=== PATIENT | female | born 1940 | race Caucasian/White ===

== ENCOUNTER 2017-03-18 07:24 | Day surgery (SDC) | payer MEDICARE ==
--- NOTE | 2017-03-18 07:19 | PCM.PREANE ---
Preanesthetic Assessment - Anesthesia/Transfusion/Family Hx Anesthesia History: Prior Anesthesia Without Reaction Family History of Anesthesia Reaction: No Transfusion History: Prior Transfusion Without Reaction Type of Transfusion Reactions: Reports: Unknown Intubation History: Unknown - Review of Systems General: No Symptoms Pulmonary: Other (COPD, emphysema ) Cardiovascular: Other (HTN, hx of [place] 3 years ago ) Gastrointestinal: No symptoms Neurological: Other (hx of TIA) Other: Reports: Easy Bruising, Thyroid Problems (hypothyroidism), Depression - Physical Assessment NPO Status Date: 03/17/17 NPO Status Time: 23:00 Pulse: 77 O2 Sat by Pulse Oximetry: 98 Respiratory Rate: 17 Blood Pressure: 149/77 Height: 1.6 m Weight: 37.195 kg ASA Class: 3 Mental Status: Alert & Oriented x3 Airway Class: Mallampati = 2 Dentition: Reports: Dentures (top), Partial (bottom) Thyro-Mental Finger Breadths: 3 Mouth Opening Finger Breadths: 3 ROM/Head Extension: Full Lungs: Clear to auscultation, Normal respiratory effort Cardiovascular: Regular Rate, Regular Rhythm - Allergies Allergies/Adverse Reactions: Allergies Allergy/AdvReac Type Severity Reaction Status Date / Time nickel Allergy Mild Rash Verified 03/17/17 14:09 acetaminophen [From Tylenol] Allergy eye and Verified 03/17/17 14:09 facial swelling Iodinated Contrast Media - Allergy Shortness Verified 03/17/17 14:09 Oral and of Breath [Iodinated Contrast Media - IV Dye] - Blood Blood Available: No Product(s) Available: None - Acknowledgements Anesthesia Type Planned: MAC Pt an Appropriate Candidate for the Planned Anesthesia: Yes Alternatives and Risks of Anesthesia Discussed w Pt/Guardian: Yes Pt/Guardian Understands and Agrees with Anesthesia Plan: Yes PreAnesthesia Questionnaire HEENT History: Reports: Impaired Vision, Other (See Below) Other HEENT History: glaucoma, jaw pain, dentures, glasses Cardiovascular History: Reports: Hypertension, Other (See Below) Other Cardiovascular History: chest pain, edema Respiratory History: Reports: COPD, Other (See Below) Other Respiratory History: emphysema Gastrointestinal History: Reports: Other (See Below) Other Gastrointestinal History: abdominal pain Genitourinary History: Reports: Other (See Below) Other Genitourinary History: urgency CHIEF INSPECTOR History: Reports: None Musculoskeletal History: Reports: Osteoporosis, RA, Other (See Below) Other Musculoskeletal History: osteopenia Neurological History: Reports: CVA, TIA, Other (See Below) Other Neuro History: cerebrovascular disease Psychiatric History: Reports: Depression Other Psychiatric History: fatigue Endocrine/Metabolic History: Reports: Hypothyroidism, Vitamin D Deficiency, Other (See Below) Other Endocrine/Metabolic History: hyperglycemia Hematologic History: Reports: Anemia, Other (See Below) Other Hematologic History: hyponatremia, myelodysplastic syndrome, macrocytic anemia Immunologic History: Reports: None Dermatologic History: Reports: None - Past Surgical History Head Surgeries/Procedures: Reports: None HEENT Surgical History: Reports: Cataract Surgery Cardiovascular Surgical History: Reports: Carotid Endarterectomy, Other (See Below) Other Cardiovascular Surgeries/Procedures: celiac artery stent GI Surgical History: Reports: Appendectomy Female Surgical History: Reports: Tubal Ligation Musculoskeletal Surgical History: Reports: Other (See Below) Other Musculoskeletal Surgeries/Procedures:: compresssion fracture, L carpal tunnel surgery, kyphoplasty Oncologic Surgical History: Reports: Bone Marrow Aspiration - SUBSTANCE USE Smoking Status *Q: Current Some Day Smoker Recreational Drug Use History: No - HOME MEDS Home Medications: Home Meds Losartan [Cozaar] 100 mg PO DAILY 01/10/15 [History] Phosp Acid/Dextrose/Fructose [Emetrol Oral Solution] 118 ml PO DAILY PRN [History] traMADol [Ultram] 50 mg PO Q8H PRN 06/29/15 [History] hydrALAZINE [Apresoline] 10 mg PO DAILY 10/17/15 [History] Calcium Carb & Citrate/Vit D3 [Calcium + D3 ER Tablet] 1 tab PO DAILY 03/17/17 [ History] Levothyroxine [Synthroid] 100 mg PO Q48H 03/17/17 [History] Menthol/Dimeth/Aloe Vera/Vit E [Gold [place] Body Lotion] 1 applic TOP ASDIRECTED PRN 03/17/17 [History] amLODIPine [Norvasc] 10 mg PO DAILY 03/17/17 [History] diphenhydrAMINE HCl [Benadryl] 25 mg PO DAILY 03/17/17 [History] - CURRENT (IN HOUSE) MEDS Current Meds: Current Medications Lactated Ringer's (Ringers, Lactated) 1,000 mls @ 125 mls/hr IV ASDIRECTED AYLA Stop: 03/18/17 23:00 Lidocaine/Sodium Bicarbonate (Buffered Lidocaine 1% In Ns 8.4%) 0.25 ml .XX ONETIME PRN PRN Reason: Prior to IV Start Stop: 03/18/17 18:00 Sodium Chloride (Saline Flush) 10 ml FLUSH ASDIRECTED PRN PRN Reason: Keep Vein Open Stop: 03/18/17 18:00
[~2017-03-18 07:24] MED LIST: Lactated Ringers 1,000 ML IV SCH; Lidocaine 1%/Sod Bicarbonate in NS 8.4% 1 ML Syringe PRN; Sodium Chloride 0.9% 10 ML Syringe FLUSH PRN
[2017-03-18] MEDS ORDERED: fentaNYL 100 MCG/2 ML SDV ONE (07:33)
[2017-03-18] MEDS ORDERED: Propofol 200 MG/20 ML SDV ONE (07:33)
[2017-03-18] MEDS ORDERED: Lidocaine 1% 4 ML ONE (07:33)
[2017-03-18] MEDS ORDERED: Heparin Sodium 5,000 Units/ML Vial ONE (07:39)
[2017-03-18] MEDS ORDERED: Lidocaine 1% 30 ML SDV ONE (07:39)
[2017-03-18] MEDS ORDERED: ePHEDrine/Normal Saline 25 MG/5 ML Syringe ONE (08:36)
--- NOTE | 2017-03-18 08:37 | PCM48HPAN ---
Post Anesthesia Note - EVALUATION WITHIN 48HRS OF ANESTHETIC Vital Signs in Normal Range: Yes Patient Participated in Evaluation: Yes Respiratory Function Stable: Yes Airway Patent: Yes Cardiovascular Function Stable: Yes Hydration Status Stable: Yes Pain Control Satisfactory: Yes Nausea and Vomiting Control Satisfactory: Yes Mental Status Recovered: Yes
[2017-03-18 10:08] VITALS: BP 123/75
--- NOTE | 2017-03-18 13:08 | PCM.OPNOTE ---
- General Post-Op/Procedure Note Date of Surgery/Procedure: 03/18/17 Operative Procedure(s): Bone marrow biopsy and aspiration Pre Op Diagnosis: Myelodysplastic disorder Post-Op Diagnosis: Same Anesthesia Technique: Local (3 mL), MAC Primary Surgeon: Keely Choi Anesthesia Provider: Siva Beatty Pathology: 1. Bone marrow aspirate 2. Bone marrow core Fluid Replacement, Intraop: 500 (mL crystalloid ) EBL in mLs: 10 (mL (aspirate) ) Complications: None Condition: Good Free Text/Narrative:: Indication for Procedure: The patient is a 76-year-old woman was referred to me by Dr. Srikanth Bassett for bone marrow biopsy for further work-up of myelodysplastic disorder. I discussed with the patient bone marrow biopsy and associated risks of the procedure. The patient found these risks acceptable and agreed to proceed. Description of Procedure: The patient was taken to the operating room and placed in the left lateral decubitus position. After induction of adequate sedation, the right posterior iliac crest was identified anatomically and the area was prepped with chlorhexidine. 6 mL of local anesthetic was injected into the target insertion site into the posterior iliac crest and associated periosteum. A small stab incision was made using a scalpel after a sterile drape was applied. A [employer] bone marrow biopsy kit was utilized. The bone marrow core biopsy needle was introduced into the posterior iliac crest and the inner cannula removed. 10 mL of bone marrow was rapidly aspirated without difficulty and this was immediately placed into a heparinated syringe.The bone marrow biopsy needle was removed and pressure was held. The inner cannula was replaced and the biopsy trocar was once again introduced through the incision site and placed in a slightly different position on the posterior iliac crest for obtaining a core bone marrow sample. A core sample was obtained and given to speech pathology teacher for slide preparation. The sample did appear to be adequate. Pressure was held at the incision site for a total of 5 minutes. Gauze and a band-aid was applied. The patient was returned to a supine position and pressure was placed on the biopsy site. An additional peripheral blood specimen during was drawn during today's visit for pathology for performance of the peripheral smear. The patient was awakened from sedation and returned to the recovery room in stable condition having tolerated the procedure well. Sponge and instrument counts were reported as correct at the end of the case. Instructions were given for pathology to obtain FISH/cytogenetics, an MDS/ panel , and flow cytometry. Postoperative Plan: The patient will be contacted by Dr. Bassett's office regarding their bone marrow biopsy results. The patient is to call my office with any questions or concerns regarding the bone marrow biopsy site or concerns regarding the procedure.
== END 2017-03-18 09:55 | disposition home or self-care (01) ==
LOC: JD.SDS 07:24
PROVIDERS: ATTEND Surgery
DX: D46.9 Myelodysplastic syndrome, unspecified (principal); I10 Essential (primary) hypertension; F17.210 Nicotine dependence, cigarettes, uncomplicated; J43.9 Emphysema, unspecified; I25.2 Old myocardial infarction; E03.9 Hypothyroidism, unspecified; F32.9 Major depressive disorder, single episode, unspecified; E55.9 Vitamin D deficiency, unspecified; Z98.51 Tubal ligation status; Z90.49 Acquired absence of other specified parts of digestive tract; Z86.73 Personal history of transient ischemic attack (TIA), and cerebral infarction without residual deficits; Z79.899 Other long term (current) drug therapy; Z98.890 Other specified postprocedural states
CPT/HCPCS: 36415; 38221; 85025; 85045; 85097; G0364; J1644; J3010; J7050; J7120; 01112; 88184; 88185; 88187; 88305; 88311; 88313; J2704

== ENCOUNTER 2020-01-09 17:11 | Inpatient (IN) | payer MEDICARE, MEDICAID ==
[2020-01-09] MEDS ORDERED: Sodium Chloride 0.9% 10 ML Syringe FLUSH PRN (17:33)
[2020-01-09] MEDS ORDERED: Sodium Chloride 0.9% 1,000 ML IV SCH (17:45)
--- NOTE | 2020-01-09 17:59 | EDM.PDOC ---
ED HPI GENERAL MEDICAL PROBLEM - General Chief Complaint: General Stated Complaint: [facility] Time Seen by Provider: 01/09/20 17:25 Source of Information: Reports: Patient, EMS, Half-Way Records History Limitations: Reports: No Limitations - History of Present Illness INITIAL COMMENTS - FREE TEXT/NARRATIVE: The patient presents from [facility] because she cannot get around with there waking aids and she cannot feed herself. This has been going on for a few days. She is requiring more help. When I ask her how she is doing, she is worried about some back pain she has been having in her upper and lower back. She says she gets severe cramps. They come and go. She has no recent injury. She has no fever or chills. She denies chest pain or shortness of breath. She has no abdominal pain, nausea or vomiting. She has generalized weakness. She has no dysuria or diarrhea. Onset: Gradual Duration: Day(s): Location: Reports: Back Quality: Reports: Sharp Severity: Severe Improves with: Reports: Immobilization Worsens with: Reports: Movement Context: Denies: Trauma Associated Symptoms: Reports: No Other Symptoms Back Pain Score (Numeric/FACES): 6 - Related Data Allergies Allergy/AdvReac Type Severity Reaction Status Date / Time nickel Allergy Mild Rash Verified 01/09/20 17:24 aspirin Allergy Other Verified 01/09/20 17:24 Iodinated Contrast Media Allergy Shortness Verified 01/09/20 17:24 [Iodinated Contrast Media - of Breath IV Dye] acetaminophen [From Tylenol] AdvReac Swollen Verified 01/09/20 17:24 Eyes Home Meds: Home Meds traMADol [Ultram] 50 mg PO Q6H PRN 06/29/15 [History] Ondansetron [Zofran] 1 tab PO Q4H PRN 08/12/17 [History] Emollient Base [Emollient] 1 applic TOP DAILY PRN 12/01/18 [History] Losartan [Cozaar] 25 mg PO DAILY 12/01/18 [History] Biotin 5,000 mcg PO DAILY 04/14/19 [History] Cyanocobalamin (Vitamin B-12) [Vitamin B-12] 1,000 mcg PO DAILY 04/14/19 [ History] Deferasirox [Jadenu] 360 mg PO DAILY 04/14/19 [History] Dextran 70/Hypromellose [Artificial Tears] 1 drop OP ASDIRECTED 04/14/19 [ History] Furosemide [Lasix] 40 mg PO DAILY 04/14/19 [History] Lactose-Reduced Food [Ensure] 4 oz PO BID 04/14/19 [History] Lutein/Min/Vit C/Vit E Acetate [Ocuvite Lutein] 1 cap PO DAILY 04/14/19 [History ] Nitroglycerin [Nitrostat] 0.4 mg SL ASDIRECTED PRN 04/14/19 [History] Tamsulosin [Tamsulosin 24 Hr] 0.4 mg PO DAILY 04/14/19 [History] Zinc Oxide/Petrolatum,White [[place] Moist Barrier Cream] 1 applicful TOP ASDIRECTED PRN 08/04/19 [History] Levothyroxine [Synthroid] 100 mcg PO ACBREAKFAST 10/27/19 [History] Past Medical History HEENT History: Reports: Impaired Vision, Other (See Below) Other HEENT History: glaucoma, jaw pain, dentures, glasses Cardiovascular History: Reports: Hypertension, Other (See Below) Other Cardiovascular History: chest pain, edema Respiratory History: Reports: COPD, Other (See Below) Other Respiratory History: emphysema Gastrointestinal History: Reports: Other (See Below) Other Gastrointestinal History: abdominal pain Genitourinary History: Reports: Other (See Below) Other Genitourinary History: urgency SIGNAL REPAIRER History: Reports: None Musculoskeletal History: Reports: Osteoporosis, RA, Other (See Below) Other Musculoskeletal History: osteopenia Neurological History: Reports: CVA, TIA, Other (See Below) Other Neuro History: cerebrovascular disease Psychiatric History: Reports: Depression Other Psychiatric History: fatigue Endocrine/Metabolic History: Reports: Hypothyroidism, Vitamin D Deficiency, Other (See Below) Other Endocrine/Metabolic History: hyperglycemia Hematologic History: Reports: Anemia, Other (See Below) Other Hematologic History: hyponatremia, myelodysplastic syndrome, macrocytic anemia Immunologic History: Reports: None Dermatologic History: Reports: None - Past Surgical History Head Surgeries/Procedures: Reports: None HEENT Surgical History: Reports: Cataract Surgery Cardiovascular Surgical History: Reports: Carotid Endarterectomy, Other (See Below) Other Cardiovascular Surgeries/Procedures: celiac artery stent GI Surgical History: Reports: Appendectomy Female Surgical History: Reports: Tubal Ligation Musculoskeletal Surgical History: Reports: Other (See Below) Other Musculoskeletal Surgeries/Procedures:: compresssion fracture, L carpal tunnel surgery, kyphoplasty Oncologic Surgical History: Reports: Bone Marrow Aspiration Social & Family History - Tobacco Use Smoking Status *Q: Former Smoker Used Tobacco, but Quit: Yes Month/Year Tobacco Last Used: nov 2018 - Caffeine Use Caffeine Use: Reports: Coffee - Recreational Drug Use Recreational Drug Use: No ED ROS GENERAL - Review of Systems Review Of Systems: See Below Constitutional: Reports: No Symptoms HEENT: Reports: No Symptoms Respiratory: Reports: No Symptoms Cardiovascular: Reports: No Symptoms Endocrine: Reports: No Symptoms GI/Abdominal: Reports: No Symptoms : Reports: No Symptoms Musculoskeletal: Reports: Back Pain ED EXAM, GENERAL - Physical Exam Exam: See Below Exam Limited By: No Limitations General Appearance: Alert, No Apparent Distress Ears: Normal External Exam Nose: Normal Inspection Head: Atraumatic, Normocephalic Neck: Normal Inspection, Supple, Non-Tender Respiratory/Chest: No Respiratory Distress, Lungs Clear, Normal Breath Sounds Cardiovascular: Regular Rate, Rhythm, No Edema, No Murmur GI/Abdominal: Soft, Non-Tender, No Organomegaly, No Mass Back Exam: No: Paraspinal Tenderness, Vertebral Tenderness Extremities: Normal Inspection Neurological: Alert, No Motor/Sensory Deficits EKG INTERPRETATION EKG Date: 01/09/20 Time: 18:06 Rhythm: NSR Rate (Beats/Min): 72 Fe [employer]: LAD-Left Fe [employer] Deviation P-Wave: Present QRS: Normal ST-T: Normal QT: Normal [place]/PQ Interval: 1st degree HB Course - Vital Signs Last Recorded V/S: Last Vital Signs Temp 97.1 F 01/09/20 17:16 Pulse 81 01/09/20 17:16 Resp 16 01/09/20 17:16 BP 183/76 H 01/09/20 17:16 Pulse Ox 97 01/09/20 17:16 - Orders/Labs/Meds Orders: Active Orders 24 hr Category Date Time Status Cardiac Monitoring [RC] . DIRECTED Care 01/09/20 17:33 Active EKG Documentation Completion [RC] STAT Care 01/09/20 17:34 Active Peripheral IV Care [RC] . DIRECTED Care 01/09/20 17:34 Active UA W/MICROSCOPIC [URIN] Stat Lab 01/09/20 19:36 Received Sodium Chloride 0.9% [Normal Saline] 1,000 ml Med 01/09/20 17:45 Active IV ASDIRECTED Sodium Chloride 0.9% [Saline Flush] Med 01/09/20 17:33 Active 10 ml FLUSH ASDIRECTED PRN Peripheral IV Insertion Adult [OM.PC] Stat Oth 01/09/20 17:33 Ordered Medication Orders Sodium Chloride (Normal Saline) 1,000 mls @ 125 mls/hr IV ASDIRECTED AYLA Last Admin: 01/09/20 17:59 Dose: 125 mls/hr Sodium Chloride (Saline Flush) 10 ml FLUSH ASDIRECTED PRN PRN Reason: Keep Vein Open Last Admin: 01/09/20 19:18 Dose: 10 ml Labs: Laboratory Tests 01/09/20 01/09/20 Range/Units 17:55 17:55 WBC 4.92 (3.98-10.04) K/mm3 RBC 3.39 L (3.98-5.22) M/mm3 Hgb 9.6 L D (11.2-15.7) gm/dl Hct 31.0 L (34.1-44.9) % MCV 91.4 (79.4-94.8) fl MCH 28.3 (25.6-32.2) pg MCHC 31.0 L (32.2-35.5) g/dl RDW Std Deviation 65.0 H (36.4-46.3) fL Plt Count 191 D (182-369) K/mm3 MPV 10.8 (9.4-12.3) fl Neut % (Auto) 64.6 (34.0-71.1) % Lymph % (Auto) 16.3 L (19.3-51.7) % [place] % (Auto) 17.3 H (4.7-12.5) % Eos % (Auto) 1.2 (0.7-5.8) Baso % (Auto) 0.4 (0.1-1.2) % Neut # (Auto) 3.18 (1.56-6.13) K/mm3 Lymph # (Auto) 0.80 L (1.18-3.74) K/mm3 [place] # (Auto) 0.85 H (0.24-0.36) K/mm3 Eos # (Auto) 0.06 (0.04-0.36) K/mm3 Baso # (Auto) 0.02 (0.01-0.08) K/mm3 Manual Slide Review Abnormal smear Sodium 138 (136-145) mEq/L Potassium 4.0 (3.5-5.1) mEq/L Chloride 100 (98-107) mEq/L Carbon Dioxide 29 (21-32) mEq/L Anion Gap 13.0 (5-15) BUN 52 H D (7-18) mg/dL Creatinine 1.6 H (0.55-1.02) mg/dL Est Cr Clr Drug Dosing 17.38 mL/min Estimated GFR (MDRD) 31 (>60) mL/min BUN/Creatinine Ratio 32.5 H (14-18) Glucose 111 (83-115) mg/dL Calcium 8.5 (8.5-10.1) mg/dL Magnesium 2.3 (1.8-2.4) mg/dl Total Bilirubin 0.7 (0.2-1.0) mg/dL AST 17 (15-37) U/L ALT 31 (14-59) U/L Alkaline Phosphatase 84 (46-116) U/L Troponin I < 0.017 (0.00-0.056) ng/mL C-Reactive Protein 1.3 H* (<1.0) mg/dL Total Protein 6.9 (6.4-8.2) g/dl Albumin 3.6 (3.4-5.0) g/dl Globulin 3.3 gm/dL Albumin/Globulin Ratio 1.1 (1-2) Meds: Medications Generic Name Dose Route Start Last Admin Trade Name Freq PRN Reason Stop Dose Admin Sodium Chloride 1,000 mls @ 125 mls/hr 01/09/20 17:45 01/09/20 17:59 Normal Saline IV 125 mls/hr ASDIRECTED AYLA Administration Sodium Chloride 10 ml 01/09/20 17:33 01/09/20 19:18 Saline Flush FLUSH 10 ml ASDIRECTED PRN Administration Keep Vein Open Discontinued Medications Generic Name Dose Route Start Last Admin Trade Name Freq PRN Reason Stop Dose Admin Tramadol HCl 50 mg 01/09/20 19:07 01/09/20 19:16 Ultram PO 01/09/20 19:08 50 mg ONETIME ONE Administration - Re-Assessments/Exams Free Text/Narrative Re-Assessment/Exam: 01/09/20 18:54 I ordered an IV NS at 125ml/hr, EKG, CT of her head, lumbar and thoracic spine, labs and UA. Her EKG shows a NSR with no acute changes. Her WBC was normal. Her Hgb was low at 9.6. Her creatinine is elevated at 1.6. Her troponin is negative. Her CRP was elevated at 1.3. Her CT shows senescent changes. Nothing acute is seen on noncontrast head CT exam. Mucosal thickening within the left side of the sphenoid sinus which is most likely chronic. 01/09/20 19:[address] of her lumbar spine shows diffuse endplate concavities throughout the lumbar spine. Circumferential disc bulging as noted above most severe at L4-L5 causing moderate central canal stenosis. Moderate right-sided neural foraminal stenosis also noted at L4-L5. Other degenerative change as noted above. No acute fracture line is appreciated. No abnormal subluxation is seen. The CT fo her thoracic spine shows multiple compression deformities. 2 levels of prior vertebroplasty also noted. No definite acute fracture line is seen. Mild scattered areas of neural foraminal stenosis is noted on both sides throughout the thoracic spine. 01/09/20 19:43 I feel she needs to be admitted. I called Dr Juarez and she agreed to the admission. Departure - Departure Time of Disposition: 19:50 Disposition: Refer to Observation Condition: Fair Clinical Impression: Compression fracture of body of thoracic vertebra, Bulging lumbar disc, Renal insufficiency Back pain Qualifiers: Back pain location: back pain in unspecified location Chronicity: acute Back pain laterality: bilateral Qualified Code(s): M54.9 - Dorsalgia, unspecified - Discharge Information Referrals: Katherine Beckford MD [Primary Care Provider] - Forms: ED Department Discharge Sepsis Event Note - Evaluation Sepsis Screening Result: No Definite Risk - Focused Exam Vital Signs: Vital Signs Temp Pulse Resp BP Pulse Ox 01/09/20 17:16 97.1 F 81 16 183/76 H 97 Date Exam was Performed: 01/09/20 Time Exam was Performed: 19:43 - My Orders Last 24 Hours: My Active Orders 01/09/20 17:33 Cardiac Monitoring [RC] . DIRECTED Sodium Chloride 0.9% [Saline Flush] 10 ml FLUSH ASDIRECTED PRN Peripheral IV Insertion Adult [OM.PC] Stat 01/09/20 17:34 EKG Documentation Completion [RC] STAT Peripheral IV Care [RC] . DIRECTED 01/09/20 17:45 Sodium Chloride 0.9% [Normal Saline] 1,000 ml IV ASDIRECTED 01/09/20 19:36 UA W/MICROSCOPIC [URIN] Stat - Assessment/Plan Last 24 Hours: My Active Orders 01/09/20 17:33 Cardiac Monitoring [RC] . DIRECTED Sodium Chloride 0.9% [Saline Flush] 10 ml FLUSH ASDIRECTED PRN Peripheral IV Insertion Adult [OM.PC] Stat 01/09/20 17:34 EKG Documentation Completion [RC] STAT Peripheral IV Care [RC] . DIRECTED 01/09/20 17:45 Sodium Chloride 0.9% [Normal Saline] 1,000 ml IV ASDIRECTED 01/09/20 19:36 UA W/MICROSCOPIC [URIN] Stat
--- NOTE | 2020-01-09 18:54 | CT ---
Head CT Technique: Multiple axial sections through the brain were obtained. Intravenous contrast was not utilized. Comparison: No prior head CT study. Findings: Ventricles along with basal cisterns and sulci over convexities are mildly prominent. Minimal areas of diminished density are noted within the periventricular white matter compatible with small vessel ischemic demyelination change. No other abnormal parenchymal densities are seen. No evidence of intracranial hemorrhage. No midline shift or mass effect is seen. Bone window settings were reviewed which shows nothing acute within the visualized mastoid sinuses. There is moderate mucosal thickening noted within the left sphenoid sinus. Other visualized paranasal sinuses are clear. Atherosclerotic calcification is seen within the carotid siphon. Impression: 1. Senescent change as noted above. 2. Nothing acute is seen on noncontrast head CT exam. 3. Mucosal thickening within the left side of the sphenoid sinus which is most likely chronic. Diagnostic code #2 Study was dictated in MDT
[2020-01-09] MEDS ORDERED: traMADol 50 MG Tab PO ONE (19:07)
--- NOTE | 2020-01-09 19:21 | CT ---
CT thoracic spine Technique: Multiple axial sections through the thoracic spine were obtained. Reconstructed sagittal and coronal images were obtained. Comparison: Prior thoracic spine plain film study of 08/03/13. Findings: Moderately severe compression deformities are noted at T4, T5 and T6. Mild compression deformity of T8 is seen. Mild compression deformity of T9 is noted. Prior vertebroplasty is noted within T10 and T12. Mild compression deformity is noted of T3. Compression deformities result in kyphosis. Scattered degenerative apophyseal change is seen throughout the thoracic spine. No definite acute fracture line is seen. No central canal stenosis is seen. Scattered areas of neural foraminal stenosis are noted on both sides. Impression: 1. Multiple compression deformities. 2 levels of prior vertebroplasty are also noted. 2. No definite acute fracture line is seen. 3. Mild scattered areas of neural foraminal stenosis is noted on both sides throughout the thoracic spine. Note: To completely rule out acute compression deformity, MRI would be needed. Diagnostic code #3 Study was dictated in MDT
--- NOTE | 2020-01-09 19:21 | CT ---
CT lumbar spine Technique: Multiple axial sections were obtained through the lumbar spine. Reconstructed sagittal and coronal images were reviewed. Findings: Endplate concavities are seen throughout the lumbar spine. Bony structures are osteoporotic. Degenerative apophyseal change is seen throughout the lumbar spine most severe within the lower lumbar spine. Slight circumferential disc bulge is seen at L2-3. Slightly more prominent disc bulge is noted at L3-L4. Circumferential disc bulge is noted at L4-L5 with findings causing moderate central canal stenosis. There is also right-sided neural foraminal stenosis at this level. L5-S1 disc shows slight circumferential disc bulge with no central canal stenosis. No other levels of neural foraminal stenosis are believed to be present. No acute fracture line is appreciated. No abnormal subluxation is noted. Impression: 1. Diffuse endplate concavities throughout the lumbar spine. 2. Circumferential disc bulging as noted above most severe at L4-L5 causing moderate central canal stenosis. Moderate right-sided neural foraminal stenosis also noted at L4-L5. Other degenerative change as noted above. 3. No acute fracture line is appreciated. No abnormal subluxation is seen. Note: To completely rule out acute compression deformities, MRI would be needed. Diagnostic code #3 Study was dictated in MDT
[2020-01-09] MEDS ORDERED: Morphine 2 MG/ML Syringe IVPUSH PRN (20:30)
[2020-01-09] MEDS ORDERED: methylPREDNISolone Sodium Succinate 40 MG/1 ML SDV IVPUSH SCH (20:30)
[2020-01-10] MEDS: methylPREDNISolone Sodium Succinate 40 MG/1 ML SDV IVPUSH SCH ×3 (07:53→22:06)
[2020-01-10] MEDS: traMADol 50 MG Tab PO PRN ×3 (11:35→22:06)
[2020-01-10] MEDS: Heparin Sodium 5,000 Units/ML Vial SUBCUT SCH ×2 (11:36→22:05)
[2020-01-10] MEDS: Lactated Ringers 1,000 ML IV SCH (11:37)
--- NOTE | 2020-01-10 12:07 | PCM.HP.2 ---
H&P History of Present Illness - General Date of Service: 01/10/20 Admit Problem/Dx: Admission Diagnosis/Problem Admission Diagnosis/Problem Fracture of thoracic spine Source of Information: Patient, Old Records, Provider, RN, RN Notes Reviewed History Limitations: Reports: No Limitations - History of Present Illness Initial Comments - Free Text/Narative: Loli Hernández is an 79 yo female who presented to ED on the evening of 2019 via [place] ambulance from [place] where she resides due to difficulty with ambulation and inability to feed herself. Is reported this is been going on for a few days and she is requiring more help from staff. She complains of upper and lower back pain with severe cramps that come and go. Denies any recent injury or infectious symptoms. Denies any chest pain or shortness of breath. Denies abdominal pain, nausea, vomiting, dysuria, or diarrhea. She does report generalized weakness. In the ED temp is 97.1 Fahrenheit. Pulse 81. Respirations 16. Blood pressure 183/76. Pulse ox 97%. Twelve-lead EKG is obtained interpreted by the ED provider a sinus rhythm at 72 bpm with a first-degree heart block. CBC is remarkable for a low hemoglobin of 9.6 and low platelets of 191. Sodium is 138 , potassium 4.0. Chloride 100. Carbon oxide 29. Anion gap is 13. BUN is very high at 52. Creatinine is high at 1.6. EGFR is 31. Glucose is 111. Calcium is 8.5. Magnesium 2.3. Bilirubin 0.7. AST 17, ALT 31, alkaline phosphatase 84. Troponin is negative at less than 0.017. CRP is 1.3. Protein is 6.9. Albumin 3.6. She given a 50 mg p.o. tramadol and started on 125 mils of normal saline. CT of the thoracic spine is obtained and interpreted by Dr. Grey as "1. Multiple compression deformities. 2 levels of prior vertebroplasty are also noted. 2. No definitive acute fracture line is seen. 3. Mild scattered areas of neural foraminal stenosis is noted on both sides throughout the thoracic spine." CT of the lumbar spine is obtained showing "1. Diffuse endplate concavity throughout the lumbar spine. 2. Circumferential disc bulging as noted above most severe at L4-L5 causing moderate central canal stenosis. Moderate right-sided neuroforaminal stenosis also noted at L4-L5. Other degenerative changes noted above. 3. No acute fracture line is appreciated. No abnormal subluxation is seen." Head CT is obtained and interpreted by Dr. Grey as "1. Senescent changes noted above. 2. Nothing acute is seen on noncontrast head CT exam. 3. Mucosal thickening within the left side of the sphenoid sinus which is most likely chronic." She carries a history of glaucoma, hypertension, edema, COPD, emphysema, osteoporosis, RA, osteopenia, CVA, TIA, cerebrovascular disease, depression, fatigue, hypothyroidism, vitamin D deficiency, hyperglycemia, anemia, hyponatremia, myelodysplastic syndrome, macrocytic anemia. She is a former smoker. Her PCP is Dr. Beckford. She sees Dr. Bassett for hematology/oncology. She subsequently admitted to the medical floor for management of her acute on chronic back pain and renal insufficiency. Back Pain Score (Numeric/FACES): 7 - Related Data Allergies/Adverse Reactions: Allergies Allergy/AdvReac Type Severity Reaction Status Date / Time nickel Allergy Mild Rash Verified 01/09/20 17:24 aspirin Allergy Other Verified 01/09/20 17:24 Iodinated Contrast Media Allergy Shortness Verified 01/09/20 17:24 [Iodinated Contrast Media - of Breath IV Dye] acetaminophen [From Tylenol] AdvReac Swollen Verified 01/09/20 17:24 Eyes Home Medications: Home Meds traMADol [Ultram] 50 mg PO Q4HR PRN 06/29/15 [History] Ondansetron [Zofran] 1 tab PO Q4H PRN 08/12/17 [History] Emollient Base [Emollient] 1 applic TOP DAILY PRN 12/01/18 [History] Losartan [Cozaar] 25 mg PO DAILY 12/01/18 [History] Cyanocobalamin (Vitamin B-12) [Vitamin B-12] 500 mcg PO DAILY 04/14/19 [History] Deferasirox [Jadenu] 360 mg PO DAILY 04/14/19 [History] Furosemide [Lasix] 40 mg PO DAILY 04/14/19 [History] Lactose-Reduced Food [Ensure] 4 oz PO BID 04/14/19 [History] Lutein/Min/Vit C/Vit E Acetate [Ocuvite Lutein] 1 cap PO DAILY 04/14/19 [History ] Nitroglycerin [Nitrostat] 0.4 mg SL ASDIRECTED PRN 04/14/19 [History] Tamsulosin [Tamsulosin 24 Hr] 0.4 mg PO DAILY 04/14/19 [History] Biotin 5,000 mcg PO DAILY 01/09/20 [History] Carboxymethylcellulose Sodium [Artificial Tears] 1 drop EYEBOTH DAILY PRN [History] Levothyroxine Sodium [Levoxyl] 88 mcg PO DAILY 01/09/20 [History] Sennosides/Docusate Sodium [Senna-S] 1 tab PO DAILY PRN 01/09/20 [History] tiZANidine HCl [Zanaflex] 1 mg PO Q12H PRN 01/09/20 [History] Past Medical History HEENT History: Reports: Impaired Vision, Other (See Below) Other HEENT History: glaucoma, dentures Full upper and partial lower, glasses Cardiovascular History: Reports: Hypertension, Other (See Below) Other Cardiovascular History: chest pain, edema Respiratory History: Reports: COPD, SOB, Other (See Below) Other Respiratory History: emphysema Gastrointestinal History: Reports: Chronic Constipation, Other (See Below) Other Gastrointestinal History: abdominal pain Genitourinary History: Reports: UTI, Recurrent, Other (See Below) Other Genitourinary History: urgency DRIER 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: Reports: Musculoskeletal History: Reports: Osteoporosis, RA, Other (See Below) Other Musculoskeletal History: osteopenia Neurological History: Reports: CVA, TIA, Other (See Below) Other Neuro History: cerebrovascular disease Psychiatric History: Reports: Anxiety, Depression Other Psychiatric History: fatigue Endocrine/Metabolic History: Reports: Hypothyroidism, Vitamin D Deficiency, Other (See Below) Other Endocrine/Metabolic History: hyperglycemia Hematologic History: Reports: Anemia, Other (See Below) Other Hematologic History: hyponatremia, myelodysplastic syndrome, macrocytic anemia Immunologic History: Reports: None Oncologic (Cancer) History: Reports: Other (See Below) Other Oncologic History: Myodysplastic syndrome Dermatologic History: Reports: Other (See Below) Other Dermatologic History: Excessive dry skin - Infectious Disease History Infectious Disease History: Reports: Chicken Pox, Influenza, Measles - Past Surgical History Head Surgeries/Procedures: Reports: None HEENT Surgical History: Reports: Cataract Surgery Cardiovascular Surgical History: Reports: Carotid Endarterectomy, Other (See Below) Other Cardiovascular Surgeries/Procedures: celiac artery stent Respiratory Surgical History: Reports: None GI Surgical History: Reports: Appendectomy Female Surgical History: Reports: Tubal Ligation Neurological Surgical History: Reports: None Musculoskeletal Surgical History: Reports: Other (See Below) Other Musculoskeletal Surgeries/Procedures:: compresssion fracture, L carpal tunnel surgery, kyphoplasty Oncologic Surgical History: Reports: Bone Marrow Aspiration, Other (See Below) Other Oncologic Surgeries/Procedures: several Social & Family History - Family History Family Medical History: Noncontributory - Tobacco Use Smoking Status *Q: Former Smoker Years of Tobacco use: 50 Packs/Tins Daily: 1 Used Tobacco, but Quit: Yes Month/Year Tobacco Last Used: 12/14 Second Hand Smoke Exposure: No - Caffeine Use Caffeine Use: Reports: Coffee Caffeine Use Comment: 10 cups a day - Recreational Drug Use Recreational Drug Use: No H&P Review of Systems - Review of Systems: Review Of Systems: See Below General: Reports: Malaise, Weakness, Fatigue. Denies: Fever, Chills HEENT: Reports: No Symptoms. Denies: Headaches, Sore Throat Pulmonary: Reports: No Symptoms. Denies: Shortness of Breath, Wheezing, Pleuritic Chest Pain, Cough, Sputum Cardiovascular: Reports: No Symptoms. Denies: Chest Pain, Palpitations, Dyspnea on Exertion Gastrointestinal: Reports: No Symptoms. Denies: Abdominal Pain, Constipation, Diarrhea, Nausea, Vomiting Genitourinary: Reports: Urgency (chronic). Denies: Pain Musculoskeletal: Reports: Neck Pain, Back Pain Skin: Reports: No Symptoms Psychiatric: Reports: No Symptoms Neurological: Reports: Numbness, Tingling, Difficulty Walking, Weakness, Gait Disturbance. Denies: Headache Hematologic/Lymphatic: Reports: No Symptoms Immunologic: Reports: No Symptoms Exam - Exam Exam: See Below - Vital Signs Vital Signs: Last Vital Signs Temp 97.7 F 01/10/20 12:00 Pulse 72 01/10/20 12:00 Resp 16 01/10/20 12:00 BP 147/82 H 01/10/20 12:00 Pulse Ox 96 01/10/20 12:00 Weight: 86 lb 12.8 oz - Exam Quality Assessment: DVT Prophylaxis. No: Supplemental Oxygen General: Alert, Oriented, Cooperative. No: Mild Distress HEENT: Conjunctiva Clear, Hearing Intact, Mucosa Moist & [place], PERRLA Neck: Supple, Trachea Midline Lungs: Clear to Auscultation, Normal Respiratory Effort Cardiovascular: Regular Rate, Regular Rhythm GI/Abdominal Exam: Normal Bowel Sounds, Soft, Non-Tender, No Distention (Female) Exam: Deferred Rectal (Female) Exam: Deferred Back Exam: Normal Inspection, Decreased Range of Motion, Paraspinal Tenderness, Vertebral Tenderness Extremities: Normal Inspection, Non-Tender, No Pedal Edema Skin: Warm, Dry, Intact Neurological: Cranial Nerves Intact (grossly) Neuro Extensive - Mental Status: Alert - Patient Data Lab Results Last 24 hrs: Laboratory Results - last 24 hr 01/09/20 01/09/20 01/09/20 Range/Units 17:55 17:55 19:36 WBC 4.92 (3.98-10.04) K/mm3 RBC 3.39 L (3.98-5.22) M/mm3 Hgb 9.6 L D (11.2-15.7) gm/dl Hct 31.0 L (34.1-44.9) % MCV 91.4 (79.4-94.8) fl MCH 28.3 (25.6-32.2) pg MCHC 31.0 L (32.2-35.5) g/dl RDW Std Deviation 65.0 H (36.4-46.3) fL Plt Count 191 D (182-369) K/mm3 MPV 10.8 (9.4-12.3) fl Neut % (Auto) 64.6 (34.0-71.1) % Lymph % (Auto) 16.3 L (19.3-51.7) % [place] % (Auto) 17.3 H (4.7-12.5) % Eos % (Auto) 1.2 (0.7-5.8) Baso % (Auto) 0.4 (0.1-1.2) % Neut # (Auto) 3.18 (1.56-6.13) K/mm3 Lymph # (Auto) 0.80 L (1.18-3.74) K/mm3 [place] # (Auto) 0.85 H (0.24-0.36) K/mm3 Eos # (Auto) 0.06 (0.04-0.36) K/mm3 Baso # (Auto) 0.02 (0.01-0.08) K/mm3 Manual Slide Review Abnormal smear Sodium 138 (136-145) mEq/L Potassium 4.0 (3.5-5.1) mEq/L Chloride 100 (98-107) mEq/L Carbon Dioxide 29 (21-32) mEq/L Anion Gap 13.0 (5-15) BUN 52 H D (7-18) mg/dL Creatinine 1.6 H (0.55-1.02) mg/dL Est Cr Clr Drug Dosing 17.38 mL/min Estimated GFR (MDRD) 31 (>60) mL/min BUN/Creatinine Ratio 32.5 H (14-18) Glucose 111 (83-115) mg/dL Calcium 8.5 (8.5-10.1) mg/dL Magnesium 2.3 (1.8-2.4) mg/dl Total Bilirubin 0.7 (0.2-1.0) mg/dL AST 17 (15-37) U/L ALT 31 (14-59) U/L Alkaline Phosphatase 84 (46-116) U/L Troponin I < 0.017 (0.00-0.056) ng/mL C-Reactive Protein 1.3 H* (<1.0) mg/dL Total Protein 6.9 (6.4-8.2) g/dl Albumin 3.6 (3.4-5.0) g/dl Globulin 3.3 gm/dL Albumin/Globulin Ratio 1.1 (1-2) Urine Color Yellow (Yellow) Urine Appearance Clear (Clear) Urine pH 6.5 (5.0-8.0) Ur Specific [place] 1.025 (1.005-1.030) Urine Protein Negative (Negative) Urine Glucose (UA) Negative (Negative) Urine Ketones Negative (Negative) Urine Occult Blood Negative (Negative) Urine Nitrite Negative (Negative) Urine Bilirubin Negative (Negative) Urine Urobilinogen 0.2 (0.2-1.0) Ur Leukocyte Esterase Negative (Negative) Urine RBC 0-5 (0-5) /hpf Urine WBC 0-5 (0-5) /hpf Ur Squamous Epith Cells 0-5 (0-5) /hpf Urine Bacteria Occasional (FEW) /hpf Urine Mucus Not seen (FEW) /hpf MRSA (PCR) 16/ Range/Units 20:50 WBC (3.98-10.04) K/mm3 RBC (3.98-5.22) M/mm3 Hgb (11.2-15.7) gm/dl Hct (34.1-44.9) % MCV (79.4-94.8) fl MCH (25.6-32.2) pg MCHC (32.2-35.5) g/dl RDW Std Deviation (36.4-46.3) fL Plt Count (182-369) K/mm3 MPV (9.4-12.3) fl Neut % (Auto) (34.0-71.1) % Lymph % (Auto) (19.3-51.7) % [place] % (Auto) (4.7-12.5) % Eos % (Auto) (0.7-5.8) Baso % (Auto) (0.1-1.2) % Neut # (Auto) (1.56-6.13) K/mm3 Lymph # (Auto) (1.18-3.74) K/mm3 [place] # (Auto) (0.24-0.36) K/mm3 Eos # (Auto) (0.04-0.36) K/mm3 Baso # (Auto) (0.01-0.08) K/mm3 Manual Slide Review Sodium (136-145) mEq/L Potassium (3.5-5.1) mEq/L Chloride (98-107) mEq/L Carbon Dioxide (21-32) mEq/L Anion Gap (5-15) BUN (7-18) mg/dL Creatinine (0.55-1.02) mg/dL Est Cr Clr Drug Dosing mL/min Estimated GFR (MDRD) (>60) mL/min BUN/Creatinine Ratio (14-18) Glucose (83-115) mg/dL Calcium (8.5-10.1) mg/dL Magnesium (1.8-2.4) mg/dl Total Bilirubin (0.2-1.0) mg/dL AST (15-37) U/L ALT (14-59) U/L Alkaline Phosphatase (46-116) U/L Troponin I (0.00-0.056) ng/mL C-Reactive Protein (<1.0) mg/dL Total Protein (6.4-8.2) g/dl Albumin (3.4-5.0) g/dl Globulin gm/dL Albumin/Globulin Ratio (1-2) Urine Color (Yellow) Urine Appearance (Clear) Urine pH (5.0-8.0) Ur Specific [place] (1.005-1.030) Urine Protein (Negative) Urine Glucose (UA) (Negative) Urine Ketones (Negative) Urine Occult Blood (Negative) Urine Nitrite (Negative) Urine Bilirubin (Negative) Urine Urobilinogen (0.2-1.0) Ur Leukocyte Esterase (Negative) Urine RBC (0-5) /hpf Urine WBC (0-5) /hpf Ur Squamous Epith Cells (0-5) /hpf Urine Bacteria (FEW) /hpf Urine Mucus (FEW) /hpf MRSA (PCR) Negative Result Diagrams: 01/09/20 17:55 01/09/20 17:55 Sepsis Event Note - Evaluation Sepsis Screening Result: No Definite Risk - Focused Exam Vital Signs: Vital Signs Temp Temp Pulse Pulse Resp BP BP 01/10/20 12:00 97.7 F 72 16 147/82 H 01/10/20 07:50 98.1 F 88 18 135/99 H 01/10/20 04:42 98.1 F 75 16 122/69 01/10/20 00:57 98.1 F 73 16 131/78 Pulse Ox 01/10/20 12:00 96 01/10/20 07:50 96 01/10/20 04:42 92 L 01/10/20 00:57 93 L Date Exam was Performed: 01/10/20 Time Exam was Performed: 16:16 - Problem List (1) First degree AV block SNOMED Code(s): 241831661 ICD Code: I44.0 - ATRIOVENTRICULAR BLOCK, FIRST DEGREE Status: Chronic Priority: Low Current Visit: No (2) Glaucoma SNOMED Code(s): 61310249 ICD Code: H40.9 - UNSPECIFIED GLAUCOMA Status: Chronic Priority: Low Current Visit: No Qualifiers: Glaucoma type: unspecified (3) HTN (hypertension) SNOMED Code(s): 21177877 ICD Code: I10 - ESSENTIAL (PRIMARY) HYPERTENSION Status: Chronic Priority : Medium Current Visit: No Qualifiers: Hypertension type: unspecified Qualified Code(s): I10 - Essential (primary ) hypertension (4) COPD (chronic obstructive pulmonary disease) SNOMED Code(s): 39150874 ICD Code: J44.9 - CHRONIC OBSTRUCTIVE PULMONARY DISEASE, UNSPECIFIED Status : Chronic Priority: Low Current Visit: No Qualifiers: COPD type: unspecified COPD Qualified Code(s): J44.9 - Chronic obstructive pulmonary disease, unspecified (5) Emphysema of lung SNOMED Code(s): 35183994 ICD Code: J43.9 - EMPHYSEMA, UNSPECIFIED Status: Chronic Priority: Low Current Visit: No Qualifiers: Emphysema type: unspecified Qualified Code(s): J43.9 - Emphysema, unspecified (6) Osteoporosis SNOMED Code(s): 55632101 ICD Code: M81.0 - AGE-RELATED OSTEOPOROSIS W/O CURRENT PATHOLOGICAL FRACTURE Status: Chronic Priority: Medium Current Visit: Yes Qualifiers: Osteoporosis type: unspecified Presence of current pathological fracture: unspecified Qualified Code(s): M81.0 - Age-related osteoporosis without current pathological fracture (7) Rheumatoid arthritis SNOMED Code(s): 36603841 ICD Code: M06.9 - RHEUMATOID ARTHRITIS, UNSPECIFIED Status: Chronic Priority: Low Current Visit: No Qualifiers: Rheumatoid arthritis location: unspecified site Rheumatoid factor presence : unspecified presence Qualified Code(s): M06.9 - Rheumatoid arthritis, unspecified (8) Osteopenia SNOMED Code(s): 237311663 ICD Code: M85.80 - OTH DISRD OF BONE DENSITY AND STRUCTURE, UNSPECIFIED SITE Status: Chronic Priority: Medium Current Visit: Yes Qualifiers: Osteopenia location: unspecified Qualified Code(s): M85.80 - Other specified disorders of bone density and structure, unspecified site (9) History of CVA (cerebrovascular accident) SNOMED Code(s): 408587418 ICD Code: Z86.73 - PRSNL HX OF TIA (TIA), AND CEREB INFRC W/O RESID DEFICITS Status: Chronic Priority: Low Current Visit: No (10) History of TIA (transient ischemic attack) SNOMED Code(s): 935181481 ICD Code: Z86.73 - PRSNL HX OF TIA (TIA), AND CEREB INFRC W/O RESID DEFICITS Status: Chronic Priority: Low Current Visit: No (11) Cerebrovascular disease SNOMED Code(s): 14234572 ICD Code: I67.9 - CEREBROVASCULAR DISEASE, UNSPECIFIED Status: Chronic Priority: Low Current Visit: No (12) Depression SNOMED Code(s): 74875611 ICD Code: F32.9 - MAJOR DEPRESSIVE DISORDER, SINGLE EPISODE, UNSPECIFIED Status: Chronic Priority: Low Current Visit: No Qualifiers: Depression Type: other depression Qualified Code(s): F32.89 - Other specified depressive episodes (13) Hypothyroidism SNOMED Code(s): 31199640 ICD Code: E03.9 - HYPOTHYROIDISM, UNSPECIFIED Status: Chronic Priority: Low Current Visit: No Qualifiers: Hypothyroidism type: unspecified Qualified Code(s): E03.9 - Hypothyroidism , unspecified (14) Back pain SNOMED Code(s): 385609933 ICD Code: M54.9 - DORSALGIA, UNSPECIFIED Status: Acute Priority: High Current Visit: Yes Qualifiers: Back pain location: back pain in unspecified location Chronicity: acute Back pain laterality: bilateral Qualified Code(s): M54.9 - Dorsalgia, unspecified (15) Bulging lumbar disc SNOMED Code(s): 597570470 ICD Code: M51.26 - OTHER INTERVERTEBRAL DISC DISPLACEMENT, LUMBAR REGION Status: Acute Priority: High Current Visit: Yes (16) Compression fracture of body of thoracic vertebra SNOMED Code(s): 728368203 ICD Code: S22.000A - WEDGE COMPRESSION FRACTURE OF UNSP THORACIC VERTEBRA, INIT Status: Acute Current Visit: No (17) Renal insufficiency SNOMED Code(s): 751661604, 944571797 ICD Code: N28.9 - DISORDER OF KIDNEY AND URETER, UNSPECIFIED Status: Acute Priority: High Current Visit: Yes (18) Vitamin D deficiency SNOMED Code(s): 51243873 ICD Code: E55.9 - VITAMIN D DEFICIENCY, UNSPECIFIED Status: Chronic Priority: Medium Current Visit: No (19) Hyperglycemia SNOMED Code(s): 17863172 ICD Code: R73.9 - HYPERGLYCEMIA, UNSPECIFIED Status: Chronic Priority: Low Current Visit: No (20) Hyponatremia SNOMED Code(s): 34972917 ICD Code: E87.1 - HYPO-OSMOLALITY AND HYPONATREMIA Status: Chronic Priority: Low Current Visit: No (21) Myelodysplastic syndrome SNOMED Code(s): 246042328 ICD Code: D46.9 - MYELODYSPLASTIC SYNDROME, UNSPECIFIED Status: Chronic Priority: Medium Current Visit: No (22) Macrocytic anemia SNOMED Code(s): 12258585 ICD Code: D53.9 - NUTRITIONAL ANEMIA, UNSPECIFIED Status: Chronic Priority: Medium Current Visit: No (23) Former smoker SNOMED Code(s): 7294393 ICD Code: Z87.891 - PERSONAL HISTORY OF NICOTINE DEPENDENCE Status: Chronic Priority: Low Current Visit: No (24) Generalized weakness SNOMED Code(s): 08172201 ICD Code: R53.1 - WEAKNESS Status: Acute Priority: High Current Visit: Yes Problem List Initiated/Reviewed/Updated: Yes Orders Last 24hrs: Active Orders 24 hr Category Date Time Status Patient Status [ADT] Routine ADT 01/10/20 11:17 Active Up With Assistance [RC] ASDIRECTED Care 01/10/20 10:34 Active OT Evaluation and Treatment [CONS] Routine Cons 01/09/20 20:31 Active PT Evaluation and Treatment [CONS] Routine Cons 01/09/20 20:30 Active Regular Diet [DIET] Diet 01/10/20 Breakfast Active Heparin Sodium Med 01/10/20 11:30 Active 5,000 units SUBCUT BID Lactated Ringers [Ringers, Lactated] 1,000 ml Med 01/10/20 11:00 Active IV ASDIRECTED Morphine Med 01/09/20 20:30 Active 1 mg IVPUSH Q4H PRN Sennosides [Senna] Med 01/10/20 21:00 Active 8.6 mg PO BID Sodium Chloride 0.9% [Saline Flush] Med 01/09/20 17:33 Active 10 ml FLUSH ASDIRECTED PRN methylPREDNISolone Sod Succ [Solu-MEDROL] Med 01/10/20 07:00 Active 40 mg IVPUSH Q8H traMADol [Ultram] Med 01/10/20 11:22 Active 50 - 100 mg PO BID PRN Heat Therapy [OM.PC] Routine Oth 01/10/20 09:01 Ordered Peripheral IV Insertion Adult [OM.PC] Stat Oth 01/09/20 17:33 Ordered Code Status [Resuscitation Status] Routine Resus Stat 01/09/20 22:10 Ordered Medication Orders Heparin Sodium (Porcine) (Heparin Sodium) 5,000 units SUBCUT BID AYLA Last Admin: 01/10/20 11:36 Dose: 5,000 units Lactated Ringer's (Ringers, Lactated) 1,000 mls @ 30 mls/hr IV ASDIRECTED [facility] Last Admin: 01/10/20 11:37 Dose: 30 mls/hr Methylprednisolone Sodium Succinate (Solu-Medrol) 40 mg IVPUSH Q8H [facility] Last Admin: 01/10/20 07:53 Dose: 40 mg Morphine Sulfate (Morphine) 1 mg IVPUSH Q4H PRN PRN Reason: Pain Senna (Senna) 8.6 mg PO BID [facility] Sodium Chloride (Saline Flush) 10 ml FLUSH ASDIRECTED PRN PRN Reason: Keep Vein Open Last Admin: 01/09/20 19:18 Dose: 10 ml Tramadol HCl (Ultram) 50 - 100 mg PO BID PRN PRN Reason: PAIN Last Admin: 01/10/20 11:35 Dose: 50 mg Assessment/Plan Comment:: Back pain Bulging lumbar disc Compression fracture of body of thoracic vertebra Osteopenia Osteoporosis Former smoker Rheumatoid arthritis Resides at [facility] Reports weakness and unable to feed self for past few days History of compression fractures Diffuse endplate concavities throughout lumbar spine Circumferential disk bulging, most severe at L4-L5 causing moderate central canal stenosis Moderate right-sided neural foraminal stenosis noted at L4-L5. Other degenerative change noted. No acute lumbar or thoracic spine fractures. No subluxation noted. Multiple thoracic spine compression deformities. 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 Mild scattered areas of neural foraminal stenosis noted on both sides throughout thoracic spine On home tramadol and Zanaflex PLAN - Resume home tramadol - Clinoril given x2 - patient reports no improvement of symptoms - discontinue - PT/OT - Heat therapy - Ambulate with assistance - Work on establishing pain control - Hold Zanaflex for now Depression Vitamin D deficiency Generalized weakness Hypothyroidism Resides at [facility] Reports worsening weakness - unable to ambulate without staff assistance Reports unable to feed herself On home B12 supplementation On home levothyroxine PLAN - Obtain TSH - Obtain Vitamin D level - Obtain B12 and folate level - Hold B12 for now - PT/OT - CM/SW for likely placement - Truckman consult - Continue home levothyroxine HTN (hypertension) First degree AV block On home Cozaar and nitroglycerine PLAN - Resume Cozaar - Hold nitro Renal insufficiency Hyponatremia BUN 52 Creatinine 1.6 GFR 31 Unknown baseline GFR - last visit was 2014 Sodium stable On home lasix PLAN - Jan IV fluids - Monitor - Avoid nephrotoxic meds if able - Hold home lasix for now Myelodysplastic syndrome Macrocytic anemia Patient follows Dr. Bassett Reportedly sees oncology every 2 weeks, blood is drawn and need for transfusion is weighed Receives blood transfusion when Hgb is below 8 Reportedly has multiple antibodies Hgb 9.6 PLAN - Monitor Hgb - Transfuse if necessary Glaucoma Stable PLAN - Monitor COPD (chronic obstructive pulmonary disease) Emphysema of lung Stable Denies any respiratory symptoms No home respiratory meds PLAN - Monitor for symptoms History of CVA (cerebrovascular accident) History of TIA (transient ischemic attack) Cerebrovascular disease No acute symptoms PLAN - Monitor Hyperglycemia, Unknown Hgb A1C Reportedly being monitored by PCP Glucose 111 on admission PLAN - Obtain A1C - Monitor PROPHYLAXIS DVT- Heparin BID GI- not indicated CODE STATUS: DNR/DNI PCP: Dr. Beckford DISPOSITION: Admitted to medical floor for management of acute on chronic back pain, generalized weakness and renal injury. Resides at [place] - will likely require placement CM/SW working on discharge plan - Mortality Measure Prognosis:: Poor
[2020-01-10] MEDS ORDERED: Carboxymethylcellulose Sodium 1% Ophth Gel 15 ML Bottle EYEBOTH PRN (12:11)
[2020-01-10] MEDS ORDERED: LACTOSE REDUCED FOOD PO SCH (21:00)
[2020-01-10] MEDS: Sennosides 8.6 MG Tab PO SCH (22:06)
[2020-01-11] MEDS: traMADol 50 MG Tab PO PRN ×2 (04:21→11:15)
[2020-01-11] MEDS: methylPREDNISolone Sodium Succinate 40 MG/1 ML SDV IVPUSH SCH ×3 (06:07→22:10)
[2020-01-11 07:18] LABS: HEMOGLOBIN A1C 7.2 % (4.50-6.20)
[2020-01-11 07:28] LABS: VITAMIN D,25-HYDROXY 41.4 ng/ml (30.0-100.0)
[2020-01-11] MEDS: Tamsulosin 0.4 MG Cap.ER PO SCH (08:43)
[2020-01-11] MEDS: Sennosides 8.6 MG Tab PO SCH ×2 (08:43→22:10)
[2020-01-11] MEDS: Heparin Sodium 5,000 Units/ML Vial SUBCUT SCH ×2 (08:44→22:10)
[2020-01-11] MEDS ORDERED: Levothyroxine 88 MCG Tab PO SCH (09:00)
[2020-01-11] MEDS ORDERED: Deferasirox [Jadenu] 360 MG PO SCH ×2 (09:00→17:24)
[2020-01-11] MEDS ORDERED: Losartan 25 MG Tab PO SCH (09:00)
[2020-01-11] MEDS ORDERED: Simethicone 80 MG Tab.Chew PO PRN (09:05)
[2020-01-11] MEDS ORDERED: Diclofenac Sodium 1% Gel 100 GM Tube TOP PRN (11:41)
[2020-01-11] MEDS: Lactated Ringers 1,000 ML IV SCH (12:23)
--- NOTE | 2020-01-11 14:39 | PCM.PN ---
- General Info Date of Service: 01/11/20 Admission Dx/Problem (Free Text): Admission Diagnosis/Problem Admission Diagnosis/Problem Fracture of thoracic spine Subjective Update: Patient sleeping well today Reports pain is worse and tramadol not working well BM Yesterday Eating pretty well Feels bloated - Patient Data Vitals - Most Recent: Last Vital Signs Temp 97.9 F 01/11/20 08:23 Pulse 87 01/11/20 08:23 Resp 16 01/11/20 08:23 BP 126/65 01/11/20 09:58 Pulse Ox 97 01/11/20 08:23 Weight - Most Recent: 90 lb 1.6 oz I&O - Last 24 Hours: Intake & Output 01/10/20 01/11/20 01/11/20 22:59 06:59 14:59 Intake Total 485 608 420 Output Total 650 Balance 485 -42 420 Lab Results Last 24 Hours: Laboratory Results - last 24 hr 01/11/20 01/11/20 01/11/20 Range/Units 05:40 05:40 05:40 WBC 2.22 L* (3.98-10.04) K/mm3 RBC 2.93 L (3.98-5.22) M/mm3 Hgb 8.1 L D (11.2-15.7) gm/dl Hct 26.9 L (34.1-44.9) % MCV 91.8 (79.4-94.8) fl MCH 27.6 (25.6-32.2) pg MCHC 30.1 L (32.2-35.5) g/dl RDW Std Deviation 63.0 H (36.4-46.3) fL Plt Count 193 (182-369) K/mm3 MPV 10.6 (9.4-12.3) fl Neut % (Auto) 63.9 (34.0-71.1) % Lymph % (Auto) 26.6 (19.3-51.7) % Real % (Auto) 9.5 (4.7-12.5) % Eos % (Auto) 0 L (0.7-5.8) Baso % (Auto) 0.0 L (0.1-1.2) % Neut # (Auto) 1.42 L (1.56-6.13) K/mm3 Lymph # (Auto) 0.59 L (1.18-3.74) K/mm3 Real # (Auto) 0.21 L (0.24-0.36) K/mm3 Eos # (Auto) 0.00 L (0.04-0.36) K/mm3 Baso # (Auto) 0.00 L (0.01-0.08) K/mm3 Manual Slide Review Abnormal smear Sodium 135 L (136-145) mEq/L Potassium 5.2 H (3.5-5.1) mEq/L Chloride 101 (98-107) mEq/L Carbon Dioxide 26 (21-32) mEq/L Anion Gap 13.2 (5-15) BUN 70 H (7-18) mg/dL Creatinine 1.8 H (0.55-1.02) mg/dL Est Cr Clr Drug Dosing 15.81 mL/min Estimated GFR (MDRD) 27 (>60) mL/min BUN/Creatinine Ratio 38.9 H (14-18) Glucose 159 H (83-115) mg/dL Hemoglobin A1c (4.50-6.20) % Calcium 8.2 L (8.5-10.1) mg/dL Phosphorus 3.7 (2.6-4.7) mg/dL Magnesium 2.2 (1.8-2.4) mg/dl Vitamin B12 1915 H (193-986) pg/ml Vitamin D 25-Hydroxy 41.4 (30.0-100.0) ng/ml Free T4 (0.76-1.46) ng/dL TSH 3rd Generation 0.176 L (0.358-3.74) uIU/mL 01/11/20 01/11/20 01/11/20 Range/Units 05:40 05:40 08:40 WBC 2.95 L (3.98-10.04) K/mm3 RBC 3.19 L (3.98-5.22) M/mm3 Hgb 9.0 L (11.2-15.7) gm/dl Hct 29.2 L (34.1-44.9) % MCV 91.5 (79.4-94.8) fl MCH 28.2 (25.6-32.2) pg MCHC 30.8 L (32.2-35.5) g/dl RDW Std Deviation 65.0 H (36.4-46.3) fL Plt Count 224 (182-369) K/mm3 MPV 10.3 (9.4-12.3) fl Neut % (Auto) (34.0-71.1) % Lymph % (Auto) (19.3-51.7) % Real % (Auto) (4.7-12.5) % Eos % (Auto) (0.7-5.8) Baso % (Auto) (0.1-1.2) % Neut # (Auto) (1.56-6.13) K/mm3 Lymph # (Auto) (1.18-3.74) K/mm3 Real # (Auto) (0.24-0.36) K/mm3 Eos # (Auto) (0.04-0.36) K/mm3 Baso # (Auto) (0.01-0.08) K/mm3 Manual Slide Review Sodium (136-145) mEq/L Potassium (3.5-5.1) mEq/L Chloride (98-107) mEq/L Carbon Dioxide (21-32) mEq/L Anion Gap (5-15) BUN (7-18) mg/dL Creatinine (0.55-1.02) mg/dL Est Cr Clr Drug Dosing mL/min Estimated GFR (MDRD) (>60) mL/min BUN/Creatinine Ratio (14-18) Glucose (83-115) mg/dL Hemoglobin A1c 7.20 H (4.50-6.20) % Calcium (8.5-10.1) mg/dL Phosphorus (2.6-4.7) mg/dL Magnesium (1.8-2.4) mg/dl Vitamin B12 (193-986) pg/ml Vitamin D 25-Hydroxy (30.0-100.0) ng/ml Free T4 0.79 (0.76-1.46) ng/dL TSH 3rd Generation 0.162 L (0.358-3.74) uIU/mL 01/11/20 Range/Units 08:40 WBC (3.98-10.04) K/mm3 RBC (3.98-5.22) M/mm3 Hgb (11.2-15.7) gm/dl Hct (34.1-44.9) % MCV (79.4-94.8) fl MCH (25.6-32.2) pg MCHC (32.2-35.5) g/dl RDW Std Deviation (36.4-46.3) fL Plt Count (182-369) K/mm3 MPV (9.4-12.3) fl Neut % (Auto) (34.0-71.1) % Lymph % (Auto) (19.3-51.7) % Real % (Auto) (4.7-12.5) % Eos % (Auto) (0.7-5.8) Baso % (Auto) (0.1-1.2) % Neut # (Auto) (1.56-6.13) K/mm3 Lymph # (Auto) (1.18-3.74) K/mm3 Real # (Auto) (0.24-0.36) K/mm3 Eos # (Auto) (0.04-0.36) K/mm3 Baso # (Auto) (0.01-0.08) K/mm3 Manual Slide Review Sodium 134 L (136-145) mEq/L Potassium 4.9 (3.5-5.1) mEq/L Chloride 100 (98-107) mEq/L Carbon Dioxide 25 (21-32) mEq/L Anion Gap 13.9 (5-15) BUN 68 H (7-18) mg/dL Creatinine 1.9 H (0.55-1.02) mg/dL Est Cr Clr Drug Dosing 14.98 mL/min Estimated GFR (MDRD) 25 (>60) mL/min BUN/Creatinine Ratio 35.8 H (14-18) Glucose 295 H (83-115) mg/dL Hemoglobin A1c (4.50-6.20) % Calcium 8.3 L (8.5-10.1) mg/dL Phosphorus (2.6-4.7) mg/dL Magnesium (1.8-2.4) mg/dl Vitamin B12 (193-986) pg/ml Vitamin D 25-Hydroxy (30.0-100.0) ng/ml Free T4 (0.76-1.46) ng/dL TSH 3rd Generation (0.358-3.74) uIU/mL Med Orders - Current: Current Medications Acetaminophen (Tylenol) 650 mg PO Q6H PRN PRN Reason: PAIN Artificial Tears (Refresh Liquigel 1%) 1 ml EYEBOTH DAILY PRN PRN Reason: Dry Eyes Diclofenac Sodium (Voltaren 1% Gel) 0 gm TOP TID PRN PRN Reason: BACK/SIDE PAIN Last Admin: 01/11/20 12:23 Dose: 1 applic Heparin Sodium (Porcine) (Heparin Sodium) 5,000 units SUBCUT BID [facility] Last Admin: 01/11/20 08:44 Dose: 5,000 units Lactated Ringer's (Ringers, Lactated) 1,000 mls @ 30 mls/hr IV ASDIRECTED [facility] Last Admin: 01/11/20 12:23 Dose: 30 mls/hr Levothyroxine Sodium (Synthroid) 88 mcg PO DAILY [facility] Last Admin: 01/11/20 08:44 Dose: 88 mcg Losartan Potassium (Cozaar) 25 mg PO DAILY [facility] Last Admin: 01/11/20 08:43 Dose: 25 mg Methylprednisolone Sodium Succinate (Solu-Medrol) 40 mg IVPUSH Q8H [facility] Last Admin: 01/11/20 06:07 Dose: 40 mg Morphine Sulfate (Morphine) 1 mg IVPUSH Q4H PRN PRN Reason: Pain Deferasirox [Jadenu] (360 Mg) 0 each PO DAILY [facility] Last Admin: 01/11/20 08:45 Dose: Not Given Senna (Senna) 8.6 mg PO BID [facility] Last Admin: 01/11/20 08:43 Dose: 8.6 mg Simethicone (Simethicone) 80 mg PO Q6H PRN PRN Reason: bloating Last Admin: 01/11/20 12:21 Dose: 80 mg Sodium Chloride (Saline Flush) 10 ml FLUSH ASDIRECTED PRN PRN Reason: Keep Vein Open Last Admin: 01/09/20 19:18 Dose: 10 ml Tamsulosin HCl (Flomax) 0.4 mg PO DAILY [facility] Last Admin: 01/11/20 08:43 Dose: 0.4 mg Tramadol HCl (Ultram) 100 mg PO BID [facility] Discontinued Medications Sodium Chloride (Normal Saline) 1,000 mls @ 125 mls/hr IV ASDIRECTED [facility] Last Admin: 01/09/20 17:59 Dose: 125 mls/hr Methylprednisolone Sodium Succinate (Solu-Medrol) 40 mg IVPUSH Q8H [facility] Last Admin: 01/09/20 22:53 Dose: 40 mg Non-Formulary Medication (Lactose-Reduced Food [Ensure]) 4 oz PO BID [facility] Sulindac (Clinoril) 150 mg PO BIDMEALS [facility] Last Admin: 01/10/20 07:53 Dose: 150 mg Sulindac (Clinoril) 150 mg PO ONETIME ONE Stop: 01/09/20 23:01 Last Admin: 01/09/20 22:52 Dose: 150 mg Tramadol HCl (Ultram) 50 mg PO ONETIME ONE Stop: 01/09/20 19:08 Last Admin: 01/09/20 19:16 Dose: 50 mg Tramadol HCl (Ultram) 50 - 100 mg PO BID PRN PRN Reason: PAIN Last Admin: 01/11/20 11:15 Dose: 50 mg - Exam Quality Assessment: DVT Prophylaxis General: Alert, Oriented, Cooperative, Mild Distress (Reports pain not well controlled. Looks uncomfortable ), Severe Distress HEENT: Pupils Equal, Pupils Reactive Neck: Supple, Trachea Midline Lungs: Clear to Auscultation, Normal Respiratory Effort Cardiovascular: Regular Rate, Regular Rhythm GI/Abdominal Exam: Normal Bowel Sounds, Soft, Non-Tender, No Distention (Female) Exam: Deferred Extremities: Normal Inspection, Normal Range of Motion, Non-Tender, No Pedal Edema, Normal Capillary Refill Skin: Warm, Dry, Intact Neurological: No New Focal Deficit Psy/Mental Status: Alert, Normal Affect, Normal Mood Sepsis Event Note - Evaluation Sepsis Screening Result: No Definite Risk - Focused Exam Vital Signs: Vital Signs Temp Pulse Resp BP Pulse Ox 01/11/20 09:58 126/65 01/11/20 08:43 174/65 H 01/11/20 08:25 174/65 H 01/11/20 08:23 97.9 F 87 16 97 Date Exam was Performed: 01/11/20 Time Exam was Performed: 14:40 - Problem List & Annotations (1) First degree AV block SNOMED Code(s): 445661666 Code(s): I44.0 - ATRIOVENTRICULAR BLOCK, FIRST DEGREE Status: Chronic Priority: Low Current Visit: No (2) Glaucoma SNOMED Code(s): 46587373 Code(s): H40.9 - UNSPECIFIED GLAUCOMA Status: Chronic Priority: Low Current Visit: No Qualifiers: Glaucoma type: unspecified (3) HTN (hypertension) SNOMED Code(s): 59347605 Code(s): I10 - ESSENTIAL (PRIMARY) HYPERTENSION Status: Chronic Priority : Medium Current Visit: No Qualifiers: Hypertension type: unspecified Qualified Code(s): I10 - Essential (primary ) hypertension (4) COPD (chronic obstructive pulmonary disease) SNOMED Code(s): 32242678 Code(s): J44.9 - CHRONIC OBSTRUCTIVE PULMONARY DISEASE, UNSPECIFIED Status : Chronic Priority: Low Current Visit: No Qualifiers: COPD type: unspecified COPD Qualified Code(s): J44.9 - Chronic obstructive pulmonary disease, unspecified (5) Emphysema of lung SNOMED Code(s): 88259085 Code(s): J43.9 - EMPHYSEMA, UNSPECIFIED Status: Chronic Priority: Low Current Visit: No Qualifiers: Emphysema type: unspecified Qualified Code(s): J43.9 - Emphysema, unspecified (6) Osteoporosis SNOMED Code(s): 13053941 Code(s): M81.0 - AGE-RELATED OSTEOPOROSIS W/O CURRENT PATHOLOGICAL FRACTURE Status: Chronic Priority: Medium Current Visit: Yes Qualifiers: Osteoporosis type: unspecified Presence of current pathological fracture: unspecified Qualified Code(s): M81.0 - Age-related osteoporosis without current pathological fracture (7) Rheumatoid arthritis SNOMED Code(s): 42579590 Code(s): M06.9 - RHEUMATOID ARTHRITIS, UNSPECIFIED Status: Chronic Priority: Low Current Visit: No Qualifiers: Rheumatoid arthritis location: unspecified site Rheumatoid factor presence : unspecified presence Qualified Code(s): M06.9 - Rheumatoid arthritis, unspecified (8) Osteopenia SNOMED Code(s): 345981139 Code(s): M85.80 - OTH DISRD OF BONE DENSITY AND STRUCTURE, UNSPECIFIED SITE Status: Chronic Priority: Medium Current Visit: Yes Qualifiers: Osteopenia location: unspecified Qualified Code(s): M85.80 - Other specified disorders of bone density and structure, unspecified site (9) History of CVA (cerebrovascular accident) SNOMED Code(s): 646512413 Code(s): Z86.73 - PRSNL HX OF TIA (TIA), AND CEREB INFRC W/O RESID DEFICITS Status: Chronic Priority: Low Current Visit: No (10) History of TIA (transient ischemic attack) SNOMED Code(s): 824834386 Code(s): Z86.73 - PRSNL HX OF TIA (TIA), AND CEREB INFRC W/O RESID DEFICITS Status: Chronic Priority: Low Current Visit: No (11) Cerebrovascular disease SNOMED Code(s): 91778498 Code(s): I67.9 - CEREBROVASCULAR DISEASE, UNSPECIFIED Status: Chronic Priority: Low Current Visit: No (12) Depression SNOMED Code(s): 25698133 Code(s): F32.9 - MAJOR DEPRESSIVE DISORDER, SINGLE EPISODE, UNSPECIFIED Status: Chronic Priority: Low Current Visit: No Qualifiers: Depression Type: other depression Qualified Code(s): F32.89 - Other specified depressive episodes (13) Hypothyroidism SNOMED Code(s): 99055163 Code(s): E03.9 - HYPOTHYROIDISM, UNSPECIFIED Status: Chronic Priority: Low Current Visit: No Qualifiers: Hypothyroidism type: unspecified Qualified Code(s): E03.9 - Hypothyroidism , unspecified (14) Back pain SNOMED Code(s): 068168357 Code(s): M54.9 - DORSALGIA, UNSPECIFIED Status: Acute Priority: High Current Visit: Yes Qualifiers: Back pain location: back pain in unspecified location Chronicity: acute Back pain laterality: bilateral Qualified Code(s): M54.9 - Dorsalgia, unspecified (15) Bulging lumbar disc SNOMED Code(s): 441572303 Code(s): M51.26 - OTHER INTERVERTEBRAL DISC DISPLACEMENT, LUMBAR REGION Status: Acute Priority: High Current Visit: Yes (16) Compression fracture of body of thoracic vertebra SNOMED Code(s): 620742374 Code(s): S22.000A - WEDGE COMPRESSION FRACTURE OF UNSP THORACIC VERTEBRA, INIT Status: Acute Current Visit: No (17) Renal insufficiency SNOMED Code(s): 609669262, 069665010 Code(s): N28.9 - DISORDER OF KIDNEY AND URETER, UNSPECIFIED Status: Acute Priority: High Current Visit: Yes (18) Vitamin D deficiency SNOMED Code(s): 77593488 Code(s): E55.9 - VITAMIN D DEFICIENCY, UNSPECIFIED Status: Chronic Priority: Medium Current Visit: No (19) Hyperglycemia SNOMED Code(s): 48160728 Code(s): R73.9 - HYPERGLYCEMIA, UNSPECIFIED Status: Chronic Priority: Low Current Visit: No (20) Hyponatremia SNOMED Code(s): 47107723 Code(s): E87.1 - HYPO-OSMOLALITY AND HYPONATREMIA Status: Chronic Priority: Low Current Visit: No (21) Myelodysplastic syndrome SNOMED Code(s): 116148294 Code(s): D46.9 - MYELODYSPLASTIC SYNDROME, UNSPECIFIED Status: Chronic Priority: Medium Current Visit: No (22) Macrocytic anemia SNOMED Code(s): 34995026 Code(s): D53.9 - NUTRITIONAL ANEMIA, UNSPECIFIED Status: Chronic Priority : Medium Current Visit: No (23) Former smoker SNOMED Code(s): 1720459 Code(s): Z87.891 - PERSONAL HISTORY OF NICOTINE DEPENDENCE Status: Chronic Priority: Low Current Visit: No (24) Generalized weakness SNOMED Code(s): 36656834 Code(s): R53.1 - WEAKNESS Status: Acute Priority: High Current Visit: Yes - Problem List Review Problem List Initiated/Reviewed/Updated: Yes - My Orders Last 24 Hours: My Active Orders 01/10/20 15:41 Consult to Corporate Communications Intern [CONS] Routine 01/10/20 18:52 IS (RT) [RT Incentive Spirometry] [RC] ASDIRECTED 01/11/20 05:40 FOLATE, RBC [REF] Routine 01/11/20 09:00 Levothyroxine [Synthroid] 88 mcg PO DAILY Losartan [Cozaar] 25 mg PO DAILY Patient's Own Medication [Ptom] 0 each PO DAILY Tamsulosin [Flomax] 0.4 mg PO DAILY 01/11/20 09:05 Simethicone 80 mg PO Q6H PRN - Plan Plan:: Back pain Bulging lumbar disc Compression fracture of body of thoracic vertebra Osteopenia Osteoporosis Former smoker Rheumatoid arthritis Resides at [facility] Reports weakness and unable to feed self for past few days History of compression fractures Diffuse endplate concavities throughout lumbar spine Circumferential disk bulging, most severe at L4-L5 causing moderate central canal stenosis Moderate right-sided neural foraminal stenosis noted at L4-L5. Other degenerative change noted. No acute lumbar or thoracic spine fractures. No subluxation noted. Multiple thoracic spine compression deformities. 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 Mild scattered areas of neural foraminal stenosis noted on both sides throughout thoracic spine On home tramadol and Zanaflex PLAN - Continue tramadol - Clinoril given x2 - patient reports no improvement of symptoms - discontinue - PT/OT - Heat therapy - Ambulate with assistance - Work on establishing pain control - Hold Zanaflex - Start Voltaren gel - Morphine for breakthrough pain Depression Vitamin D deficiency Generalized weakness Hypothyroidism Resides at [facility] Reports worsening weakness - unable to ambulate without staff assistance Reports unable to feed herself On home B12 supplementation On home levothyroxine Elevated TSH and B12 PLAN - Hold levothyroxine - Obtain Vitamin D level - Obtain TSH and T4 - Hold B12 for now - PT/OT - CM/SW for likely placement - Corporate Communications Intern consult HTN (hypertension) First degree AV block On home Cozaar and nitroglycerine PLAN - Resume Cozaar - Hold nitro Renal insufficiency Hyponatremia BUN 52-->70-->68 Creatinine 1.6-->1.8-->1.9 GFR 31-->27-->25 Unknown baseline GFR - last visit was 2014 Sodium stable On home lasix PLAN - Jan IV fluids - Switch to NS due to worsening hyponatremia - Monitor - Avoid nephrotoxic meds if able - Hold home lasix for now - Obtain random urine creatine, sodium, protein - Calculate FENa once labs back Myelodysplastic syndrome Macrocytic anemia Patient follows Dr. Bassett Reportedly sees oncology every 2 weeks, blood is drawn and need for transfusion is weighed Receives blood transfusion when Hgb is below 8 Reportedly has multiple antibodies Hgb 9.6-->8.1-->9.0 PLAN - Monitor Hgb - Transfuse if necessary Glaucoma Stable PLAN - Monitor COPD (chronic obstructive pulmonary disease) Emphysema of lung Stable Denies any respiratory symptoms No home respiratory meds PLAN - Monitor for symptoms History of CVA (cerebrovascular accident) History of TIA (transient ischemic attack) Cerebrovascular disease No acute symptoms PLAN - Monitor Hyperglycemia, Hgb A1C 7.2% Reportedly being monitored by PCP Glucose 111 on admission PLAN - Goal A1C for age is below 8% - Monitor PROPHYLAXIS DVT- Heparin BID GI- not indicated CODE STATUS: DNR/DNI PCP: Dr. Beckford DISPOSITION: Admitted to medical floor for management of acute on chronic back pain, generalized weakness and renal injury. Resides at [facility] - will likely require placement CM/SW working on discharge plan
[2020-01-11] MEDS: Sodium Chloride 0.9% 1,000 ML IV SCH (16:14)
[2020-01-11] MEDS: Acetaminophen 325 MG Tab PO PRN (16:15)
[2020-01-11] MEDS ORDERED: Magnesium Hydroxide 400 MG/5 ML Susp 30 ML Cup PO ONE (16:50)
[2020-01-11] MEDS: traMADol 50 MG Tab PO SCH (22:11)
[2020-01-12] MEDS: Acetaminophen 325 MG Tab PO PRN (02:29)
[2020-01-12] MEDS: methylPREDNISolone Sodium Succinate 40 MG/1 ML SDV IVPUSH SCH (06:34)
[2020-01-12] MEDS: Sodium Chloride 0.9% 1,000 ML IV SCH (06:34)
[2020-01-12] MEDS: traMADol 50 MG Tab PO SCH ×2 (08:44→20:28)
[2020-01-12] MEDS: Sennosides 8.6 MG Tab PO SCH ×2 (08:44→20:28)
[2020-01-12] MEDS: Heparin Sodium 5,000 Units/ML Vial SUBCUT SCH ×2 (08:45→20:27)
[2020-01-12] MEDS: Tamsulosin 0.4 MG Cap.ER PO SCH (08:45)
--- NOTE | 2020-01-12 12:02 | PCM.PN ---
- General Info Date of Service: 01/12/20 Admission Dx/Problem (Free Text): Admission Diagnosis/Problem Admission Diagnosis/Problem Fracture of thoracic spine Subjective Update: Sleeping okay. Pain continues up to 8 out of 10. Pain is mainly in the right side this morning. She is ambulating in the wang. Functional Status: Reports: Pain Controlled - Review of Systems General: Reports: No Symptoms HEENT: Reports: No Symptoms Pulmonary: Reports: No Symptoms Cardiovascular: Reports: No Symptoms Gastrointestinal: Reports: No Symptoms Musculoskeletal: Reports: No Symptoms Neurological: Reports: No Symptoms Psychiatric: Reports: No Symptoms - Patient Data Vitals - Most Recent: Last Vital Signs Temp 97.9 F 01/12/20 02:25 Pulse 91 01/12/20 02:25 Resp 18 01/12/20 02:25 BP 173/79 H 01/12/20 02:25 Pulse Ox 93 L 01/12/20 02:25 Weight - Most Recent: 94 lb 1.6 oz I&O - Last 24 Hours: Intake & Output 01/11/20 01/12/20 01/12/20 22:59 06:59 14:59 Intake Total 979 1033 240 Output Total 700 700 Balance 279 333 240 Lab Results Last 24 Hours: Laboratory Results - last 24 hr 01/11/20 01/11/20 01/12/20 Range/Units 05:40 15:27 05:15 WBC 3.71 L (3.98-10.04) K/mm3 RBC 2.82 L (3.98-5.22) M/mm3 Hgb 8.0 L (11.2-15.7) gm/dl Hct 26.4 L (34.1-44.9) % MCV 93.6 (79.4-94.8) fl MCH 28.4 (25.6-32.2) pg MCHC 30.3 L (32.2-35.5) g/dl RDW Std Deviation 64.9 H (36.4-46.3) fL Plt Count 226 (182-369) K/mm3 MPV 10.9 (9.4-12.3) fl Neut % (Auto) 81.3 H (34.0-71.1) % Lymph % (Auto) 13.5 L (19.3-51.7) % [place] % (Auto) 4.9 (4.7-12.5) % Eos % (Auto) 0 L (0.7-5.8) Baso % (Auto) 0.0 L (0.1-1.2) % Neut # (Auto) 3.02 (1.56-6.13) K/mm3 Lymph # (Auto) 0.50 L (1.18-3.74) K/mm3 [place] # (Auto) 0.18 L (0.24-0.36) K/mm3 Eos # (Auto) 0.00 L (0.04-0.36) K/mm3 Baso # (Auto) 0.00 L (0.01-0.08) K/mm3 Sodium (136-145) mEq/L Potassium (3.5-5.1) mEq/L Chloride (98-107) mEq/L Carbon Dioxide (21-32) mEq/L Anion Gap (5-15) BUN (7-18) mg/dL Creatinine (0.55-1.02) mg/dL Est Cr Clr Drug Dosing mL/min Estimated GFR (MDRD) (>60) mL/min BUN/Creatinine Ratio (14-18) Glucose (83-115) mg/dL Calcium (8.5-10.1) mg/dL Magnesium (1.8-2.4) mg/dl Free T4 0.79 (0.76-1.46) ng/dL TSH 3rd Generation 0.162 L (0.358-3.74) uIU/mL Ur Random Creatinine 42.7 (30.0-125.0) mg/dL U Random Total Protein 17.2 H (0.0-11.8) mg/dL Ur Random Sodium 48 (40-220) mEq/L 01/12/20 01/12/20 Range/Units 05:15 07:25 WBC (3.98-10.04) K/mm3 RBC (3.98-5.22) M/mm3 Hgb (11.2-15.7) gm/dl Hct (34.1-44.9) % MCV (79.4-94.8) fl MCH (25.6-32.2) pg MCHC (32.2-35.5) g/dl RDW Std Deviation (36.4-46.3) fL Plt Count (182-369) K/mm3 MPV (9.4-12.3) fl Neut % (Auto) (34.0-71.1) % Lymph % (Auto) (19.3-51.7) % [place] % (Auto) (4.7-12.5) % Eos % (Auto) (0.7-5.8) Baso % (Auto) (0.1-1.2) % Neut # (Auto) (1.56-6.13) K/mm3 Lymph # (Auto) (1.18-3.74) K/mm3 [place] # (Auto) (0.24-0.36) K/mm3 Eos # (Auto) (0.04-0.36) K/mm3 Baso # (Auto) (0.01-0.08) K/mm3 Sodium 138 (136-145) mEq/L Potassium 6.2 H* 5.5 H (3.5-5.1) mEq/L Chloride 105 (98-107) mEq/L Carbon Dioxide 27 (21-32) mEq/L Anion Gap 12.2 (5-15) BUN 68 H (7-18) mg/dL Creatinine 1.9 H (0.55-1.02) mg/dL Est Cr Clr Drug Dosing 15.65 mL/min Estimated GFR (MDRD) 25 (>60) mL/min BUN/Creatinine Ratio 35.8 H (14-18) Glucose 163 H (83-115) mg/dL Calcium 8.2 L (8.5-10.1) mg/dL Magnesium 2.4 (1.8-2.4) mg/dl Free T4 (0.76-1.46) ng/dL TSH 3rd Generation (0.358-3.74) uIU/mL Ur Random Creatinine (30.0-125.0) mg/dL U Random Total Protein (0.0-11.8) mg/dL Ur Random Sodium (40-220) mEq/L Med Orders - Current: Current Medications Acetaminophen (Tylenol) 650 mg PO Q6H PRN PRN Reason: PAIN Last Admin: 01/12/20 02:29 Dose: 650 mg Artificial Tears (Refresh Liquigel 1%) 1 ml EYEBOTH DAILY PRN PRN Reason: Dry Eyes Diclofenac Sodium (Voltaren 1% Gel) 0 gm TOP TID PRN PRN Reason: BACK/SIDE PAIN Last Admin: 01/11/20 12:23 Dose: 1 applic Heparin Sodium (Porcine) (Heparin Sodium) 5,000 units SUBCUT BID [facility] Last Admin: 01/12/20 08:45 Dose: 5,000 units Sodium Chloride (Normal Saline) 1,000 mls @ 75 mls/hr IV ASDIRECTED [facility] Last Admin: 01/12/20 06:34 Dose: 75 mls/hr Methylprednisolone Sodium Succinate (Solu-Medrol) 40 mg IVPUSH Q8H [facility] Last Admin: 01/12/20 06:34 Dose: 40 mg Morphine Sulfate (Morphine) 1 mg IVPUSH Q4H PRN PRN Reason: Pain Deferasirox [Jadenu] (360 Mg) 0 each PO BEDTIME [facility] Senna (Senna) 8.6 mg PO BID [facility] Last Admin: 01/12/20 08:44 Dose: 8.6 mg Simethicone (Simethicone) 80 mg PO Q6H PRN PRN Reason: bloating Last Admin: 01/11/20 12:21 Dose: 80 mg Sodium Chloride (Saline Flush) 10 ml FLUSH ASDIRECTED PRN PRN Reason: Keep Vein Open Last Admin: 01/09/20 19:18 Dose: 10 ml Tamsulosin HCl (Flomax) 0.4 mg PO DAILY [facility] Last Admin: 01/12/20 08:45 Dose: 0.4 mg Tramadol HCl (Ultram) 100 mg PO BID [facility] Last Admin: 01/12/20 08:44 Dose: 100 mg Discontinued Medications Sodium Chloride (Normal Saline) 1,000 mls @ 125 mls/hr IV ASDIRECTED [facility] Last Admin: 01/09/20 17:59 Dose: 125 mls/hr Lactated Ringer's (Ringers, Lactated) 1,000 mls @ 30 mls/hr IV ASDIRECTED [facility] Last Admin: 01/11/20 12:23 Dose: 30 mls/hr Levothyroxine Sodium (Synthroid) 88 mcg PO DAILY [facility] Last Admin: 01/11/20 08:44 Dose: 88 mcg Losartan Potassium (Cozaar) 25 mg PO DAILY [facility] Last Admin: 01/11/20 08:43 Dose: 25 mg Magnesium Hydroxide (Milk Of Magnesia) 30 ml PO ONETIME ONE Stop: 01/11/20 16:51 Last Admin: 01/11/20 17:31 Dose: 30 ml Methylprednisolone Sodium Succinate (Solu-Medrol) 40 mg IVPUSH Q8H [facility] Last Admin: 01/09/20 22:53 Dose: 40 mg Non-Formulary Medication (Lactose-Reduced Food [Ensure]) 4 oz PO BID [facility] Deferasirox [Jadenu] (360 Mg) 0 each PO DAILY [facility] Last Admin: 01/11/20 08:45 Dose: Not Given Deferasirox [Jadenu] (360 Mg) 0 each PO DAILY [facility] Last Admin: 01/12/20 08:46 Dose: 1 each Sulindac (Clinoril) 150 mg PO BIDMEALS [facility] Last Admin: 01/10/20 07:53 Dose: 150 mg Sulindac (Clinoril) 150 mg PO ONETIME ONE Stop: 01/09/20 23:01 Last Admin: 01/09/20 22:52 Dose: 150 mg Tramadol HCl (Ultram) 50 mg PO ONETIME ONE Stop: 01/09/20 19:08 Last Admin: 01/09/20 19:16 Dose: 50 mg Tramadol HCl (Ultram) 50 - 100 mg PO BID PRN PRN Reason: PAIN Last Admin: 01/11/20 11:15 Dose: 50 mg - Exam General: Alert, Oriented HEENT: Pupils Equal, Mucous Membr. Moist/[place] Neck: Supple Lungs: Normal Respiratory Effort, Crackles (Bilateral basis) Cardiovascular: Regular Rate, Regular Rhythm GI/Abdominal Exam: Normal Bowel Sounds, Soft, Non-Tender, No Organomegaly, No Distention Back Exam: Normal Inspection Extremities: Normal Inspection, Normal Range of Motion, Non-Tender, No Pedal Edema Skin: Warm, Dry, Intact Neurological: No New Focal Deficit Psy/Mental Status: Alert, Normal Affect, Normal Mood Sepsis Event Note - Evaluation Sepsis Screening Result: No Definite Risk - Focused Exam Vital Signs: Vital Signs Temp Pulse Resp BP Pulse Ox 01/12/20 02:25 97.9 F 91 18 173/79 H 93 L Date Exam was Performed: 01/12/20 Time Exam was Performed: 15:30 - Problem List Review Problem List Initiated/Reviewed/Updated: Yes - Plan Plan:: Back pain Bulging lumbar disc Compression fracture of body of thoracic vertebra Osteoporosis Former smoker Rheumatoid arthritis Resides at [facility] Reports weakness and unable to feed self for past few days History of compression fractures Diffuse endplate concavities throughout lumbar spine Circumferential disk bulging, most severe at L4-L5 causing moderate central canal stenosis Moderate right-sided neural foraminal stenosis noted at L4-L5. Other degenerative change noted. No acute lumbar or thoracic spine fractures. No subluxation noted. Multiple thoracic spine compression deformities. 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 Mild scattered areas of neural foraminal stenosis noted on both sides throughout thoracic spine On home tramadol and Zanaflex Clinoril given x2 - patient reports no improvement of symptoms - discontinue PLAN - Continue tramadol but at lower dose due to poor renal fx - No NSAIDs secondary to renal function - PT/OT - Heat therapy - Ambulate with assistance - Work on establishing pain control - Hold Zanaflex - Start Voltaren gel - Morphine for severe breakthrough pain - Add low-dose oxycodone 2.5 mg every 6 hours as needed pain Depression Vitamin D deficiency Generalized weakness Hypothyroidism Resides at [facility] Reports worsening weakness - unable to ambulate without staff assistance Reports unable to feed herself On home B12 supplementation On home levothyroxine Elevated TSH 0.162, free T4 0.79 Vitamin B12 level over 1899 Vitamin D level: 41 PLAN - Decrease levothyroxine to 75 mcg daily - Recheck TSH in 6 to 8 weeks - Hold vitamin B12 - PT/OT - CM/SW for likely placement - Assisted Living Associate consult HTN (hypertension) First degree AV block On home Cozaar and nitroglycerine PLAN - Stop Cozaar secondary to hyperkalemia - Hold nitro Renal insufficiency Hyponatremia -resolved BUN 52-->70-->68 Creatinine 1.6-->1.8-->1.9-->1.9 GFR 31-->27-->25 Unknown baseline GFR - last visit was 2014 Sodium stable On home lasix PLAN - Jan IV fluids - Monitor electrolytes - Avoid nephrotoxic meds if able - Hold home lasix for now Myelodysplastic syndrome Macrocytic anemia Patient follows Dr. Bassett Reportedly sees oncology every 2 weeks, blood is drawn and need for transfusion is weighed Receives blood transfusion when Hgb is below 8 Reportedly has multiple antibodies Hgb 9.6-->8.1-->9.0 PLAN - Monitor Hgb - Transfuse if necessary Glaucoma Stable PLAN - Monitor COPD (chronic obstructive pulmonary disease) Emphysema of lung Stable Denies any respiratory symptoms No home respiratory meds PLAN - Monitor for symptoms History of CVA (cerebrovascular accident) History of TIA (transient ischemic attack) Cerebrovascular disease No acute symptoms PLAN - Monitor Hyperglycemia, Hgb A1C 7.2% Reportedly being monitored by PCP Glucose 111 on admission PLAN - Goal A1C for age is below 8% - Monitor PROPHYLAXIS DVT- Heparin BID GI- not indicated CODE STATUS: DNR/DNI PCP: Dr. Beckford DISPOSITION: Admitted to medical floor for management of acute on chronic back pain, generalized weakness and renal injury. Resides at [facility] - will likely require placement CM/SW working on discharge plan
[2020-01-12] MEDS ORDERED: oxyCODONE 5 MG Tab PO PRN (12:46)
[2020-01-12] MEDS ORDERED: Sodium Chloride 0.9% 1,000 ML IV SCH (15:45)
[2020-01-12] MEDS: Deferasirox [Jadenu] 360 MG PO SCH (20:33)
[2020-01-13] MEDS: Heparin Sodium 5,000 Units/ML Vial SUBCUT SCH ×2 (08:18→22:20)
[2020-01-13] MEDS: Tamsulosin 0.4 MG Cap.ER PO SCH (08:18)
[2020-01-13] MEDS: traMADol 50 MG Tab PO SCH ×2 (08:19→22:18)
[2020-01-13] MEDS: Sennosides 8.6 MG Tab PO SCH ×2 (08:19→22:20)
[2020-01-13] MEDS: amLODIPine 5 MG Tab PO SCH (09:37)
--- NOTE | 2020-01-13 15:01 | PCM.PN ---
- General Info Date of Service: 01/13/20 Admission Dx/Problem (Free Text): Admission Diagnosis/Problem Admission Diagnosis/Problem Fracture of thoracic spine Subjective Update: Patient states that her pain has improved. She is a little more swollen in her face today with the additional fluids to help improve her renal function and increase hydration. Blood pressure was little more elevated since we stopped her losartan due to hyperkalemia and poor renal function. Patient continues to work with physical therapy. She had 2 bowel movements yesterday. Taking adequately by mouth. Functional Status: Denies: Pain Controlled - Review of Systems General: Reports: No Symptoms HEENT: Reports: No Symptoms Pulmonary: Reports: No Symptoms Cardiovascular: Reports: No Symptoms Gastrointestinal: Reports: No Symptoms Musculoskeletal: Reports: Back Pain - Patient Data Vitals - Most Recent: Last Vital Signs Temp 97.8 F 01/13/20 12:56 Pulse 77 01/13/20 12:56 Resp 16 01/13/20 12:56 BP 149/70 H 01/13/20 12:56 Pulse Ox 97 01/13/20 12:56 Weight - Most Recent: 96 lb 12.8 oz I&O - Last 24 Hours: Intake & Output 01/13/20 01/13/20 01/13/20 06:59 14:59 22:59 Intake Total 1078 180 Output Total 1450 Balance -372 180 Lab Results Last 24 Hours: Laboratory Results - last 24 hr 01/13/20 01/13/20 Range/Units 06:45 06:45 WBC 4.53 (3.98-10.04) K/mm3 RBC 2.93 L (3.98-5.22) M/mm3 Hgb 8.3 L (11.2-15.7) gm/dl Hct 27.5 L (34.1-44.9) % MCV 93.9 (79.4-94.8) fl MCH 28.3 (25.6-32.2) pg MCHC 30.2 L (32.2-35.5) g/dl RDW Std Deviation 66.9 H (36.4-46.3) fL Plt Count 285 (182-369) K/mm3 MPV 10.7 (9.4-12.3) fl Neut % (Auto) 61.0 (34.0-71.1) % Lymph % (Auto) 28.9 (19.3-51.7) % [place] % (Auto) 8.4 (4.7-12.5) % Eos % (Auto) 1.3 (0.7-5.8) Baso % (Auto) 0.2 (0.1-1.2) % Neut # (Auto) 2.76 (1.56-6.13) K/mm3 Lymph # (Auto) 1.31 (1.18-3.74) K/mm3 [place] # (Auto) 0.38 H (0.24-0.36) K/mm3 Eos # (Auto) 0.06 (0.04-0.36) K/mm3 Baso # (Auto) 0.01 (0.01-0.08) K/mm3 Sodium 143 (136-145) mEq/L Potassium 5.2 H (3.5-5.1) mEq/L Chloride 109 H (98-107) mEq/L Carbon Dioxide 26 (21-32) mEq/L Anion Gap 13.2 (5-15) BUN 59 H (7-18) mg/dL Creatinine 1.5 H (0.55-1.02) mg/dL Est Cr Clr Drug Dosing 20.39 mL/min Estimated GFR (MDRD) 33 (>60) mL/min BUN/Creatinine Ratio 39.3 H (14-18) Glucose 69 L (83-115) mg/dL Calcium 8.4 L (8.5-10.1) mg/dL Magnesium 2.4 (1.8-2.4) mg/dl Total Bilirubin 0.4 (0.2-1.0) mg/dL AST 17 (15-37) U/L ALT 31 (14-59) U/L Alkaline Phosphatase 71 (46-116) U/L Total Protein 5.8 L (6.4-8.2) g/dl Albumin 3.0 L (3.4-5.0) g/dl Globulin 2.8 gm/dL Albumin/Globulin Ratio 1.1 (1-2) Med Orders - Current: Current Medications Acetaminophen (Tylenol) 650 mg PO Q6H PRN PRN Reason: PAIN Last Admin: 01/12/20 02:29 Dose: 650 mg Amlodipine Besylate (Norvasc) 5 mg PO DAILY [facility] Last Admin: 01/13/20 09:37 Dose: 5 mg Artificial Tears (Refresh Liquigel 1%) 1 ml EYEBOTH DAILY PRN PRN Reason: Dry Eyes Diclofenac Sodium (Voltaren 1% Gel) 0 gm TOP TID PRN PRN Reason: BACK/SIDE PAIN Last Admin: 01/11/20 12:23 Dose: 1 applic Heparin Sodium (Porcine) (Heparin Sodium) 5,000 units SUBCUT BID [facility] Last Admin: 01/13/20 08:18 Dose: 5,000 units Morphine Sulfate (Morphine) 1 mg IVPUSH Q4H PRN PRN Reason: Pain Oxycodone HCl (Oxycodone) 2.5 mg PO Q6H PRN PRN Reason: Pain Last Admin: 01/12/20 13:13 Dose: 2.5 mg Deferasirox [Jadenu] (360 Mg) 0 each PO BEDTIME [facility] Last Admin: 01/12/20 20:33 Dose: 1 each Senna (Senna) 8.6 mg PO BID [facility] Last Admin: 01/13/20 08:19 Dose: 8.6 mg Simethicone (Simethicone) 80 mg PO Q6H PRN PRN Reason: bloating Last Admin: 01/11/20 12:21 Dose: 80 mg Sodium Chloride (Saline Flush) 10 ml FLUSH ASDIRECTED PRN PRN Reason: Keep Vein Open Last Admin: 01/09/20 19:18 Dose: 10 ml Tamsulosin HCl (Flomax) 0.4 mg PO DAILY [facility] Last Admin: 01/13/20 08:18 Dose: 0.4 mg Tramadol HCl (Ultram) 100 mg PO BID [facility] Last Admin: 01/13/20 08:19 Dose: 100 mg Discontinued Medications Sodium Chloride (Normal Saline) 1,000 mls @ 125 mls/hr IV ASDIRECTED [facility] Last Admin: 01/09/20 17:59 Dose: 125 mls/hr Lactated Ringer's (Ringers, Lactated) 1,000 mls @ 30 mls/hr IV ASDIRECTED [facility] Last Admin: 01/11/20 12:23 Dose: 30 mls/hr Sodium Chloride (Normal Saline) 1,000 mls @ 75 mls/hr IV ASDIRECTED [facility] Last Admin: 01/12/20 06:34 Dose: 75 mls/hr Sodium Chloride (Normal Saline) 1,000 mls @ 50 mls/hr IV ASDIRECTED [facility] Last Admin: 01/12/20 20:27 Dose: 50 mls/hr Levothyroxine Sodium (Synthroid) 88 mcg PO DAILY [facility] Last Admin: 01/11/20 08:44 Dose: 88 mcg Losartan Potassium (Cozaar) 25 mg PO DAILY [facility] Last Admin: 01/11/20 08:43 Dose: 25 mg Magnesium Hydroxide (Milk Of Magnesia) 30 ml PO ONETIME ONE Stop: 01/11/20 16:51 Last Admin: 01/11/20 17:31 Dose: 30 ml Methylprednisolone Sodium Succinate (Solu-Medrol) 40 mg IVPUSH Q8H [facility] Last Admin: 01/09/20 22:53 Dose: 40 mg Methylprednisolone Sodium Succinate (Solu-Medrol) 40 mg IVPUSH Q8H [facility] Last Admin: 01/12/20 06:34 Dose: 40 mg Non-Formulary Medication (Lactose-Reduced Food [Ensure]) 4 oz PO BID [facility] Deferasirox [Jadenu] (360 Mg) 0 each PO DAILY [facility] Last Admin: 01/11/20 08:45 Dose: Not Given Deferasirox [Jadenu] (360 Mg) 0 each PO DAILY [facility] Last Admin: 01/12/20 08:46 Dose: 1 each Sulindac (Clinoril) 150 mg PO BIDAKALS [facility] Last Admin: 01/10/20 07:53 Dose: 150 mg Sulindac (Clinoril) 150 mg PO ONETIME ONE Stop: 01/09/20 23:01 Last Admin: 01/09/20 22:52 Dose: 150 mg Tramadol HCl (Ultram) 50 mg PO ONETIME ONE Stop: 01/09/20 19:08 Last Admin: 01/09/20 19:16 Dose: 50 mg Tramadol HCl (Ultram) 50 - 100 mg PO BID PRN PRN Reason: PAIN Last Admin: 01/11/20 11:15 Dose: 50 mg - Exam Quality Assessment: No: Supplemental Oxygen General: Alert, Oriented HEENT: Pupils Equal, Mucous Membr. Moist/[place] Neck: Supple Lungs: Normal Respiratory Effort, Crackles Cardiovascular: Regular Rate, Regular Rhythm, Rubs GI/Abdominal Exam: Normal Bowel Sounds, Soft, Non-Tender, No Distention Back Exam: Normal Inspection, Full Range of Motion Extremities: Pedal Edema (1+) Skin: Warm, Dry, Intact Psy/Mental Status: Alert, Normal Affect, Normal Mood Sepsis Event Note - Evaluation Sepsis Screening Result: No Definite Risk - Focused Exam Vital Signs: Vital Signs Temp Temp Pulse Pulse Resp BP BP 01/13/20 12:56 97.8 F 77 16 149/70 H 01/13/20 12:00 01/13/20 09:37 173/79 H 01/13/20 08:14 97.5 F 79 18 01/13/20 03:04 98.2 F 84 18 173/98 H BP Pulse Ox Pulse Ox 01/13/20 12:56 97 01/13/20 12:00 97 97 01/13/20 09:37 01/13/20 08:14 172/69 H 97 01/13/20 03:04 97 Date Exam was Performed: 01/13/20 Time Exam was Performed: 15:23 - Problem List Review Problem List Initiated/Reviewed/Updated: Yes - My Orders Last 24 Hours: My Active Orders 01/13/20 08:57 Convert IV to Saline Lock [OM.PC] Routine 01/13/20 09:00 amLODIPine [Norvasc] 5 mg PO DAILY 01/14/20 05:11 BASIC METABOLIC PANEL,BMP [CHEM] AM CBC WITH AUTO DIFF [HEME] AM - Plan Plan:: Back pain Bulging lumbar disc Compression fracture of body of thoracic vertebra Osteoporosis Former smoker Rheumatoid arthritis Resides at [facility] Reports weakness and unable to feed self for a few days prior to discharge History of compression fractures Diffuse endplate concavities throughout lumbar spine Circumferential disk bulging, most severe at L4-L5 causing moderate central canal stenosis Moderate right-sided neural foraminal stenosis noted at L4-L5. Other degenerative change noted. No acute lumbar or thoracic spine fractures. No subluxation noted. Multiple thoracic spine compression deformities. 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 Mild scattered areas of neural foraminal stenosis noted on both sides throughout thoracic spine On home tramadol and Zanaflex Clinoril given x2 - patient reports no improvement of symptoms - discontinue PLAN - Continue tramadol but at lower dose due to poor renal fx - No NSAIDs secondary to renal function - PT/OT - Heat therapy - Ambulate with assistance - Work on establishing pain control - Hold Zanaflex - Start Voltaren gel - Morphine for severe breakthrough pain - Added low-dose oxycodone 2.5 mg every 6 hours as needed pain Depression Vitamin D deficiency Generalized weakness Hypothyroidism Reports worsening weakness - unable to ambulate without staff assistance Reportedly unable to feed herself, but she denies this On home B12 supplementation On home levothyroxine Elevated TSH 0.162, free T4 0.79 Vitamin B12 level over 1899 Vitamin D level: 41 PLAN - Decreased levothyroxine to 75 mcg daily on 01/12/2020 - Recheck TSH in 6 to 8 weeks - Hold vitamin B12 - PT/OT - CM/SW for likely placement - Console Operator consult HTN (hypertension) First degree AV block On home Cozaar and nitroglycerine PLAN - Stop Cozaar secondary to hyperkalemia - Hold nitro - start amlodipine 5 mg daily Renal insufficiency - improved Hyperkalemia - improved Hyponatremia -resolved BUN 52-->70-->68-->59 Creatinine 1.6-->1.8-->1.9-->1.9-->1.5 GFR 31-->27-->25-->33 Unknown baseline GFR - last visit was 2014 Sodium stable On home lasix PLAN - stopped losartan - stop fluids - Monitor electrolytes - Avoid nephrotoxic meds if able - restart home lasix Myelodysplastic syndrome Macrocytic anemia Patient follows Dr. Bassett Reportedly sees oncology every 2 weeks, blood is drawn and need for transfusion is weighed Receives blood transfusion when Hgb is below 8 Reportedly has multiple antibodies Hgb 9.6-->8.1-->9.0-->8.0-->8.3 PLAN - Monitor Hgb - Transfuse if necessary Glaucoma Stable PLAN - Monitor COPD (chronic obstructive pulmonary disease) Emphysema of lung Stable Denies any respiratory symptoms No home respiratory meds PLAN - Monitor for symptoms History of CVA (cerebrovascular accident) History of TIA (transient ischemic attack) Cerebrovascular disease No acute symptoms PLAN - Monitor Hyperglycemia, Hgb A1C 7.2% Reportedly being monitored by PCP Glucose 111 on admission PLAN - Monitor PROPHYLAXIS DVT- Heparin BID GI- not indicated CODE STATUS: DNR/DNI PCP: Dr. Beckford DISPOSITION: Admitted to medical floor for management of acute on chronic back pain, generalized weakness and renal injury. Resides at [facility] - will likely require placement CM/SW working on discharge plan
[2020-01-13] MEDS: Furosemide 40 MG Tab PO SCH (16:11)
[2020-01-13] MEDS: Acetaminophen 325 MG Tab PO PRN (17:15)
[2020-01-13] MEDS: Deferasirox [Jadenu] 360 MG PO SCH (22:26)
[2020-01-14 09:25] VITALS: BP 140/80; PULSE 73
[2020-01-14] MEDS: Sennosides 8.6 MG Tab PO SCH (09:46)
[2020-01-14] MEDS: Furosemide 40 MG Tab PO SCH (09:47)
[2020-01-14] MEDS: Tamsulosin 0.4 MG Cap.ER PO SCH (09:47)
[2020-01-14] MEDS: traMADol 50 MG Tab PO SCH (09:48)
[2020-01-14] MEDS: amLODIPine 5 MG Tab PO SCH (09:49)
[2020-01-14] MEDS: Heparin Sodium 5,000 Units/ML Vial SUBCUT SCH (09:50)
--- NOTE | 2020-01-14 10:17 | PCM.HP.2 ---
H&P History of Present Illness - General Admit Problem/Dx: Admission Diagnosis/Problem Admission Diagnosis/Problem Fracture of thoracic spine - History of Present Illness Initial Comments - Free Text/Narative: Loli Hernández is an 79 yo female who presented to ED on the evening of 2019 via [facility] from [place] where she resides due to difficulty with ambulation and inability to feed herself. Is reported this is been going on for a few days and she is requiring more help from staff. She complains of upper and lower back pain with severe cramps that come and go. Denies any recent injury or infectious symptoms. Denies any chest pain or shortness of breath. Denies abdominal pain, nausea, vomiting, dysuria, or diarrhea. She does report generalized weakness. In the ED temp is 97.1 Fahrenheit. Pulse 81. Respirations 16. Blood pressure 183/76. Pulse ox 97%. Twelve-lead EKG is obtained interpreted by the ED provider a sinus rhythm at 72 bpm with a first-degree heart block. CBC is remarkable for a low hemoglobin of 9.6 and low platelets of 191. Sodium is 138 , potassium 4.0. Chloride 100. Carbon oxide 29. Anion gap is 13. BUN is very high at 52. Creatinine is high at 1.6. EGFR is 31. Glucose is 111. Calcium is 8.5. Magnesium 2.3. Bilirubin 0.7. AST 17, ALT 31, alkaline phosphatase 84. Troponin is negative at less than 0.017. CRP is 1.3. Protein is 6.9. Albumin 3.6. She given a 50 mg p.o. tramadol and started on 125 mils of normal saline. CT of the thoracic spine is obtained and interpreted by Dr. Grey as "1. Multiple compression deformities. 2 levels of prior vertebroplasty are also noted. 2. No definitive acute fracture line is seen. 3. Mild scattered areas of neural foraminal stenosis is noted on both sides throughout the thoracic spine." CT of the lumbar spine is obtained showing "1. Diffuse endplate concavity throughout the lumbar spine. 2. Circumferential disc bulging as noted above most severe at L4-L5 causing moderate central canal stenosis. Moderate right-sided neuroforaminal stenosis also noted at L4-L5. Other degenerative changes noted above. 3. No acute fracture line is appreciated. No abnormal subluxation is seen." Head CT is obtained and interpreted by Dr. Grey as "1. Senescent changes noted above. 2. Nothing acute is seen on noncontrast head CT exam. 3. Mucosal thickening within the left side of the sphenoid sinus which is most likely chronic." She carries a history of glaucoma, hypertension, edema, COPD, emphysema, osteoporosis, RA, osteopenia, CVA, TIA, cerebrovascular disease, depression, fatigue, hypothyroidism, vitamin D deficiency, hyperglycemia, anemia, hyponatremia, myelodysplastic syndrome, macrocytic anemia. She is a former smoker. Her PCP is Dr. Beckford. She sees Dr. Bassett for hematology/oncology. She subsequently admitted to the medical floor for management of her acute on chronic back pain and renal insufficiency. Back Pain Score (Numeric/FACES): 7 - Related Data Allergies/Adverse Reactions: Allergies Allergy/AdvReac Type Severity Reaction Status Date / Time nickel Allergy Mild Rash Verified 01/09/20 17:24 aspirin Allergy Other Verified 01/09/20 17:24 Iodinated Contrast Media Allergy Shortness Verified 01/09/20 17:24 [Iodinated Contrast Media - of Breath IV Dye] Home Medications: Home Meds Ondansetron [Zofran] 1 tab PO Q4H PRN 08/12/17 [History] Emollient Base [Emollient] 1 applic TOP DAILY PRN 12/01/18 [History] Losartan [Cozaar] 25 mg PO DAILY 12/01/18 [History] Cyanocobalamin (Vitamin B-12) [Vitamin B-12] 500 mcg PO DAILY 04/14/19 [History] Deferasirox [Jadenu] 360 mg PO DAILY 04/14/19 [History] Lactose-Reduced Food [Ensure] 4 oz PO BID 04/14/19 [History] Lutein/Min/Vit C/Vit E Acetate [Ocuvite Lutein] 1 cap PO DAILY 04/14/19 [History ] Nitroglycerin [Nitrostat] 0.4 mg SL ASDIRECTED PRN 04/14/19 [History] Tamsulosin [Flomax] 0.4 mg PO DAILY 04/14/19 [History] Biotin 5,000 mcg PO DAILY 01/09/20 [History] Carboxymethylcellulose Sodium [Artificial Tears] 1 drop EYEBOTH DAILY PRN [History] Sennosides/Docusate Sodium [Senna-S] 1 tab PO DAILY PRN 01/09/20 [History] Furosemide [Lasix] 20 mg PO DAILY #30 tab 01/14/20 [Rx] Levothyroxine 75 mcg PO ACBREAKFAST #30 tab 01/14/20 [Rx] amLODIPine [Norvasc] 5 mg PO DAILY #30 tablet 01/14/20 [Rx] oxyCODONE 2.5 mg PO Q6H PRN #5 tablet 01/14/20 [Rx] traMADol [Ultram] 100 mg PO BID #120 tablet 01/14/20 [Rx] Past Medical History HEENT History: Reports: Impaired Vision, Other (See Below) Other HEENT History: glaucoma, dentures Full upper and partial lower, glasses Cardiovascular History: Reports: Hypertension, Other (See Below) Other Cardiovascular History: chest pain, edema Respiratory History: Reports: COPD, SOB, Other (See Below) Other Respiratory History: emphysema Gastrointestinal History: Reports: Chronic Constipation, Other (See Below) Other Gastrointestinal History: abdominal pain Genitourinary History: Reports: UTI, Recurrent, Other (See Below) Other Genitourinary History: urgency [employer] History: Reports: Musculoskeletal History: Reports: Osteoporosis, RA, Other (See Below) Other Musculoskeletal History: osteopenia Neurological History: Reports: CVA, TIA, Other (See Below) Other Neuro History: cerebrovascular disease Psychiatric History: Reports: Anxiety, Depression Other Psychiatric History: fatigue Endocrine/Metabolic History: Reports: Hypothyroidism, Vitamin D Deficiency, Other (See Below) Other Endocrine/Metabolic History: hyperglycemia Hematologic History: Reports: Anemia, Other (See Below) Other Hematologic History: hyponatremia, myelodysplastic syndrome, macrocytic anemia Immunologic History: Reports: None Oncologic (Cancer) History: Reports: Other (See Below) Other Oncologic History: Myodysplastic syndrome Dermatologic History: Reports: Other (See Below) Other Dermatologic History: Excessive dry skin - Infectious Disease History Infectious Disease History: Reports: Chicken Pox, Influenza, Measles - Past Surgical History Head Surgeries/Procedures: Reports: None HEENT Surgical History: Reports: Cataract Surgery Cardiovascular Surgical History: Reports: Carotid Endarterectomy, Other (See Below) Other Cardiovascular Surgeries/Procedures: celiac artery stent Respiratory Surgical History: Reports: None GI Surgical History: Reports: Appendectomy Female Surgical History: Reports: Tubal Ligation Neurological Surgical History: Reports: None Musculoskeletal Surgical History: Reports: Other (See Below) Other Musculoskeletal Surgeries/Procedures:: compresssion fracture, L carpal tunnel surgery, kyphoplasty Oncologic Surgical History: Reports: Bone Marrow Aspiration, Other (See Below) Other Oncologic Surgeries/Procedures: several Social & Family History - Family History Family Medical History: Noncontributory - Tobacco Use Smoking Status *Q: Former Smoker Years of Tobacco use: 50 Packs/Tins Daily: 1 Used Tobacco, but Quit: Yes Month/Year Tobacco Last Used: 12/14 Second Hand Smoke Exposure: No - Caffeine Use Caffeine Use: Reports: Coffee Caffeine Use Comment: 10 cups a day - Recreational Drug Use Recreational Drug Use: No Exam - Vital Signs Vital Signs: Last Vital Signs Temp 97.9 F 01/14/20 08:14 Pulse 73 01/14/20 08:14 Resp 18 01/14/20 08:14 BP 140/80 01/14/20 09:49 Pulse Ox 96 01/14/20 08:14 Weight: 92 lb 8 oz - Patient Data Lab Results Last 24 hrs: Laboratory Results - last 24 hr 01/14/20 01/14/20 Range/Units 05:25 05:25 WBC 4.03 (3.98-10.04) K/mm3 RBC 3.01 L (3.98-5.22) M/mm3 Hgb 8.4 L (11.2-15.7) gm/dl Hct 28.1 L (34.1-44.9) % MCV 93.4 (79.4-94.8) fl MCH 27.9 (25.6-32.2) pg MCHC 29.9 L (32.2-35.5) g/dl RDW Std Deviation 67.8 H (36.4-46.3) fL Plt Count 287 (182-369) K/mm3 MPV 10.4 (9.4-12.3) fl Neut % (Auto) 55.7 (34.0-71.1) % Lymph % (Auto) 28.5 (19.3-51.7) % [place] % (Auto) 10.7 (4.7-12.5) % Eos % (Auto) 4.7 (0.7-5.8) Baso % (Auto) 0.2 (0.1-1.2) % Neut # (Auto) 2.24 (1.56-6.13) K/mm3 Lymph # (Auto) 1.15 L (1.18-3.74) K/mm3 [place] # (Auto) 0.43 H (0.24-0.36) K/mm3 Eos # (Auto) 0.19 (0.04-0.36) K/mm3 Baso # (Auto) 0.01 (0.01-0.08) K/mm3 Manual Slide Review Abnormal smear Sodium 139 (136-145) mEq/L Potassium 4.8 (3.5-5.1) mEq/L Chloride 103 (98-107) mEq/L Carbon Dioxide 28 (21-32) mEq/L Anion Gap 12.8 (5-15) BUN 56 H (7-18) mg/dL Creatinine 1.5 H (0.55-1.02) mg/dL Est Cr Clr Drug Dosing 20.39 mL/min Estimated GFR (MDRD) 33 (>60) mL/min BUN/Creatinine Ratio 37.3 H (14-18) Glucose 81 L (83-115) mg/dL Calcium 8.4 L (8.5-10.1) mg/dL Result Diagrams: 01/14/20 05:25 01/14/20 05:25 Sepsis Event Note - Evaluation Sepsis Screening Result: No Definite Risk - Focused Exam Vital Signs: Vital Signs Temp Temp Pulse Pulse Resp BP BP 01/14/20 09:49 140/80 01/14/20 08:14 97.9 F 73 18 140/80 01/14/20 03:00 97.9 F 74 13 01/13/20 22:17 98.2 F 71 12 164/79 H BP Pulse Ox 01/14/20 09:49 01/14/20 08:14 96 01/14/20 03:00 152/76 H 96 01/13/20 22:17 96 Date Exam was Performed: 01/14/20 Time Exam was Performed: 10:15 Orders Last 24hrs: Active Orders 24 hr Category Date Time Status Communication Order [RC] ASDIRECTED Care 01/14/20 08:22 Active Ready for Discharge [RC] PER UNIT ROUTINE Care 01/14/20 10:13 Ordered Furosemide [Lasix] Med 01/13/20 15:30 Active 40 mg PO DAILY Medication Orders Acetaminophen (Tylenol) 650 mg PO Q6H PRN PRN Reason: PAIN Last Admin: 01/13/20 17:15 Dose: 650 mg Admin: 01/12/20 02:29 Dose: 650 mg Admin: 01/11/20 16:15 Dose: 650 mg Amlodipine Besylate (Norvasc) 5 mg PO DAILY [facility] Last Admin: 01/14/20 09:49 Dose: 5 mg Admin: 01/13/20 09:37 Dose: 5 mg Artificial Tears (Refresh Liquigel 1%) 1 ml EYEBOTH DAILY PRN PRN Reason: Dry Eyes Diclofenac Sodium (Voltaren 1% Gel) 0 gm TOP TID PRN PRN Reason: BACK/SIDE PAIN Last Admin: 01/11/20 12:23 Dose: 1 applic Furosemide (Lasix) 40 mg PO DAILY [facility] Last Admin: 01/14/20 09:47 Dose: 40 mg Admin: 01/13/20 16:11 Dose: 40 mg Heparin Sodium (Porcine) (Heparin Sodium) 5,000 units SUBCUT BID [facility] Last Admin: 01/14/20 09:50 Dose: 5,000 units Admin: 01/13/20 22:20 Dose: 5,000 units Admin: 01/13/20 08:18 Dose: 5,000 units Admin: 01/12/20 20:27 Dose: 5,000 units Admin: 01/12/20 08:45 Dose: 5,000 units Admin: 01/11/20 22:10 Dose: 5,000 units Admin: 01/11/20 08:44 Dose: 5,000 units Admin: 01/10/20 22:05 Dose: 5,000 units Admin: 01/10/20 11:36 Dose: 5,000 units Morphine Sulfate (Morphine) 1 mg IVPUSH Q4H PRN PRN Reason: Pain Oxycodone HCl (Oxycodone) 2.5 mg PO Q6H PRN PRN Reason: Pain Last Admin: 01/12/20 13:13 Dose: 2.5 mg Deferasirox [Jadenu] (360 Mg) 0 each PO BEDTIME [facility] Last Admin: 01/13/20 22:26 Dose: 1 each Admin: 01/12/20 20:33 Dose: 1 each Senna (Senna) 8.6 mg PO BID [facility] Last Admin: 01/14/20 09:46 Dose: 8.6 mg Admin: 01/13/20 22:20 Dose: 8.6 mg Admin: 01/13/20 08:19 Dose: 8.6 mg Admin: 01/12/20 20:28 Dose: Not Given Admin: 01/12/20 08:44 Dose: 8.6 mg Admin: 01/11/20 22:10 Dose: 8.6 mg Admin: 01/11/20 08:43 Dose: 8.6 mg Admin: 01/10/20 22:06 Dose: 8.6 mg Simethicone (Simethicone) 80 mg PO Q6H PRN PRN Reason: bloating Last Admin: 01/11/20 12:21 Dose: 80 mg Sodium Chloride (Saline Flush) 10 ml FLUSH ASDIRECTED PRN PRN Reason: Keep Vein Open Last Admin: 01/09/20 19:18 Dose: 10 ml Tamsulosin HCl (Flomax) 0.4 mg PO DAILY [facility] Last Admin: 01/14/20 09:47 Dose: 0.4 mg Admin: 01/13/20 08:18 Dose: 0.4 mg Admin: 01/12/20 08:45 Dose: 0.4 mg Admin: 01/11/20 08:43 Dose: 0.4 mg Tramadol HCl (Ultram) 100 mg PO BID [facility] Last Admin: 01/14/20 09:48 Dose: 100 mg Admin: 01/13/20 22:18 Dose: 100 mg Admin: 01/13/20 08:19 Dose: 100 mg Admin: 01/12/20 20:28 Dose: 100 mg Admin: 01/12/20 08:44 Dose: 100 mg Admin: 01/11/20 22:11 Dose: 100 mg Assessment/Plan Comment:: Back pain Bulging lumbar disc Compression fracture of body of thoracic vertebra Osteoporosis Former smoker Rheumatoid arthritis Resides at [facility] Reports weakness and unable to feed self for a few days prior to discharge History of compression fractures Diffuse endplate concavities throughout lumbar spine Circumferential disk bulging, most severe at L4-L5 causing moderate central canal stenosis Moderate right-sided neural foraminal stenosis noted at L4-L5. Other degenerative change noted. No acute lumbar or thoracic spine fractures. No subluxation noted. Multiple thoracic spine compression deformities. 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 Mild scattered areas of neural foraminal stenosis noted on both sides throughout thoracic spine On home tramadol and Zanaflex Clinoril given x2 - patient reports no improvement of symptoms - discontinue PLAN - Continue tramadol but at lower dose due to poor renal fx - No NSAIDs secondary to renal function - PT/OT - Heat therapy - Ambulate with assistance - Work on establishing pain control - Hold Zanaflex - Start Voltaren gel - Morphine for severe breakthrough pain - Added low-dose oxycodone 2.5 mg every 6 hours as needed pain Depression Vitamin D deficiency Generalized weakness Hypothyroidism Reports worsening weakness - unable to ambulate without staff assistance Reportedly unable to feed herself, but she denies this On home B12 supplementation On home levothyroxine Elevated TSH 0.162, free T4 0.79 Vitamin B12 level over 1899 Vitamin D level: 41 PLAN - Decreased levothyroxine to 75 mcg daily on 01/12/2020 - Recheck TSH in 6 to 8 weeks - Hold vitamin B12 - PT/OT - CM/SW for likely placement - Erp Project Manager consult HTN (hypertension) First degree AV block On home Cozaar and nitroglycerine PLAN - Stop Cozaar secondary to hyperkalemia - Hold nitro - start amlodipine 5 mg daily Renal insufficiency - improved Hyperkalemia - improved Hyponatremia -resolved BUN 52-->70-->68-->59 Creatinine 1.6-->1.8-->1.9-->1.9-->1.5 GFR 31-->27-->25-->33 Unknown baseline GFR - last visit was 2014 Sodium stable On home lasix PLAN - stopped losartan - stop fluids - Monitor electrolytes - Avoid nephrotoxic meds if able - restart home lasix Myelodysplastic syndrome Macrocytic anemia Patient follows Dr. Bassett Reportedly sees oncology every 2 weeks, blood is drawn and need for transfusion is weighed Receives blood transfusion when Hgb is below 8 Reportedly has multiple antibodies Hgb 9.6-->8.1-->9.0-->8.0-->8.3 PLAN - Monitor Hgb - Transfuse if necessary Glaucoma Stable PLAN - Monitor COPD (chronic obstructive pulmonary disease) Emphysema of lung Stable Denies any respiratory symptoms No home respiratory meds PLAN - Monitor for symptoms History of CVA (cerebrovascular accident) History of TIA (transient ischemic attack) Cerebrovascular disease No acute symptoms PLAN - Monitor Hyperglycemia, Hgb A1C 7.2% Reportedly being monitored by PCP Glucose 111 on admission PLAN - Monitor PROPHYLAXIS DVT- Heparin BID GI- not indicated CODE STATUS: DNR/DNI PCP: Dr. Beckford DISPOSITION: Admitted to medical floor for management of acute on chronic back pain, generalized weakness and renal injury. Resides at [place] - will likely require placement CM/SW working on discharge plan
--- NOTE | 2020-01-14 10:31 | PCM.DCSUM1 ---
Discharge Summary - Hospital Course HPI Initial Comments: Loli Hernández is an 79 yo female who presented to ED on the evening of 2019 via [facility] from [place] where she resides due to difficulty with ambulation and inability to feed herself. Is reported this is been going on for a few days and she is requiring more help from staff. She complains of upper and lower back pain with severe cramps that come and go. Denies any recent injury or infectious symptoms. Denies any chest pain or shortness of breath. Denies abdominal pain, nausea, vomiting, dysuria, or diarrhea. She does report generalized weakness. In the ED temp is 97.1 Fahrenheit. Pulse 81. Respirations 16. Blood pressure 183/76. Pulse ox 97%. Twelve-lead EKG is obtained interpreted by the ED provider a sinus rhythm at 72 bpm with a first-degree heart block. CBC is remarkable for a low hemoglobin of 9.6 and low platelets of 191. Sodium is 138 , potassium 4.0. Chloride 100. Carbon oxide 29. Anion gap is 13. BUN is very high at 52. Creatinine is high at 1.6. EGFR is 31. Glucose is 111. Calcium is 8.5. Magnesium 2.3. Bilirubin 0.7. AST 17, ALT 31, alkaline phosphatase 84. Troponin is negative at less than 0.017. CRP is 1.3. Protein is 6.9. Albumin 3.6. She given a 50 mg p.o. tramadol and started on 125 mils of normal saline. CT of the thoracic spine is obtained and interpreted by Dr. Grey as "1. Multiple compression deformities. 2 levels of prior vertebroplasty are also noted. 2. No definitive acute fracture line is seen. 3. Mild scattered areas of neural foraminal stenosis is noted on both sides throughout the thoracic spine." CT of the lumbar spine is obtained showing "1. Diffuse endplate concavity throughout the lumbar spine. 2. Circumferential disc bulging as noted above most severe at L4-L5 causing moderate central canal stenosis. Moderate right-sided neuroforaminal stenosis also noted at L4-L5. Other degenerative changes noted above. 3. No acute fracture line is appreciated. No abnormal subluxation is seen." Head CT is obtained and interpreted by Dr. Grey as "1. Senescent changes noted above. 2. Nothing acute is seen on noncontrast head CT exam. 3. Mucosal thickening within the left side of the sphenoid sinus which is most likely chronic." She carries a history of glaucoma, hypertension, edema, COPD, emphysema, osteoporosis, RA, osteopenia, CVA, TIA, cerebrovascular disease, depression, fatigue, hypothyroidism, vitamin D deficiency, hyperglycemia, anemia, hyponatremia, myelodysplastic syndrome, macrocytic anemia. She is a former smoker. Her PCP is Dr. Beckford. She sees Dr. Bassett for hematology/oncology. She subsequently admitted to the medical floor for management of her acute on chronic back pain and renal insufficiency. Diagnosis: Stroke: No - Discharge Data Discharge Date: 01/14/20 Discharge Disposition: Home, Home Health Agency 06 Condition: Stable - Referral to Home Health Date of Face to Face Encounter: 01/14/20 Reason for Homebound Status: Face to Face meeting with pt and or family. Pt has the following diagnosis; Fracture of thoracic spine, Back Pain, bulging lumbar disc, Myelodysplastic syndrome, Anemia, Generalized Weakness, also see discharge summary. Pt is in need Home Health Care nursing services for; skilled assessment, vital signs, disease education/management, and pain management. Physical therapy for functional balance training, gait training, transfer training, strengthening, therapeutic exercise. Occupational therapy for self- care training, transfer training and strengthening. Pt is currently homebound related to generalized weakness, dependence on a walker and wheelchair. Pt will be followed by her primary provider Dr. Beckford. Primary Care Physician: Katherine Beckford MD Skilled Need: As above - Patient Summary/Data Consults: Consultations 01/09/20 20:30 PT Evaluation and Treatment [CONS] Routine 01/09/20 20:31 OT Evaluation and Treatment [CONS] Routine 01/10/20 12:09 Consult to Case Management/Radiation Therapy Technologist [CONS] Routine 01/10/20 15:41 Consult to Hydraulic Blocker [CONS] Routine Hospital Course: Patient was initially. Her home medication was admitted for back pain adjusted secondary to her kidney function. Tramadol was switched to 100 mg twice a day. Patient continued to have significant pain so we added a low-dose oxycodone at 2.5 mg every 4 hours as needed for pain. She did get significant benefit from this. We stopped Zanaflex, which did not seem to be helping and may worsen side effects. She worked with physical therapy and ambulation improved greatly during hospitalization. Plan was to send her back to [facility] with home health, but because of the current healthcare crisis they are not coming into homes. Patient will need to go to outpatient physical therapy. TSH was performed and found to be low. We decreased her levothyroxine from 88mcg to 75 mcg. She will need a repeat TSH in 6 to 8 weeks. Vitamin B-12 was also ordered and found to be over 1000. Almost 2000. Recommend holding B12 at this time. Patient was hypovolemic on presentation, therefore Lasix was held and she was given gentle rehydration. We did continue her losartan and she developed hyperkalemia with her potassium increasing up to 6.2 with a recheck of 5.5. Losartan was held and furosemide was restarted. Potassium decreased to 4.8, renal function improved, and it was felt she could restart her losartan. We added amlodipine 5 mg to improve blood pressure control. Hemoglobin was monitored during hospitalization. Initial hemoglobin was 9.6 with repeat after rehydration of 8.1. At time of discharge hemoglobin was 8.4. She will get a recheck on January 16. - Patient Instructions Diet: Usual Diet as Tolerated Activity: As Tolerated Driving: Do Not Drive Showering/Bathing: May Shower Notify Provider of: Increased Pain Other/Special Instructions: We have made some adjustments to your medications to both improve your pain, blood pressure, and decreased risk for dehydration. We changed tramadol to 100 mg twice a day because of your kidney function. Added oxycodone 5 mg one half tab every 4 hours as needed for pain. A total of 5 pills were given and this will need to be reevaluated by your primary care team. Added amlodipine 5 mg a day for blood pressure control. Decreased furosemide from 40mg to 20 mg in the morning. Monitor your weight and lower extremity swelling. Continue losartan 25 mg daily, but you need to have your electrolytes rechecked Thursday when you get your CBC checked by Dr. Bassett. Follow -up with your primary care provider next week. - Discharge Plan *PRESCRIPTION DRUG MONITORING PROGRAM REVIEWED*: No *COPY OF PRESCRIPTION DRUG MONITORING REPORT IN PATIENT GRABIEL: No Prescriptions/Med Rec: amLODIPine [Norvasc] 5 mg PO DAILY #30 tablet Furosemide [Lasix] 20 mg PO DAILY #30 tab Levothyroxine 75 mcg PO ACBREAKFAST #30 tab oxyCODONE 2.5 mg PO Q6H PRN #5 tablet PRN Reason: Pain traMADol [Ultram] 100 mg PO BID #120 tablet Home Medications: Home Meds Ondansetron [Zofran] 1 tab PO Q4H PRN 08/12/17 [History] Emollient Base [Emollient] 1 applic TOP DAILY PRN 12/01/18 [History] Losartan [Cozaar] 25 mg PO DAILY 12/01/18 [History] Cyanocobalamin (Vitamin B-12) [Vitamin B-12] 500 mcg PO DAILY 04/14/19 [History] Deferasirox [Jadenu] 360 mg PO DAILY 04/14/19 [History] Lactose-Reduced Food [Ensure] 4 oz PO BID 04/14/19 [History] Lutein/Min/Vit C/Vit E Acetate [Ocuvite Lutein] 1 cap PO DAILY 04/14/19 [History ] Nitroglycerin [Nitrostat] 0.4 mg SL ASDIRECTED PRN 04/14/19 [History] Tamsulosin [Flomax] 0.4 mg PO DAILY 04/14/19 [History] Biotin 5,000 mcg PO DAILY 01/09/20 [History] Carboxymethylcellulose Sodium [Artificial Tears] 1 drop EYEBOTH DAILY PRN [History] Sennosides/Docusate Sodium [Senna-S] 1 tab PO DAILY PRN 01/09/20 [History] Furosemide [Lasix] 20 mg PO DAILY #30 tab 01/14/20 [Rx] Levothyroxine 75 mcg PO ACBREAKFAST #30 tab 01/14/20 [Rx] amLODIPine [Norvasc] 5 mg PO DAILY #30 tablet 01/14/20 [Rx] oxyCODONE 2.5 mg PO Q6H PRN #5 tablet 01/14/20 [Rx] traMADol [Ultram] 100 mg PO BID #120 tablet 01/14/20 [Rx] Forms: ED Department Discharge Referrals: Katherine Beckford MD [Primary Care Provider] - - Discharge Summary/Plan Comment DC Time >30 min.: Yes Discharge Summary/Plan Comment: Discharged home in stable condition. Follow-up with primary care provider next week. She is scheduled on Thursday to have a CBC at the infusion center. Please obtain a BMP at the same time. - General Info Date of Service: 01/14/20 Subjective Update: Patient continues to have pain but is feeling better overall. Renal function is stable, and potassium has normalized. Hemoglobin is also stable. Functional Status: Reports: Pain Controlled - Review of Systems General: Reports: No Symptoms HEENT: Reports: No Symptoms Pulmonary: Reports: No Symptoms Cardiovascular: Reports: No Symptoms Musculoskeletal: Reports: Back Pain - Patient Data Vitals - Most Recent: Last Vital Signs Temp 97.9 F 01/14/20 08:14 Pulse 73 01/14/20 08:14 Resp 18 01/14/20 08:14 BP 140/80 01/14/20 09:49 Pulse Ox 96 01/14/20 08:14 Weight - Most Recent: 92 lb 8 oz I&O - Last 24 hours: Intake & Output 01/13/20 01/14/20 01/14/20 22:59 06:59 14:59 Intake Total 240 600 180 Output Total 500 2800 Balance -260 -2200 180 Lab Results - Last 24 hrs: Laboratory Results - last 24 hr 01/14/20 01/14/20 Range/Units 05:25 05:25 WBC 4.03 (3.98-10.04) K/mm3 RBC 3.01 L (3.98-5.22) M/mm3 Hgb 8.4 L (11.2-15.7) gm/dl Hct 28.1 L (34.1-44.9) % MCV 93.4 (79.4-94.8) fl MCH 27.9 (25.6-32.2) pg MCHC 29.9 L (32.2-35.5) g/dl RDW Std Deviation 67.8 H (36.4-46.3) fL Plt Count 287 (182-369) K/mm3 MPV 10.4 (9.4-12.3) fl Neut % (Auto) 55.7 (34.0-71.1) % Lymph % (Auto) 28.5 (19.3-51.7) % [place] % (Auto) 10.7 (4.7-12.5) % Eos % (Auto) 4.7 (0.7-5.8) Baso % (Auto) 0.2 (0.1-1.2) % Neut # (Auto) 2.24 (1.56-6.13) K/mm3 Lymph # (Auto) 1.15 L (1.18-3.74) K/mm3 [place] # (Auto) 0.43 H (0.24-0.36) K/mm3 Eos # (Auto) 0.19 (0.04-0.36) K/mm3 Baso # (Auto) 0.01 (0.01-0.08) K/mm3 Manual Slide Review Abnormal smear Sodium 139 (136-145) mEq/L Potassium 4.8 (3.5-5.1) mEq/L Chloride 103 (98-107) mEq/L Carbon Dioxide 28 (21-32) mEq/L Anion Gap 12.8 (5-15) BUN 56 H (7-18) mg/dL Creatinine 1.5 H (0.55-1.02) mg/dL Est Cr Clr Drug Dosing 20.39 mL/min Estimated GFR (MDRD) 33 (>60) mL/min BUN/Creatinine Ratio 37.3 H (14-18) Glucose 81 L (83-115) mg/dL Calcium 8.4 L (8.5-10.1) mg/dL Med Orders - Current: Current Medications Acetaminophen (Tylenol) 650 mg PO Q6H PRN PRN Reason: PAIN Last Admin: 01/13/20 17:15 Dose: 650 mg Amlodipine Besylate (Norvasc) 5 mg PO DAILY [facility] Last Admin: 01/14/20 09:49 Dose: 5 mg Artificial Tears (Refresh Liquigel 1%) 1 ml EYEBOTH DAILY PRN PRN Reason: Dry Eyes Diclofenac Sodium (Voltaren 1% Gel) 0 gm TOP TID PRN PRN Reason: BACK/SIDE PAIN Last Admin: 01/11/20 12:23 Dose: 1 applic Furosemide (Lasix) 40 mg PO DAILY [facility] Last Admin: 01/14/20 09:47 Dose: 40 mg Heparin Sodium (Porcine) (Heparin Sodium) 5,000 units SUBCUT BID [facility] Last Admin: 01/14/20 09:50 Dose: 5,000 units Morphine Sulfate (Morphine) 1 mg IVPUSH Q4H PRN PRN Reason: Pain Oxycodone HCl (Oxycodone) 2.5 mg PO Q6H PRN PRN Reason: Pain Last Admin: 01/12/20 13:13 Dose: 2.5 mg Deferasirox [Jadenu] (360 Mg) 0 each PO BEDTIME [facility] Last Admin: 01/13/20 22:26 Dose: 1 each Senna (Senna) 8.6 mg PO BID [facility] Last Admin: 01/14/20 09:46 Dose: 8.6 mg Simethicone (Simethicone) 80 mg PO Q6H PRN PRN Reason: bloating Last Admin: 01/11/20 12:21 Dose: 80 mg Sodium Chloride (Saline Flush) 10 ml FLUSH ASDIRECTED PRN PRN Reason: Keep Vein Open Last Admin: 01/09/20 19:18 Dose: 10 ml Tamsulosin HCl (Flomax) 0.4 mg PO DAILY [facility] Last Admin: 01/14/20 09:47 Dose: 0.4 mg Tramadol HCl (Ultram) 100 mg PO BID [facility] Last Admin: 01/14/20 09:48 Dose: 100 mg Discontinued Medications Sodium Chloride (Normal Saline) 1,000 mls @ 125 mls/hr IV ASDIRECTED [facility] Last Admin: 01/09/20 17:59 Dose: 125 mls/hr Lactated Ringer's (Ringers, Lactated) 1,000 mls @ 30 mls/hr IV ASDIRECTED [facility] Last Admin: 01/11/20 12:23 Dose: 30 mls/hr Sodium Chloride (Normal Saline) 1,000 mls @ 75 mls/hr IV ASDIRECTED [facility] Last Admin: 01/12/20 06:34 Dose: 75 mls/hr Sodium Chloride (Normal Saline) 1,000 mls @ 50 mls/hr IV ASDIRECTED [facility] Last Admin: 01/12/20 20:27 Dose: 50 mls/hr Levothyroxine Sodium (Synthroid) 88 mcg PO DAILY [facility] Last Admin: 01/11/20 08:44 Dose: 88 mcg Losartan Potassium (Cozaar) 25 mg PO DAILY [facility] Last Admin: 01/11/20 08:43 Dose: 25 mg Magnesium Hydroxide (Milk Of Magnesia) 30 ml PO ONETIME ONE Stop: 01/11/20 16:51 Last Admin: 01/11/20 17:31 Dose: 30 ml Methylprednisolone Sodium Succinate (Solu-Medrol) 40 mg IVPUSH Q8H [facility] Last Admin: 01/09/20 22:53 Dose: 40 mg Methylprednisolone Sodium Succinate (Solu-Medrol) 40 mg IVPUSH Q8H [facility] Last Admin: 01/12/20 06:34 Dose: 40 mg Non-Formulary Medication (Lactose-Reduced Food [Ensure]) 4 oz PO BID [facility] Deferasirox [Jadenu] (360 Mg) 0 each PO DAILY [facility] Last Admin: 01/11/20 08:45 Dose: Not Given Deferasirox [Jadenu] (360 Mg) 0 each PO DAILY [facility] Last Admin: 01/12/20 08:46 Dose: 1 each [facility]ind[facility]Clinoril[facility] Last Admin: 01/10/20 07:53 Dose: 150 mg Sulindac (Clinoril) 150 mg PO ONETIME ONE Stop: 01/09/20 23:01 Last Admin: 01/09/20 22:52 Dose: 150 mg Tramadol HCl (Ultram) 50 mg PO ONETIME ONE Stop: 01/09/20 19:08 Last Admin: 01/09/20 19:16 Dose: 50 mg Tramadol HCl (Ultram) 50 - 100 mg PO BID PRN PRN Reason: PAIN Last Admin: 01/11/20 11:15 Dose: 50 mg - Exam General: Reports: Alert, Oriented HEENT: Reports: Pupils Equal, Mucous Membr. Moist/[place] Neck: Reports: Supple Lungs: Reports: Normal Respiratory Effort, Rales Cardiovascular: Reports: Regular Rate, Regular Rhythm Extremities: Normal Capillary Refill, Pedal Edema (2+) Skin: Reports: Warm, Dry, Intact Psy/Mental Status: Reports: Alert, Normal Affect, Normal Mood
== END 2020-01-14 11:48 | disposition home health service (06) | DRG 552 ==
LOC: JD.ED 17:11 → JD.MS 20:08 → OBSVTOIN 01-10 11:17
PROVIDERS: ADMIT Internal Medicine; ATTEND Internal Medicine
DX: S22.000A Wedge compression fracture of unspecified thoracic vertebra, initial encounter for closed fracture (principal); E87.1 Hypo-osmolality and hyponatremia; M51.26 Other intervertebral disc displacement, lumbar region; M48.061 Spinal stenosis, lumbar region without neurogenic claudication; K59.09 Other constipation; M81.0 Age-related osteoporosis without current pathological fracture; I10 Essential (primary) hypertension; F41.9 Anxiety disorder, unspecified; F32.9 Major depressive disorder, single episode, unspecified; J43.9 Emphysema, unspecified; I44.0 Atrioventricular block, first degree; E03.9 Hypothyroidism, unspecified; H40.9 Unspecified glaucoma; M06.9 Rheumatoid arthritis, unspecified; M85.80 Other specified disorders of bone density and structure, unspecified site; N28.9 Disorder of kidney and ureter, unspecified; E55.9 Vitamin D deficiency, unspecified; R53.1 Weakness; Z66 Do not resuscitate; H54.7 Unspecified visual loss; R73.9 Hyperglycemia, unspecified; Z98.49 Cataract extraction status, unspecified eye; D53.9 Nutritional anemia, unspecified; E87.5 Hyperkalemia; Z91.041 Radiographic dye allergy status; Z91.048 Other nonmedicinal substance allergy status; Z88.6 Allergy status to analgesic agent; Z88.8 Allergy status to other drugs, medicaments and biological substances; Z86.73 Personal history of transient ischemic attack (TIA), and cerebral infarction without residual deficits; Z79.890 Hormone replacement therapy; Z79.899 Other long term (current) drug therapy; Z87.891 Personal history of nicotine dependence
CPT/HCPCS: 36415; 70450; 72128; 72131; 80053; 81001; 83735; 84484; 85025; 86140; 87641; 93005; 96360; 96361; 97165; 97535 ×2; 99285; A9270 ×3; J2920 ×2; J7030; 80048; 82306; 82570; 82607; 82747; 83036; 84100; 84132; 84156; 84300; 84439; 84443; 85014; 85027; 93010; 97110-GO; 97110-GP; 97116-GP; 97162-GP; 97530-GO; 97530-GP; 99284; J1644; J7120

== ENCOUNTER 2020-01-24 16:48 | Emergency (ER) | payer MEDICARE, MEDICAID ==
[2020-01-24 17:03] VITALS: BP 171/86; PULSE 98
[2020-01-24] MEDS ORDERED: HYDROmorphone 0.5 MG/0.5 ML Syringe IVPUSH ONE (17:27)
--- NOTE | 2020-01-24 17:34 | EDM.PDOC ---
ED HPI GENERAL MEDICAL PROBLEM - General Chief Complaint: Back Pain or Injury Stated Complaint: [facility] Time Seen by Provider: 01/24/20 17:05 Source of Information: Reports: Patient, RN Notes Reviewed History Limitations: Reports: No Limitations - History of Present Illness INITIAL COMMENTS - FREE TEXT/NARRATIVE: Patient is an 79-year-old female who presents to the ED via [facility] for evaluation of a fall. The patient presents to the ED for a fall she had at [facility]. Patient states that she was walking to the bathroom, but states she was walking backward for some reason, when she ended up falling down, hurting her low back/pelvis/tailbone, and ended up hitting her head. She does have some skin tears on her elbows, but states these are not painful. She is complaining about the pain in her back and head mostly. The family present in the room states that the patient normally has an issue with double vision however she does seem to think that this is worse than her normal baseline. Patient states her pain is a 10 out of 10, she did not receive anything for pain while in the ambulance. They were able to place an IV however. Penis Pain Score (Numeric/FACES): 7 - Related Data Allergies Allergy/AdvReac Type Severity Reaction Status Date / Time nickel Allergy Mild Rash Verified 01/24/20 17:03 aspirin Allergy Other Verified 01/24/20 17:03 Iodinated Contrast Media Allergy Shortness Verified 01/24/20 17:03 [Iodinated Contrast Media - of Breath IV Dye] Home Meds: Home Meds Ondansetron [Zofran] 1 tab PO Q4H PRN 08/12/17 [History] Emollient Base [Emollient] 1 applic TOP DAILY PRN 12/01/18 [History] Losartan [Cozaar] 25 mg PO DAILY 12/01/18 [History] Cyanocobalamin (Vitamin B-12) [Vitamin B-12] 500 mcg PO DAILY 04/14/19 [History] Deferasirox [Jadenu] 360 mg PO DAILY 04/14/19 [History] Lactose-Reduced Food [Ensure] 4 oz PO BID 04/14/19 [History] Lutein/Min/Vit C/Vit E Acetate [Ocuvite Lutein] 1 cap PO DAILY 04/14/19 [History ] Nitroglycerin [Nitrostat] 0.4 mg SL ASDIRECTED PRN 04/14/19 [History] Tamsulosin [Flomax] 0.4 mg PO DAILY 04/14/19 [History] Biotin 5,000 mcg PO DAILY 01/09/20 [History] Carboxymethylcellulose Sodium [Artificial Tears] 1 drop EYEBOTH DAILY PRN [History] Sennosides/Docusate Sodium [Senna-S] 1 tab PO DAILY PRN 01/09/20 [History] Furosemide [Lasix] 20 mg PO DAILY #30 tab 01/14/20 [Rx] Levothyroxine 75 mcg PO ACBREAKFAST #30 tab 01/14/20 [Rx] amLODIPine [Norvasc] 5 mg PO DAILY #30 tablet 01/14/20 [Rx] oxyCODONE 2.5 mg PO Q6H PRN #5 tablet 01/14/20 [Rx] traMADol [Ultram] 100 mg PO BID #120 tablet 01/14/20 [Rx] Past Medical History HEENT History: Reports: Impaired Vision, Other (See Below) Other HEENT History: glaucoma, dentures Full upper and partial lower, glasses Cardiovascular History: Reports: Hypertension, Other (See Below) Other Cardiovascular History: chest pain, edema Respiratory History: Reports: COPD, SOB, Other (See Below) Other Respiratory History: emphysema Gastrointestinal History: Reports: Chronic Constipation, Other (See Below) Other Gastrointestinal History: abdominal pain Genitourinary History: Reports: UTI, Recurrent, Other (See Below) Other Genitourinary History: urgency 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: Musculoskeletal History: Reports: Osteoporosis, RA, Other (See Below) Other Musculoskeletal History: osteopenia Neurological History: Reports: CVA, TIA, Other (See Below) Other Neuro History: cerebrovascular disease Psychiatric History: Reports: Anxiety, Depression Other Psychiatric History: fatigue Endocrine/Metabolic History: Reports: Hypothyroidism, Vitamin D Deficiency, Other (See Below) Other Endocrine/Metabolic History: hyperglycemia Hematologic History: Reports: Anemia, Other (See Below) Other Hematologic History: hyponatremia, myelodysplastic syndrome, macrocytic anemia Immunologic History: Reports: None Oncologic (Cancer) History: Reports: Other (See Below) Other Oncologic History: Myodysplastic syndrome Dermatologic History: Reports: Other (See Below) Other Dermatologic History: Excessive dry skin - Infectious Disease History Infectious Disease History: Reports: Chicken Pox, Influenza, Measles - Past Surgical History Head Surgeries/Procedures: Reports: None HEENT Surgical History: Reports: Cataract Surgery Cardiovascular Surgical History: Reports: Carotid Endarterectomy, Other (See Below) Other Cardiovascular Surgeries/Procedures: celiac artery stent Respiratory Surgical History: Reports: None GI Surgical History: Reports: Appendectomy Female Surgical History: Reports: Tubal Ligation Neurological Surgical History: Reports: None Musculoskeletal Surgical History: Reports: Other (See Below) Other Musculoskeletal Surgeries/Procedures:: compresssion fracture, L carpal tunnel surgery, kyphoplasty Oncologic Surgical History: Reports: Bone Marrow Aspiration, Other (See Below) Other Oncologic Surgeries/Procedures: several Social & Family History - Family History Family Medical History: Noncontributory - Tobacco Use Smoking Status *Q: Never Smoker - Caffeine Use Caffeine Use: Reports: Coffee Caffeine Use Comment: 10 cups a day ED ROS GENERAL - Review of Systems Review Of Systems: Comprehensive ROS is negative, except as noted in HPI. ED EXAM,LOWER BACK PAIN/INJURY - Physical Exam Exam: See Below Exam Limited By: No Limitations General Appearance: Alert, WD/WN, No Apparent Distress Eye Exam: Bilateral Eye: EOMI, Normal Inspection, PERRL Ears: Normal External Exam Nose: Normal Inspection Throat/Mouth: Normal Inspection, Normal Lips, Normal Teeth, Normal Gums, Normal Oropharynx, Normal Voice, No Airway Compromise Head: Atraumatic Neck: Normal Inspection, Supple, Full Range of Motion, Tender Lateral (mild tenderness to palpation at base of skull, she states this is where her head hit the floor) Respiratory/Chest: No Respiratory Distress, Lungs Clear, Normal Breath Sounds, No Accessory Muscle Use, Chest Non-Tender Cardiovascular: Normal Peripheral Pulses, Regular Rate, Rhythm, No Murmur GI/Abdominal: Normal Bowel Sounds, Soft, Non-Tender, No Distention, No Mass Back Exam: Other (tenderness to palpation around left SI joint, upon visualization, there does seem to be a deformity, and when palpated this does appear to be the point of her pain.) Extremities: Normal Inspection, Normal Capillary Refill Neurological: Alert, CN II-XII Intact (grossly), Oriented x 3. No: Abn 2 Pt Discrimination Psychiatric: Normal Affect, Normal Mood Skin Exam: Warm, Dry, Normal Color, No Rash, Wound/Incision (Skin tear lesions on bilateral elbows.) Course - Vital Signs Last Recorded V/S: Last Vital Signs Temp 97.8 F 01/24/20 16:58 Pulse 98 01/24/20 16:58 Resp 16 01/24/20 16:58 BP 171/86 H 01/24/20 16:58 Pulse Ox 98 01/24/20 16:58 - Orders/Labs/Meds Meds: Medications Discontinued Medications Generic Name Dose Route Start Last Admin Trade Name You PRN Reason Stop Dose Admin Hydromorphone HCl 0.5 mg 01/24/20 17:27 01/24/20 18:01 Dilaudid IVPUSH 01/24/20 17:28 0.5 mg ONETIME ONE Administration - Re-Assessments/Exams Free Text/Narrative Re-Assessment/Exam: 01/24/20 17:37 She presents to the ED for evaluation of her fall. Have ordered a head CT, pelvis x-rays and a sacrum/coccyx x-ray for evaluation. I have ordered 0.5 mg Dilaudid, and 0.25 mg dosages, to make sure the patient tolerates the medication. 01/24/20 19:10 Patient's x-rays have been done, and there are no acute fractures noted. There is osteoporosis. Head CT also demonstrates no acute abnormalities. Departure - Departure Time of Disposition: 19:25 Disposition: Home, Self-Care 01 Condition: Fair Clinical Impression: Fall Qualifiers: Encounter type: initial encounter Qualified Code(s): W19.XXXA - Unspecified fall, initial encounter - Discharge Information *PRESCRIPTION DRUG MONITORING PROGRAM REVIEWED*: No *COPY OF PRESCRIPTION DRUG MONITORING REPORT IN PATIENT GRABIEL: No Instructions: Fall Prevention in Hospitals, Adult Referrals: PCP,Unknown [Ordering Only Provider] - Forms: ED Department Discharge Additional Instructions: You were evaluated in the ER today regarding your fall that you had earlier today. You have had pelvis/hip x-rays, and tailbone x-rays, none of which demonstrated any sort of fracture. You also had a head CT that demonstrated no acute abnormalities. Recommend that your tramadol stay as prescribed, and the 2.5 mg oxycodone be given every 6 hours while awake for further pain relief. If you are not already doing so, recommend you take a stool softener like MiraLAX to help keep your bowels regular during the oxycodone use, as these medications can be constipating. If the combination of the tramadol and oxycodone is too sedating for you, recommend that the tramadol be increased to every 6 hours while awake, or take only the oxycodone every 6 hours while awake. Recommend you get an appointment with your primary care provider in the next week or so for re-evaluation of your injuries. Your elbows were dressed at today's visit, with nonstick pads, please keep the areas clean and dry and these should heal appropriately. Please return to the ER at any time if symptoms should change or worsen. Sepsis Event Note - Evaluation Sepsis Screening Result: No Definite Risk - Focused Exam Vital Signs: Vital Signs Temp Pulse Resp BP Pulse Ox 01/24/20 16:58 97.8 F 98 16 171/86 H 98 Date Exam was Performed: 01/24/20 Time Exam was Performed: 19:25
--- NOTE | 2020-01-24 19:06 | CT ---
Head CT Technique: Multiple axial sections to the brain were obtained. Intravenous contrast was not utilized. Comparison: Prior head CT study of 01/09/20. Findings: Ventricles along with basal cisterns and sulci over the convexities are mildly prominent. Minimal areas of diminished density are noted within the periventricular white matter compatible with small vessel ischemic demyelination change. No other abnormal parenchymal densities are seen. No evidence of intracranial hemorrhage. No midline shift or mass effect is seen. Stable calcification is noted within the interhemispheric falx. Bone window settings were reviewed which shows no acute osseous finding. No acute mastoid sinus findings are seen. Moderate mucosal thickening is noted within the left side of the sphenoid sinus which is stable. Impression: 1. Stable senescent change from previous head CT study. 2. No acute intracranial abnormality is appreciated. 3. Sinus findings which are stable from previous exam. No acute calvarial abnormality is appreciated. Diagnostic code #2 Study was dictated in MDT
--- NOTE | 2020-01-24 19:06 | CR ---
Sacrum and coccyx: 3 views of the sacrum and coccyx were obtained. Bony structures are osteoporotic. Sacrum not well seen due to osteoporosis. No discrete fracture or other abnormality is appreciated. Impression: 1. Poorly seen sacrum due to osteoporosis. 2. No definite acute abnormality is otherwise seen. Diagnostic code #2 Study was dictated in MDT
--- NOTE | 2020-01-24 19:06 | CR ---
Pelvis: AP view of the pelvis was obtained as well as an additional 2 views. Bony structures are osteoporotic. Joint spaces within both hips are maintained. Vascular calcification is present. No discrete fracture or other bony abnormality is appreciated. Impression: 1. Osteoporosis and vascular calcification. 2. Nothing acute is appreciated on 3 view pelvis study. Diagnostic code #2 Study was dictated in MDT
== END 2020-01-24 19:58 | disposition home or self-care (01) ==
LOC: JD.ED 16:48
DX: M54.5 Low back pain (principal); I10 Essential (primary) hypertension; J44.9 Chronic obstructive pulmonary disease, unspecified; E03.9 Hypothyroidism, unspecified; Z91.09 Other allergy status, other than to drugs and biological substances; Z91.041 Radiographic dye allergy status; Z86.73 Personal history of transient ischemic attack (TIA), and cerebral infarction without residual deficits; W18.30XA Fall on same level, unspecified, initial encounter; Z91.81 History of falling
CPT/HCPCS: 70450; 72190; 72220; 96374; 99284; J1170; 99283

== ENCOUNTER 2020-01-31 11:54 | Emergency (ER) | payer MEDICARE, MEDICAID ==
[2020-01-31] MEDS ORDERED: HYDROmorphone 0.5 MG/0.5 ML Syringe IVPUSH ONE (12:43)
[2020-01-31] MEDS ORDERED: Sodium Chloride 0.9% 10 ML Syringe FLUSH PRN (12:43)
[2020-01-31] MEDS ORDERED: Sodium Chloride 0.9% 1,000 ML IV SCH (12:45)
[2020-01-31] MEDS ORDERED: Acetaminophen 325 MG Tab PO ONE (13:03)
--- NOTE | 2020-01-31 13:22 | EDM.PDOC ---
ED HPI GENERAL MEDICAL PROBLEM - General Chief Complaint: Back Pain or Injury Stated Complaint: [facility] Time Seen by Provider: 01/31/20 12:02 Source of Information: Reports: Patient History Limitations: Reports: No Limitations - History of Present Illness INITIAL COMMENTS - FREE TEXT/NARRATIVE: Patient is an 79-year-old female who presents to the ER via ambulance for complaints of low back pain. She states this is been a chronic issue for her for approximately last month since she fell. This will be the third time she has been seen in this emergency department for the symptoms. Patient states that she has been taking tramadol for the pain. Her last dose was around 7:00 this morning. Per the assisted living report, patient has been refusing to get out of bed. They have been having to lift her to her wheelchair. Patient denies any new injury or falls. She denies any fever, chills, nausea, or vomiting. Patient's past medical history is significant for macrocytic anemia, mylodysplastic syndrome requiring frequent blood transfusions. Lower Back Pain Score (Numeric/FACES): 10 - Related Data Allergies Allergy/AdvReac Type Severity Reaction Status Date / Time nickel Allergy Mild Rash Verified 01/31/20 12:06 acetaminophen [From Tylenol] Allergy Swollen Verified 01/31/20 13:16 Eyes aspirin Allergy Other Verified 01/31/20 12:06 Iodinated Contrast Media Allergy Shortness Verified 01/31/20 12:06 [Iodinated Contrast Media - of Breath IV Dye] Home Meds: Home Meds Ondansetron [Zofran] 1 tab PO Q4H PRN 08/12/17 [History] Emollient Base [Emollient] 1 applic TOP DAILY PRN 12/01/18 [History] Losartan [Cozaar] 25 mg PO DAILY 12/01/18 [History] Cyanocobalamin (Vitamin B-12) [Vitamin B-12] 500 mcg PO DAILY 04/14/19 [History] Deferasirox [Jadenu] 360 mg PO DAILY 04/14/19 [History] Lactose-Reduced Food [Ensure] 4 oz PO BID 04/14/19 [History] Lutein/Min/Vit C/Vit E Acetate [Ocuvite Lutein] 1 cap PO DAILY 04/14/19 [History ] Nitroglycerin [Nitrostat] 0.4 mg SL ASDIRECTED PRN 04/14/19 [History] Tamsulosin [Flomax] 0.4 mg PO DAILY 04/14/19 [History] Biotin 5,000 mcg PO DAILY 01/09/20 [History] Carboxymethylcellulose Sodium [Artificial Tears] 1 drop EYEBOTH DAILY PRN [History] Sennosides/Docusate Sodium [Senna-S] 1 tab PO DAILY PRN 01/09/20 [History] Levothyroxine 75 mcg PO ACBREAKFAST #30 tab 01/14/20 [Rx] amLODIPine [Norvasc] 5 mg PO DAILY #30 tablet 01/14/20 [Rx] Baclofen 5 mg PO TID 01/31/20 [History] Fluticasone Propionate [Flonase] 1 spray NASBOTH BID 01/31/20 [History] Furosemide [Lasix] 40 mg PO DAILY 01/31/20 [History] polyethylene glycoL 3350 [MiraLAX] 17 gm PO DAILY 01/31/20 [History] traMADol [Ultram] 50 mg PO Q4H PRN #30 tab 01/31/20 [Rx] traMADol [Ultram] 50 mg PO Q6H PRN 01/31/20 [History] Past Medical History HEENT History: Reports: Impaired Vision, Other (See Below) Other HEENT History: glaucoma, dentures Full upper and partial lower, glasses Cardiovascular History: Reports: Hypertension, Other (See Below) Other Cardiovascular History: chest pain, edema Respiratory History: Reports: COPD, SOB, Other (See Below) Other Respiratory History: emphysema Gastrointestinal History: Reports: Chronic Constipation, Other (See Below) Other Gastrointestinal History: abdominal pain Genitourinary History: Reports: UTI, Recurrent, Other (See Below) Other Genitourinary History: urgency [employer]CH[employer]ICIAN History: Reports: Musculoskeletal History: Reports: Osteoporosis, RA, Other (See Below) Other Musculoskeletal History: osteopenia Neurological History: Reports: CVA, TIA, Other (See Below) Other Neuro History: cerebrovascular disease Psychiatric History: Reports: Anxiety, Depression Other Psychiatric History: fatigue Endocrine/Metabolic History: Reports: Hypothyroidism, Vitamin D Deficiency, Other (See Below) Other Endocrine/Metabolic History: hyperglycemia Hematologic History: Reports: Anemia, Other (See Below) Other Hematologic History: hyponatremia, myelodysplastic syndrome, macrocytic anemia Immunologic History: Reports: None Oncologic (Cancer) History: Reports: Other (See Below) Other Oncologic History: Myodysplastic syndrome Dermatologic History: Reports: Other (See Below) Other Dermatologic History: Excessive dry skin - Infectious Disease History Infectious Disease History: Reports: Chicken Pox, Influenza, Measles - Past Surgical History Head Surgeries/Procedures: Reports: None HEENT Surgical History: Reports: Cataract Surgery Cardiovascular Surgical History: Reports: Carotid Endarterectomy, Other (See Below) Other Cardiovascular Surgeries/Procedures: celiac artery stent Respiratory Surgical History: Reports: None GI Surgical History: Reports: Appendectomy Female Surgical History: Reports: Tubal Ligation Neurological Surgical History: Reports: None Musculoskeletal Surgical History: Reports: Other (See Below) Other Musculoskeletal Surgeries/Procedures:: compresssion fracture, L carpal tunnel surgery, kyphoplasty Oncologic Surgical History: Reports: Bone Marrow Aspiration, Other (See Below) Other Oncologic Surgeries/Procedures: several Social & Family History - Family History Family Medical History: Noncontributory - Tobacco Use Smoking Status *Q: Never Smoker - Caffeine Use Caffeine Use: Reports: None Caffeine Use Comment: 10 cups a day - Recreational Drug Use Recreational Drug Use: No ED ROS GENERAL - Review of Systems Review Of Systems: Comprehensive ROS is negative, except as noted in HPI. ED EXAM,LOWER BACK PAIN/INJURY - Physical Exam Exam: Not Obtained Exam Limited By: No Limitations General Appearance: Alert, WD/WN, No Apparent Distress Respiratory/Chest: No Respiratory Distress, Lungs Clear, Normal Breath Sounds, No Accessory Muscle Use, Chest Non-Tender Cardiovascular: Normal Peripheral Pulses, Regular Rate, Rhythm, No Edema, No Gallop, No JVD, No Murmur, No Rub GI/Abdominal: Normal Bowel Sounds, Soft, Non-Tender, No Organomegaly, No Distention, No Abnormal Bruit, No Mass Back Exam: Normal Inspection, Paraspinal Tenderness (Lumbar), Vertebral Tenderness (Lumbar) Neurological: Alert, Normal Mood/Affect, Normal Dorsiflexion, CN II-XII Intact, Normal Plantar Flexion, Normal Gait, Normal Reflexes, No Motor/Sensory Deficits , Oriented x 3 Psychiatric: Normal Affect, Normal Mood Skin Exam: Warm, Dry, Intact, Normal Color, No Rash Course - Vital Signs Last Recorded V/S: Last Vital Signs Temp 98.3 F 02/01/20 14:10 Pulse 78 02/01/20 14:10 Resp 20 02/01/20 14:10 BP 184/87 H 02/01/20 14:10 Pulse Ox 90 L 02/01/20 14:10 - Orders/Labs/Meds Orders: Active Orders 24 hr Category Date Time Status Sodium Chloride 0.9% [Normal Saline] 1,000 ml Med 02/01/20 10:00 Active IV ASDIRECTED Blood Transfusion Reflex Orders [OM.PC] Per Unit Oth 02/01/20 10:00 Ordered Routine Transfuse Red Blood Cells [COMM] Routine Oth 02/01/20 10:00 Ordered Medication Orders Sodium Chloride (Normal Saline) 1,000 mls @ 125 mls/hr IV ASDIRECTED AYLA Last Admin: 02/01/20 10:26 Dose: 125 mls/hr Labs: Laboratory Tests 01/31/20 01/31/20 01/31/20 Range/Units 12:55 12:55 12:55 WBC 7.59 (3.98-10.04) K/mm3 RBC 2.26 L (3.98-5.22) M/mm3 Hgb 6.6 L* D (11.2-15.7) gm/dl Hct 21.1 L (34.1-44.9) % MCV 93.4 (79.4-94.8) fl MCH 29.2 (25.6-32.2) pg MCHC 31.3 L (32.2-35.5) g/dl RDW Std Deviation 71.2 H (36.4-46.3) fL Plt Count 353 (182-369) K/mm3 MPV 9.5 (9.4-12.3) fl Neut % (Auto) 80.8 H (34.0-71.1) % Lymph % (Auto) 7.4 L (19.3-51.7) % [place] % (Auto) 9.6 (4.7-12.5) % Eos % (Auto) 1.7 (0.7-5.8) Baso % (Auto) 0.1 (0.1-1.2) % Neut # (Auto) 6.13 (1.56-6.13) K/mm3 Lymph # (Auto) 0.56 L (1.18-3.74) K/mm3 [place] # (Auto) 0.73 H (0.24-0.36) K/mm3 Eos # (Auto) 0.13 (0.04-0.36) K/mm3 Baso # (Auto) 0.01 (0.01-0.08) K/mm3 Manual Slide Review Abnormal smear Sodium 131 L (136-145) mEq/L Potassium 3.9 (3.5-5.1) mEq/L Chloride 96 L (98-107) mEq/L Carbon Dioxide 28 (21-32) mEq/L Anion Gap 10.9 (5-15) BUN 38 H (7-18) mg/dL Creatinine 1.7 H (0.55-1.02) mg/dL Est Cr Clr Drug Dosing TNP Estimated GFR (MDRD) 29 (>60) mL/min BUN/Creatinine Ratio 22.4 H (14-18) Glucose 231 H (83-115) mg/dL Calcium 8.3 L (8.5-10.1) mg/dL Total Bilirubin 0.9 (0.2-1.0) mg/dL AST 21 (15-37) U/L ALT 30 (14-59) U/L Alkaline Phosphatase 100 (46-116) U/L Total Protein 6.3 L (6.4-8.2) g/dl Albumin 3.2 L (3.4-5.0) g/dl Globulin 3.1 gm/dL Albumin/Globulin Ratio 1.0 (1-2) Urine Color (Yellow) Urine Appearance (Clear) Urine pH (5.0-8.0) Ur Specific [place] (1.005-1.030) Urine Protein (Negative) Urine Glucose (UA) (Negative) Urine Ketones (Negative) Urine Occult Blood (Negative) Urine Nitrite (Negative) Urine Bilirubin (Negative) Urine Urobilinogen (0.2-1.0) Ur Leukocyte Esterase (Negative) Urine RBC (0-5) /hpf Urine WBC (0-5) /hpf Ur Squamous Epith Cells (0-5) /hpf Urine Bacteria (FEW) /hpf Urine Mucus (FEW) /hpf Blood Type O NEGATIVE Gel Antibody Screen Positive Crossmatch See Detail 01/31/20 Range/Units 14:20 WBC (3.98-10.04) K/mm3 RBC (3.98-5.22) M/mm3 Hgb (11.2-15.7) gm/dl Hct (34.1-44.9) % MCV (79.4-94.8) fl MCH (25.6-32.2) pg MCHC (32.2-35.5) g/dl RDW Std Deviation (36.4-46.3) fL Plt Count (182-369) K/mm3 MPV (9.4-12.3) fl Neut % (Auto) (34.0-71.1) % Lymph % (Auto) (19.3-51.7) % [place] % (Auto) (4.7-12.5) % Eos % (Auto) (0.7-5.8) Baso % (Auto) (0.1-1.2) % Neut # (Auto) (1.56-6.13) K/mm3 Lymph # (Auto) (1.18-3.74) K/mm3 [place] # (Auto) (0.24-0.36) K/mm3 Eos # (Auto) (0.04-0.36) K/mm3 Baso # (Auto) (0.01-0.08) K/mm3 Manual Slide Review Sodium (136-145) mEq/L Potassium (3.5-5.1) mEq/L Chloride (98-107) mEq/L Carbon Dioxide (21-32) mEq/L Anion Gap (5-15) BUN (7-18) mg/dL Creatinine (0.55-1.02) mg/dL Est Cr Clr Drug Dosing Estimated GFR (MDRD) (>60) mL/min BUN/Creatinine Ratio (14-18) Glucose (83-115) mg/dL Calcium (8.5-10.1) mg/dL Total Bilirubin (0.2-1.0) mg/dL AST (15-37) U/L ALT (14-59) U/L Alkaline Phosphatase (46-116) U/L Total Protein (6.4-8.2) g/dl Albumin (3.4-5.0) g/dl Globulin gm/dL Albumin/Globulin Ratio (1-2) Urine Color Yellow (Yellow) Urine Appearance Clear (Clear) Urine pH 6.0 (5.0-8.0) Ur Specific [place] 1.020 (1.005-1.030) Urine Protein Negative (Negative) Urine Glucose (UA) Negative (Negative) Urine Ketones Negative (Negative) Urine Occult Blood Negative (Negative) Urine Nitrite Negative (Negative) Urine Bilirubin Negative (Negative) Urine Urobilinogen 0.2 (0.2-1.0) Ur Leukocyte Esterase Negative (Negative) Urine RBC 0-5 (0-5) /hpf Urine WBC 0-5 (0-5) /hpf Ur Squamous Epith Cells 0-5 (0-5) /hpf Urine Bacteria Few (FEW) /hpf Urine Mucus Few (FEW) /hpf Blood Type Gel Antibody Screen Crossmatch Meds: Medications Generic Name Dose Route Start Last Admin Trade Name Freq PRN Reason Stop Dose Admin Sodium Chloride 1,000 mls @ 125 mls/hr 02/01/20 10:00 02/01/20 10:26 Normal Saline IV 125 mls/hr ASDIRECTED AYLA Administration Discontinued Medications Generic Name Dose Route Start Last Admin Trade Name Freq PRN Reason Stop Dose Admin Acetaminophen 975 mg 01/31/20 13:03 01/31/20 13:10 Tylenol PO 01/31/20 13:04 Not Given NOW ONE Hydromorphone HCl 0.5 mg 01/31/20 12:43 01/31/20 13:03 Dilaudid IVPUSH 01/31/20 12:44 0.5 mg ONETIME ONE Administration Sodium Chloride 1,000 mls @ 150 mls/hr 01/31/20 12:45 01/31/20 13:03 Normal Saline IV 150 mls/hr ASDIRECTED AYLA Administration Sodium Chloride 10 ml 01/31/20 12:43 01/31/20 12:55 Saline Flush FLUSH 10 ml ASDIRECTED PRN Administration Keep Vein Open Tramadol HCl 50 mg 01/31/20 17:48 01/31/20 17:51 Ultram PO 01/31/20 17:49 50 mg ONETIME ONE Administration Tramadol HCl Confirm 01/31/20 17:49 01/31/20 17:52 Ultram Administered 01/31/20 17:50 Not Given Dose 50 mg .ROUTE .STK-MED ONE Tramadol HCl 50 mg 02/01/20 14:06 02/01/20 14:14 Ultram PO 02/01/20 14:07 50 mg ONETIME ONE Administration - Re-Assessments/Exams Free Text/Narrative Re-Assessment/Exam: 01/31/20 13:26 Patient's hemoglobin was found a low be low at 6.6. Patient does have a history of myelodysplastic syndrome as well as macrocytic anemia. We will type and screen her and transfuse 1 unit of packed RBCs. 01/31/20 15:30 I been notified that patient has antibodies that must be verified prior to blood being able to be administered. Spoke with lab and they stated that they likely have these results in the morning and would be able to transfuse blood tomorrow. I called and talked to Dr. Alvarenga, the patient's oncologist. He stated that she would be okay to go home and have the blood transfusion as an outpatient tomorrow as she has been requiring these transfusions monthly. Patient's pain is well controlled at this time. Her vital signs have been stable in the ER. Last blood pressure was 131/56. Pulse 70s to 80s. Oxygen 91 to 94% on room air. Patient currently has a prescription for tramadol every 6 hours. We will discharge her home with instructions to continue that and follow-up with her primary care provider to get discuss ongoing management of her chronic pain. 01/31/20 1630 Cherise COFFEY called [facility] to give report. Had a notify the provider that the assisted living facility is not willing to accept patient back. I spoke with Britta, the us marketing director. She stated that the patient is requiring increased assistance over the last few weeks and that "we are not doing her any just is here ". I asked if she has had a follow-up with her primary care provider, and I was advised I am not in the last week. They have been "faxing [id number] ", but that no changes have been made in her medications recently. She has been on oxycodone in the past, however that made her confused. I asked if the process of arranging correction admission has been started. She stated that "the patient's daughter has been thinking about filling out papers for [facility] ". Discussed the case with the hospitalist, Dr. Juarez. She is not willing to accept the patient for chronic back pain or anemia as both are chronic problems. With regards to her hemoglobin, Dr. Bassett verbalized that she would be okay to do an outpatient transfusion tomorrow when the blood is available. Discussed with the patient how she gets around at [facility]. She states that she has a wheelchair, but they will not let her use it because they want her to ambulate. She states that they would just let me use the wheelchair I would get around okay. Case discussed with the director of the ER, ALEXX Laurent. She will make some phone calls and get back to me. 01/31/20 17:52 Spoke with Anastasiia COFFEY, as well as the director at [facility]. They are in the process of trying to get the patient admitted into [facility], however this likely not occur until tomorrow. Patient will return to [facility] and follow-up tomorrow for outpatient blood transfusion once the blood is available. I will increase her tramadol to 50 mg every 4 hours with the recommendation that she follow-up closely with Dr. Beckford for further management of her chronic pain. Discharge instructions as documented. 02/01/20 1600 Phone call received from Aileen COFFEY in PACU. Patient is in the facility receiving her blood transfusion that was ordered yesterday. Patient is requesting a dose of tramadol to be given prior to her transport back to [facility] as she is concerned the bus ride will worsen her back pain. Her last dose was about 1030. Verbal orders were given that she may receive an additional dose of tramadol 50 mg 4 hours after her previous dose. Departure - Departure Time of Disposition: 17:54 Disposition: Home, Self-Care 01 Condition: Fair Clinical Impression: Macrocytic anemia Chronic low back pain Qualifiers: Back pain laterality: midline Sciatica presence: unspecified whether sciatica present Qualified Code(s): M54.5 - Low back pain - Discharge Information *PRESCRIPTION DRUG MONITORING PROGRAM REVIEWED*: No *COPY OF PRESCRIPTION DRUG MONITORING REPORT IN PATIENT GRABIEL: No Prescriptions: traMADol [Ultram] 50 mg PO Q4H PRN #30 tab PRN Reason: Pain Instructions: Anemia, Chronic Pain, Adult Referrals: PCP,None [Primary Care Provider] - Forms: ED Department Discharge Additional Instructions: Loli was seen in the emergency department today for chronic low back pain. While in the ER, she received a single dose of Dilaudid 0.5 mg. This did help her pain. A work-up was done including blood work, chest x-ray, lumbar x-ray, and urinalysis. This work-up was overall unremarkable with the exception of her hemoglobin being low at 6.6. The patient has antibodies, therefore we were unable to transfuse blood in the emergency department today. We did speak with her oncologist, Dr. Bassett, and he advised that she can follow-up for an outpatient blood transfusion tomorrow. The order has been placed for the blood to be crossmatched. She will be contacted to arrange to return tomorrow to have the blood transfused. With regards to her pain, we have increased her tramadol to 50 mg every 4 hours. As we discussed, close follow-up with Dr. Beckford is essential to get her on a pain regimen that works well for her. I would recommend that she be allowed to use her wheelchair as much as possible until she can be placed in a longterm facility. Return to the ER as needed. Sepsis Event Note - Evaluation Sepsis Screening Result: No Definite Risk - Focused Exam Vital Signs: Vital Signs Temp Pulse Resp BP Pulse Ox 02/01/20 14:10 98.3 F 78 20 184/87 H 90 L 02/01/20 13:30 98.2 F 69 16 176/74 H 91 L 02/01/20 12:49 97.8 F 78 16 180/77 H 92 L 02/01/20 12:34 97.9 F 64 16 164/69 H 93 L 02/01/20 12:19 97.7 F 70 16 164/75 H 93 L 02/01/20 12:12 97.3 F 69 16 154/64 H 93 L 02/01/20 10:56 97.7 F 71 16 128/65 95 02/01/20 10:41 97.9 F 74 16 146/67 H 92 L 02/01/20 10:26 98.1 F 76 20 134/64 93 L Date Exam was Performed: 02/01/20 Time Exam was Performed: 20:35 - My Orders Last 24 Hours: My Active Orders 02/01/20 10:00 Sodium Chloride 0.9% [Normal Saline] 1,000 ml IV ASDIRECTED Blood Transfusion Reflex Orders [OM.PC] Per Unit Routine Transfuse Red Blood Cells [COMM] Routine - Assessment/Plan Last 24 Hours: My Active Orders 02/01/20 10:00 Sodium Chloride 0.9% [Normal Saline] 1,000 ml IV ASDIRECTED Blood Transfusion Reflex Orders [OM.PC] Per Unit Routine Transfuse Red Blood Cells [COMM] Routine
--- NOTE | 2020-01-31 14:02 | CR ---
Chest: Frontal view of the chest was obtained. Comparison: No prior chest x-ray, previous chest CT of 06/11/12. Heart is enlarged. Lungs show no acute parenchymal change. Two levels of vertebroplasties are seen within the lower thoracic spine. Previous left shoulder surgery is noted. Vascular calcification is seen. Impression: 1. Cardiomegaly. Other findings as noted above. 2. Nothing acute is seen. Diagnostic code #2 This report was dictated in MDT
--- NOTE | 2020-01-31 14:02 | CR ---
Lumbar spine: AP, lateral and cone-down lateral view centered to the lumbosacral junction were obtained. Comparison: Prior CT lumbar spine study of 01/09/20. Endplate concavities are seen throughout the lumbar spine which are stable from prior CT exam. Disc spaces are fairly well preserved. 2 levels of vertebroplasty are seen within the lower thoracic spine. Disc spaces are fairly well preserved. Scattered endplate osteophytes are seen. Scoliosis is noted. Vascular calcification is present. Impression: 1. Findings as noted above. 2. No significant change from previous CT lumbar spine study of 01/09/20. Diagnostic code #2 This report was dictated in MDT
[2020-01-31] MEDS ORDERED: traMADol 50 MG Tab PO ONE (17:48)
[2020-01-31] MEDS ORDERED: traMADol 50 MG Tab ONE (17:49)
[2020-02-01] MEDS ORDERED: Sodium Chloride 0.9% 1,000 ML IV SCH (10:00)
[2020-02-01] MEDS ORDERED: traMADol 50 MG Tab PO ONE (14:06)
[2020-02-01 14:37] VITALS: BP 184/87; PULSE 78
== END 2020-01-31 18:45 | disposition home or self-care (01) ==
LOC: JD.ED 11:54
DX: M54.5 Low back pain (principal); D53.9 Nutritional anemia, unspecified; I10 Essential (primary) hypertension; E03.9 Hypothyroidism, unspecified; J44.9 Chronic obstructive pulmonary disease, unspecified; Z86.73 Personal history of transient ischemic attack (TIA), and cerebral infarction without residual deficits; Z79.899 Other long term (current) drug therapy; Z91.041 Radiographic dye allergy status; Z88.8 Allergy status to other drugs, medicaments and biological substances
CPT/HCPCS: 36415; 71045; 72100; 80053; 81001; 85025; 86850; 86870; 86900; 86901; 86922; 96361; 96374; 99284; A9270; J1170; J7030; 36430; P9016

== ENCOUNTER 2020-02-17 14:41 | Inpatient (IN) | payer MEDICARE, MEDICAID ==
--- NOTE | 2020-02-17 16:07 | CT ---
CT cervical spine Technique: Multiple axial sections were obtained through the cervical spine. Reconstructed coronal and sagittal images were obtained. Findings: Prominent calcification within the posterior longitudinal ligament is seen posterior to C2, C3 and C4. Findings cause mild central canal stenosis. Vertebral body heights are maintained. Bony structures are osteopenic. No fracture is appreciated. No abnormal subluxation is seen. Mild degenerative change is scattered throughout the apophyseal joints. Mild scattered anterior endplate osteophytes are noted. Impression: 1. Degenerative change as noted above. 2. No acute fracture or abnormal subluxation is appreciated on CT study of the cervical spine. Diagnostic code #2 This report was dictated in MDT
--- NOTE | 2020-02-17 16:07 | CT ---
CT chest Technique: Multiple axial sections were obtained from above the lung apices inferiorly through the lung bases. Intravenous contrast not utilized. Comparison: Prior chest CT of 06/11/12. Findings: Atherosclerotic calcification is seen within the thoracic aorta and branch vessels. No aneurysm is seen. Extensive coronary artery calcification is noted. Heart is enlarged. Mediastinum and hilar region show no adenopathy or mass. No axillary adenopathy is identified. Lungs are clear with no acute parenchymal change. Slight pleural thickening and scarring is noted within both lung bases which are likely chronic. Bone window settings were reviewed which shows numerous compression deformities within the spine. 2 levels of vertebroplasty are noted within the thoracic spine. Kyphosis is present. No abnormal subluxation is seen. No discrete rib fracture is appreciated. Impression: 1. Numerous compression deformities within the spine which are an interval change from prior chest CT, but uncertain how many of these are old or acute. MRI would be needed to further age these findings if clinically indicated. 2. Other findings as noted above. 3. Nothing acute is appreciated. Diagnostic code #3 CT abdomen and pelvis Technique: Multiple axial sections were obtained from above the dome of the diaphragm inferiorly through the pubic symphysis. Intravenous and oral contrast not utilized. Comparison: No prior CT abdomen or pelvis exam is available. Findings: Liver shows no focal abnormality. Spleen appears within normal limits. Gallbladder contains no calcified gallstones. Aorta shows diffuse atherosclerotic change. Mild ectasia noted distally. Atherosclerotic calcification continues into the iliac vessels. No retroperitoneal adenopathy or mesenteric abnormalities are seen. Visualized portion of the pancreas shows no discrete abnormality. Adrenal glands show no discrete nodule. No free fluid within the abdomen or pelvis is seen. No pelvic mass or adenopathy is appreciated. Slight increased stool is seen throughout the colon. Bone window settings shows mild endplate concavities throughout the lumbar spine. No abnormal subluxation is seen. No definite acute fracture is appreciated. Impression: 1. Numerous findings as noted above. 2. Nothing acute is definitely appreciated on CT study of the abdomen and pelvis performed without IV or oral contrast. Diagnostic code #2 This report was dictated in MDT
--- NOTE | 2020-02-17 16:07 | CT ---
Head CT Technique: Multiple axial sections through the brain were obtained. Intravenous contrast was not utilized. Comparison: Prior head CT study of 01/24/20. Findings: Ventricles along with basal cisterns and sulci over the convexities are mildly prominent. Minimal areas of diminished density are noted within the periventricular white matter compatible with small vessel ischemic demyelination change. No other abnormal parenchymal densities are seen. No evidence of intracranial hemorrhage. No midline shift or mass-effect is appreciated. Bone window settings were reviewed. No acute calvarial abnormality is appreciated. Moderate mucosal thickening seen within the left sphenoid sinus. Other visualized paranasal sinuses show nothing acute. Mastoid sinuses are clear. Impression: 1. Moderate mucosal thickening with the left sphenoid sinus which appears chronic and stable from prior exam. 2. Senescent change as noted above which is also stable. 3. No acute intracranial abnormality is appreciated. Diagnostic code #2 This report was dictated in MDT
--- NOTE | 2020-02-17 16:22 | EDM.PDOC ---
ED HPI GENERAL MEDICAL PROBLEM - General Chief Complaint: General Stated Complaint: [facility] Time Seen by Provider: 02/17/20 14:42 Source of Information: Reports: Patient, EMS, Custodial Records History Limitations: Reports: No Limitations - History of Present Illness INITIAL COMMENTS - FREE TEXT/NARRATIVE: The patient presents by [facility] from [facility] for a fall. She is not sure why she fell. She said this morning about 9am she got up to use the bathroom and she fell. The patient does have trouble with mobility and at times they need a lift. She does not think she hit her head. She has a slight headache. She also has some neck pain. She has pain to her right lateral chest and right upper abdomen. She also has some upper back pain. She said she fell on her knees but she has no pain at this time. She has myelodysplastic syndrome and macrocytic anemia. She has required many transfusions. Onset: Sudden Duration: Hour(s): Location: Reports: Head, Neck, Chest, Abdomen, Back Quality: Reports: Sharp Severity: Moderate Improves with: Reports: None Worsens with: Reports: None Associated Symptoms: Reports: Chest Pain, Headaches. Denies: Cough, Fever/ Chills, Nausea/Vomiting, Shortness of Breath Right Thoracic Pain Score (Numeric/FACES): 5 - Related Data Allergies Allergy/AdvReac Type Severity Reaction Status Date / Time nickel Allergy Mild Rash Verified 01/31/20 12:06 acetaminophen [From Tylenol] Allergy Swollen Verified 01/31/20 13:16 Eyes aspirin Allergy Other Verified 01/31/20 12:06 Iodinated Contrast Media Allergy Shortness Verified 01/31/20 12:06 [Iodinated Contrast Media - of Breath IV Dye] Home Meds: Home Meds Ondansetron [Zofran] 1 tab PO Q4H PRN 08/12/17 [History] Emollient Base [Emollient] 1 applic TOP DAILY PRN 12/01/18 [History] Cyanocobalamin (Vitamin B-12) [Vitamin B-12] 500 mcg PO DAILY 04/14/19 [History] Deferasirox [Jadenu] 360 mg PO DAILY 04/14/19 [History] Lactose-Reduced Food [Ensure] 4 oz PO BID 04/14/19 [History] Lutein/Min/Vit C/Vit E Acetate [Ocuvite Lutein] 1 cap PO DAILY 04/14/19 [History ] Nitroglycerin [Nitrostat] 0.4 mg SL ASDIRECTED PRN 04/14/19 [History] Tamsulosin [Flomax] 0.4 mg PO DAILY 04/14/19 [History] Biotin 5,000 mcg PO DAILY 01/09/20 [History] Carboxymethylcellulose Sodium [Artificial Tears] 1 drop EYEBOTH DAILY PRN [History] Sennosides/Docusate Sodium [Senna-S] 1 tab PO DAILY PRN 01/09/20 [History] Levothyroxine 75 mcg PO ACBREAKFAST #30 tab 01/14/20 [Rx] amLODIPine [Norvasc] 5 mg PO DAILY #30 tablet 01/14/20 [Rx] Baclofen 5 mg PO QID 01/31/20 [History] Fluticasone Propionate [Flonase] 1 spray NASBOTH BID 01/31/20 [History] Furosemide [Lasix] 40 mg PO DAILY 01/31/20 [History] polyethylene glycoL 3350 [MiraLAX] 17 gm PO DAILY 01/31/20 [History] traMADol [Ultram] 50 mg PO Q4H PRN #30 tab 01/31/20 [Rx] fentaNYL [Fentanyl] 1 each TD Q72H 02/17/20 [History] hydrOXYzine HCL [Atarax] 25 mg PO Q6H PRN 02/17/20 [History] Past Medical History HEENT History: Reports: Glaucoma, Impaired Vision, Other (See Below) Other HEENT History: glaucoma, dentures Full upper and partial lower, glasses Cardiovascular History: Reports: CAD, Hypertension, Other (See Below) Other Cardiovascular History: chest pain, edema Respiratory History: Reports: COPD, SOB, Other (See Below) Other Respiratory History: emphysema Gastrointestinal History: Reports: Chronic Constipation, Other (See Below) Other Gastrointestinal History: abdominal pain Genitourinary History: Reports: UTI, Recurrent, Other (See Below) Other Genitourinary History: urgency [employer] History: Reports: Musculoskeletal History: Reports: Osteoporosis, RA, Other (See Below) Other Musculoskeletal History: osteopenia Neurological History: Reports: CVA, TIA, Other (See Below) Other Neuro History: cerebrovascular disease Psychiatric History: Reports: Anxiety, Depression Other Psychiatric History: fatigue Endocrine/Metabolic History: Reports: Hypothyroidism, Vitamin D Deficiency, Other (See Below) Other Endocrine/Metabolic History: hyperglycemia Hematologic History: Reports: Anemia, Other (See Below) Other Hematologic History: hyponatremia, myelodysplastic syndrome, macrocytic anemia Immunologic History: Reports: None Oncologic (Cancer) History: Reports: Other (See Below) Other Oncologic History: Myodysplastic syndrome Dermatologic History: Reports: Other (See Below) Other Dermatologic History: Excessive dry skin - Infectious Disease History Infectious Disease History: Reports: Chicken Pox, Influenza, Measles - Past Surgical History Head Surgeries/Procedures: Reports: None HEENT Surgical History: Reports: Cataract Surgery Cardiovascular Surgical History: Reports: Carotid Endarterectomy, Other (See Below) Other Cardiovascular Surgeries/Procedures: celiac artery stent Respiratory Surgical History: Reports: None GI Surgical History: Reports: Appendectomy Female Surgical History: Reports: Tubal Ligation Neurological Surgical History: Reports: None Musculoskeletal Surgical History: Reports: Other (See Below) Other Musculoskeletal Surgeries/Procedures:: compresssion fracture, L carpal tunnel surgery, kyphoplasty Oncologic Surgical History: Reports: Bone Marrow Aspiration, Other (See Below) Other Oncologic Surgeries/Procedures: several Social & Family History - Family History Family Medical History: Noncontributory - Tobacco Use Smoking Status *Q: Never Smoker - Caffeine Use Caffeine Use: Reports: Coffee Caffeine Use Comment: 10 cups a day - Recreational Drug Use Recreational Drug Use: No ED ROS GENERAL - Review of Systems Review Of Systems: See Below Constitutional: Reports: No Symptoms HEENT: Reports: No Symptoms Respiratory: Reports: No Symptoms Cardiovascular: Reports: Chest Pain Endocrine: Reports: No Symptoms GI/Abdominal: Reports: Abdominal Pain, Nausea, Vomiting : Reports: No Symptoms Musculoskeletal: Reports: Neck Pain, Back Pain ED EXAM, GENERAL - Physical Exam Exam: See Below Exam Limited By: No Limitations General Appearance: Alert, No Apparent Distress Ears: Normal External Exam Nose: Normal Inspection Head: Atraumatic, Normocephalic Neck: Tender Midline (Mild) Respiratory/Chest: No Respiratory Distress, Lungs Clear, Normal Breath Sounds Cardiovascular: Regular Rate, Rhythm, No Edema, No Murmur GI/Abdominal: Soft, Non-Tender, No Organomegaly, No Mass Back Exam: Other (Pain upon palpation to the upper back) Extremities: Other (No pain upon palpation to both knees. Old appearing injuries to both knees) EKG INTERPRETATION EKG Date: 02/17/20 Time: 16:24 Rhythm: NSR Rate (Beats/Min): 95 Carney: LAD-Left Carney Deviation P-Wave: Present QRS: Normal ST-T: Normal QT: Normal PA/PQ Interval: 1st degree HB EKG Interpretation Comments: PVC Course - Vital Signs Last Recorded V/S: Last Vital Signs Temp 97.8 F 02/17/20 14:54 Pulse 92 02/17/20 14:54 Resp 16 02/17/20 14:54 BP 129/72 02/17/20 14:54 Pulse Ox 98 02/17/20 14:54 - Orders/Labs/Meds Orders: Active Orders 24 hr Category Date Time Status Cardiac Monitoring [RC] . DIRECTED Care 02/17/20 14:48 Active EKG Documentation Completion [RC] ASDIRECTED Care 02/17/20 16:19 Active TROPONIN I [CHEM] Stat Lab 02/17/20 16:52 Ordered EKG 12 Lead [EK] Stat Ther 02/17/20 16:18 Ordered Labs: Laboratory Tests 02/17/20 02/17/20 02/17/20 Range/Units 15:08 15:08 15:40 WBC 7.37 (3.98-10.04) K/mm3 RBC 2.81 L (3.98-5.22) M/mm3 Hgb 8.4 L D (11.2-15.7) gm/dl Hct 27.5 L (34.1-44.9) % MCV 97.9 H D (79.4-94.8) fl MCH 29.9 (25.6-32.2) pg MCHC 30.5 L (32.2-35.5) g/dl RDW Std Deviation 73.6 H (36.4-46.3) fL Plt Count 413 H (182-369) K/mm3 MPV 9.9 (9.4-12.3) fl Neut % (Auto) 79.8 H (34.0-71.1) % Lymph % (Auto) 10.6 L (19.3-51.7) % [place] % (Auto) 8.3 (4.7-12.5) % Eos % (Auto) 0.4 L (0.7-5.8) Baso % (Auto) 0.1 (0.1-1.2) % Neut # (Auto) 5.88 (1.56-6.13) K/mm3 Lymph # (Auto) 0.78 L (1.18-3.74) K/mm3 [place] # (Auto) 0.61 H (0.24-0.36) K/mm3 Eos # (Auto) 0.03 L (0.04-0.36) K/mm3 Baso # (Auto) 0.01 (0.01-0.08) K/mm3 Manual Slide Review Abnormal smear Sodium 140 (136-145) mEq/L Potassium 4.1 (3.5-5.1) mEq/L Chloride 101 (98-107) mEq/L Carbon Dioxide 29 (21-32) mEq/L Anion Gap 14.1 (5-15) BUN 63 H D (7-18) mg/dL Creatinine 1.7 H (0.55-1.02) mg/dL Est Cr Clr Drug Dosing TNP Estimated GFR (MDRD) 29 (>60) mL/min BUN/Creatinine Ratio 37.1 H (14-18) Glucose 135 H (83-115) mg/dL Calcium 8.2 L (8.5-10.1) mg/dL Total Bilirubin 0.5 (0.2-1.0) mg/dL AST 26 (15-37) U/L ALT 41 (14-59) U/L Alkaline Phosphatase 163 H (46-116) U/L Total Protein 6.7 (6.4-8.2) g/dl Albumin 3.4 (3.4-5.0) g/dl Globulin 3.3 gm/dL Albumin/Globulin Ratio 1.0 (1-2) Urine Color Light yellow (Yellow) Urine Appearance Clear (Clear) Urine pH 6.0 (5.0-8.0) Ur Specific [place]buck 1.025 (1.005-1.030) Urine Protein Negative (Negative) Urine Glucose (UA) Negative (Negative) Urine Ketones Negative (Negative) Urine Occult Blood Negative (Negative) Urine Nitrite Negative (Negative) Urine Bilirubin Negative (Negative) Urine Urobilinogen 0.2 (0.2-1.0) Ur Leukocyte Esterase Negative (Negative) Urine RBC 0-5 (0-5) /hpf Urine WBC 0-5 (0-5) /hpf Ur Squamous Epith Cells 0-5 (0-5) /hpf Urine Bacteria Occasional (FEW) /hpf Urine Mucus Not seen (FEW) /hpf - Re-Assessments/Exams Free Text/Narrative Re-Assessment/Exam: 02/17/20 16:[address] of her head, cervical spine, head, chest abdomen and pelvis, labs and UA. The CT of her head shows moderate mucosal thickening with the left sphenoid sinus which appears chronic and stable from prior exam. Senescent change as noted above which is also stable. No acute intracranial abnormality is appreciated. CT of her cervical spine shows degenerative change. No acute fracture or abnormal subluxation is appreciated on CT study of the cervical spine. The CT of her chest shows numerous compression deformities within the spine which are an interval change from prior chest CT, but uncertain how many of these are old or acute. MRI would be needed to further age these findings if clinically indicated. The CT of her abdomen shows numerous findings. Nothing acute is definitely appreciated on CT study of the abdomen and pelvis performed without IV or oral contrast. The patient has been having runs of V-tach. I did an EKG and it shows a NSR, 1st degree HB and a PVC. We did not catch one of these runs on the EKG but the monitor showed up to 10 beats. 02/17/20 16:[address] Marti our hospitalist and he agreed to the admission. He did request a troponin. I have added that onto the labs. Departure - Departure Time of Disposition: 16:55 Disposition: Admitted As Inpatient 64 Condition: Poor Clinical Impression: Run of ventricular premature complexes, Renal insufficiency, Hypoxia, Confusion , Myelodysplastic syndrome Fall Qualifiers: Encounter type: initial encounter Qualified Code(s): W19.XXXA - Unspecified fall, initial encounter Compression fx, thoracic spine Qualifiers: Encounter type: initial encounter Thoracic vertebra fracture level: unspecified thoracic vertebra Qualified Code(s): S22.000A - Wedge compression fracture of unspecified thoracic vertebra, initial encounter for closed fracture Emphysema of lung Qualifiers: Emphysema type: unspecified Qualified Code(s): J43.9 - Emphysema, unspecified Anemia Qualifiers: Anemia type: other cause Other causes of anemia: other cause, not classified Qualified Code(s): D64.89 - Other specified anemias - Discharge Information Referrals: PCP,None [Primary Care Provider] - Forms: ED Department Discharge Sepsis Event Note - Evaluation Sepsis Screening Result: No Definite Risk - Focused Exam Vital Signs: Vital Signs Temp Pulse Resp BP Pulse Ox 02/17/20 14:54 97.8 F 92 16 129/72 98 Date Exam was Performed: 02/17/20 Time Exam was Performed: 16:53 - My Orders Last 24 Hours: My Active Orders 02/17/20 14:48 Cardiac Monitoring [RC] . DIRECTED 02/17/20 16:18 EKG 12 Lead [EK] Stat 02/17/20 16:19 EKG Documentation Completion [RC] ASDIRECTED 02/17/20 16:52 TROPONIN I [CHEM] Stat - Assessment/Plan Last 24 Hours: My Active Orders 02/17/20 14:48 Cardiac Monitoring [RC] . DIRECTED 02/17/20 16:18 EKG 12 Lead [EK] Stat 02/17/20 16:19 EKG Documentation Completion [RC] ASDIRECTED 02/17/20 16:52 TROPONIN I [CHEM] Stat
[2020-02-17] MEDS ORDERED: Acetaminophen 650 MG Supp RECTAL PRN (17:42)
[2020-02-17] MEDS ORDERED: hydrALAZINE 20 MG/ML SDV IVPUSH PRN (17:42)
[2020-02-17] MEDS ORDERED: OLANZapine 10 MG Vial IM PRN (17:42)
[2020-02-17] MEDS ORDERED: Acetaminophen 325 MG Tab PO PRN (17:42)
[2020-02-17] MEDS ORDERED: Albuterol 0.083% 2.5 MG/3 ML Neb Soln NEB PRN (17:42)
[2020-02-17] MEDS ORDERED: Nitroglycerin 0.4 MG Tab.SL SL PRN (17:42)
[2020-02-17] MEDS ORDERED: cefTRIAXone 1 GM in Sodium Chloride 0.9% 100 ML IV SCH (17:45)
[2020-02-17] MEDS ORDERED: Sodium Chloride 0.9% 1,000 ML IV SCH (17:45)
[2020-02-17] MEDS ORDERED: CARBOXYMETHYLCELLULOSE SODIUM EYEBOTH PRN (18:08)
--- NOTE | 2020-02-17 18:28 | PCM.HP.2 ---
H&P History of Present Illness - General Date of Service: 02/17/20 Admit Problem/Dx: Admission Diagnosis/Problem Admission Diagnosis/Problem acute hypoxemic respiratory failure and confusion Source of Information: Other (ED Staff) - History of Present Illness Initial Comments - Free Text/Narative: Medical history: Hypertension Hypothyroidism Chronic pain syndrome Arthritis History Macrocytic anemia Mild dementia History of re-current falls History of first-degree AV block Mrs. Hernández 1-year-old female, resident of intermediate with past medical history as described above. The patient was brought in today for evaluation of increased confusion, reports of abnormal heartbeats and of recurrent falls. It was reported by ED staff that the patient was appeared to be more confused today afternoon, which was noted by intermediate staff at the same time, patient was found to be somewhat hypoxic, as reported by EMS patient was placed on oxygen in route to the ED. No obvious reports of chest pain or palpitations. Patient the ED, the patient's oxygen saturation on in the low 70s and 82 patient was placed on 2 L of oxygen that did improve patient's oxygen saturation. Patient was also noted with a bruise involving the left index finger. When patient was questioned, reported while sitting on her wheelchair she bruised her hand. Was woke up there was done to the patient in the ED indicated BC 7.3, H&H 8.4/27.5, platelets 413, sodium/potassium 141/4.1 chloride 101 CO2 29 BUN/creatinine 63/1.7 with baseline creatinine of 1.5-1.8, head CT, chest x-ray, as well as CT scan of abdomen pelvis did not indicate any obvious acute findings, UA negative. But EGD was done to the patient, was concerning for new onset paroxysmal atrial fibrillation and while in the ED, patient had multiple episodes of nonsustained ventricular tachycardia. Given this presentation, the patient will be mated to ICU for close monitoring. Onset of Symptoms: Reports: Today Right Thoracic Pain Score (Numeric/FACES): 5 - Related Data Allergies/Adverse Reactions: Allergies Allergy/AdvReac Type Severity Reaction Status Date / Time nickel Allergy Mild Rash Verified 01/31/20 12:06 acetaminophen [From Tylenol] Allergy Swollen Verified 01/31/20 13:16 Eyes aspirin Allergy Other Verified 01/31/20 12:06 Iodinated Contrast Media Allergy Shortness Verified 01/31/20 12:06 [Iodinated Contrast Media - of Breath IV Dye] Home Medications: Home Meds Ondansetron [Zofran] 1 tab PO Q4H PRN 08/12/17 [History] Emollient Base [Emollient] 1 applic TOP DAILY PRN 12/01/18 [History] Cyanocobalamin (Vitamin B-12) [Vitamin B-12] 500 mcg PO DAILY 04/14/19 [History] Deferasirox [Jadenu] 360 mg PO DAILY 04/14/19 [History] Lactose-Reduced Food [Ensure] 4 oz PO BID 04/14/19 [History] Lutein/Min/Vit C/Vit E Acetate [Ocuvite Lutein] 1 cap PO DAILY 04/14/19 [History ] Nitroglycerin [Nitrostat] 0.4 mg SL ASDIRECTED PRN 04/14/19 [History] Tamsulosin [Flomax] 0.4 mg PO DAILY 04/14/19 [History] Biotin 5,000 mcg PO DAILY 01/09/20 [History] Carboxymethylcellulose Sodium [Artificial Tears] 1 drop EYEBOTH DAILY PRN [History] Sennosides/Docusate Sodium [Senna-S] 1 tab PO DAILY PRN 01/09/20 [History] Levothyroxine 75 mcg PO ACBREAKFAST #30 tab 01/14/20 [Rx] amLODIPine [Norvasc] 5 mg PO DAILY #30 tablet 01/14/20 [Rx] Baclofen 5 mg PO QID 01/31/20 [History] Fluticasone Propionate [Flonase] 1 spray NASBOTH BID 01/31/20 [History] Furosemide [Lasix] 40 mg PO DAILY 01/31/20 [History] polyethylene glycoL 3350 [MiraLAX] 17 gm PO DAILY 01/31/20 [History] traMADol [Ultram] 50 mg PO Q4H PRN #30 tab 01/31/20 [Rx] fentaNYL [Fentanyl] 1 each TD Q72H 02/17/20 [History] hydrOXYzine HCL [Atarax] 25 mg PO Q6H PRN 02/17/20 [History] Past Medical History HEENT History: Reports: Glaucoma, Impaired Vision, Other (See Below) Other HEENT History: glaucoma, dentures Full upper and partial lower, glasses Cardiovascular History: Reports: CAD, Hypertension, Other (See Below) Other Cardiovascular History: chest pain, edema Respiratory History: Reports: COPD, SOB, Other (See Below) Other Respiratory History: emphysema Gastrointestinal History: Reports: Chronic Constipation, Other (See Below) Other Gastrointestinal History: abdominal pain Genitourinary History: Reports: UTI, Recurrent, Other (See Below) Other Genitourinary History: urgency [employer]ATIVE History: Reports: Musculoskeletal History: Reports: Osteoporosis, RA, Other (See Below) Other Musculoskeletal History: osteopenia Neurological History: Reports: CVA, TIA, Other (See Below) Other Neuro History: cerebrovascular disease Psychiatric History: Reports: Anxiety, Depression Other Psychiatric History: fatigue Endocrine/Metabolic History: Reports: Hypothyroidism, Vitamin D Deficiency, Other (See Below) Other Endocrine/Metabolic History: hyperglycemia Hematologic History: Reports: Anemia, Other (See Below) Other Hematologic History: hyponatremia, myelodysplastic syndrome, macrocytic anemia Immunologic History: Reports: None Oncologic (Cancer) History: Reports: Other (See Below) Other Oncologic History: Myodysplastic syndrome Dermatologic History: Reports: Other (See Below) Other Dermatologic History: Excessive dry skin - Infectious Disease History Infectious Disease History: Reports: Chicken Pox, Influenza, Measles - Past Surgical History Head Surgeries/Procedures: Reports: None HEENT Surgical History: Reports: Cataract Surgery Cardiovascular Surgical History: Reports: Carotid Endarterectomy, Other (See Below) Other Cardiovascular Surgeries/Procedures: celiac artery stent Respiratory Surgical History: Reports: None GI Surgical History: Reports: Appendectomy Female Surgical History: Reports: Tubal Ligation Neurological Surgical History: Reports: None Musculoskeletal Surgical History: Reports: Other (See Below) Other Musculoskeletal Surgeries/Procedures:: compresssion fracture, L carpal tunnel surgery, kyphoplasty Oncologic Surgical History: Reports: Bone Marrow Aspiration, Other (See Below) Other Oncologic Surgeries/Procedures: several Social & Family History - Family History Family Medical History: Noncontributory - Tobacco Use Smoking Status *Q: Never Smoker - Caffeine Use Caffeine Use: Reports: Coffee Caffeine Use Comment: 10 cups a day - Recreational Drug Use Recreational Drug Use: No H&P Review of Systems - Review of Systems: Review Of Systems: See Below Review of Systems Comment:: Appears slightly confused, which I believe is due to the patient's dementia, but the patient was able to articulate no chest pain, denied obvious shortness of breath denied any recent fevers or chills. Denies any obvious nausea vomiting no abdominal pain but the patient reported some urinary frequency. Exam - Exam Exam: See Below - Vital Signs Vital Signs: Last Vital Signs Temp 97.8 F 02/17/20 14:54 Pulse 92 02/17/20 14:54 Resp 16 02/17/20 14:54 BP 129/72 02/17/20 14:54 Pulse Ox 98 02/17/20 14:54 Weight: 94 lb - Exam Physical Exam Comments:: General: The patient is awake, alert and oriented x2, appears slightly confused. Agitated. HEENT: Head atraumatic pupils equally round reactive to light oral mucosa dry no signs of pharyngeal inflammation. Neck: supple no increased J.VD Chest: Patient noted with diminished breath sounds bilaterally but no obvious wheezes, occasional crepitations noted in the bases. Heart: Normal S1-S2 heart sounds, systolic murmur noted, but no pre-. Abdomen: Soft protuberant otherwise nontender slightly distended bowel sounds present. SKIN: Notable multiple skin bruises, in both upper and lower extremities, patient's left index finger also noted with a bruise recent skin tear. Extremities: Patient noted with 2+ pitting edema bilaterally no varicose veins, palpations of calves nontender. - Patient Data Lab Results Last 24 hrs: Laboratory Results - last 24 hr 02/17/20 02/17/20 02/17/20 Range/Units 15:08 15:08 15:08 WBC 7.37 (3.98-10.04) K/mm3 RBC 2.81 L (3.98-5.22) M/mm3 Hgb 8.4 L D (11.2-15.7) gm/dl Hct 27.5 L (34.1-44.9) % MCV 97.9 H D (79.4-94.8) fl MCH 29.9 (25.6-32.2) pg MCHC 30.5 L (32.2-35.5) g/dl RDW Std Deviation 73.6 H (36.4-46.3) fL Plt Count 413 H (182-369) K/mm3 MPV 9.9 (9.4-12.3) fl Neut % (Auto) 79.8 H (34.0-71.1) % Lymph % (Auto) 10.6 L (19.3-51.7) % [place] % (Auto) 8.3 (4.7-12.5) % Eos % (Auto) 0.4 L (0.7-5.8) Baso % (Auto) 0.1 (0.1-1.2) % Neut # (Auto) 5.88 (1.56-6.13) K/mm3 Lymph # (Auto) 0.78 L (1.18-3.74) K/mm3 [place] # (Auto) 0.61 H (0.24-0.36) K/mm3 Eos # (Auto) 0.03 L (0.04-0.36) K/mm3 Baso # (Auto) 0.01 (0.01-0.08) K/mm3 Manual Slide Review Abnormal smear Sodium 140 (136-145) mEq/L Potassium 4.1 (3.5-5.1) mEq/L Chloride 101 (98-107) mEq/L Carbon Dioxide 29 (21-32) mEq/L Anion Gap 14.1 (5-15) BUN 63 H D (7-18) mg/dL Creatinine 1.7 H (0.55-1.02) mg/dL Est Cr Clr Drug Dosing TNP Estimated GFR (MDRD) 29 (>60) mL/min BUN/Creatinine Ratio 37.1 H (14-18) Glucose 135 H (83-115) mg/dL Calcium 8.2 L (8.5-10.1) mg/dL Total Bilirubin 0.5 (0.2-1.0) mg/dL AST 26 (15-37) U/L ALT 41 (14-59) U/L Alkaline Phosphatase 163 H (46-116) U/L Troponin I < 0.017 (0.00-0.056) ng/mL Total Protein 6.7 (6.4-8.2) g/dl Albumin 3.4 (3.4-5.0) g/dl Globulin 3.3 gm/dL Albumin/Globulin Ratio 1.0 (1-2) Urine Color (Yellow) Urine Appearance (Clear) Urine pH (5.0-8.0) Ur Specific [place] (1.005-1.030) Urine Protein (Negative) Urine Glucose (UA) (Negative) Urine Ketones (Negative) Urine Occult Blood (Negative) Urine Nitrite (Negative) Urine Bilirubin (Negative) Urine Urobilinogen (0.2-1.0) Ur Leukocyte Esterase (Negative) Urine RBC (0-5) /hpf Urine WBC (0-5) /hpf Ur Squamous Epith Cells (0-5) /hpf Urine Bacteria (FEW) /hpf Urine Mucus (FEW) /hpf 02/17/20 Range/Units 15:40 WBC (3.98-10.04) K/mm3 RBC (3.98-5.22) M/mm3 Hgb (11.2-15.7) gm/dl Hct (34.1-44.9) % MCV (79.4-94.8) fl MCH (25.6-32.2) pg MCHC (32.2-35.5) g/dl RDW Std Deviation (36.4-46.3) fL Plt Count (182-369) K/mm3 MPV (9.4-12.3) fl Neut % (Auto) (34.0-71.1) % Lymph % (Auto) (19.3-51.7) % [place] % (Auto) (4.7-12.5) % Eos % (Auto) (0.7-5.8) Baso % (Auto) (0.1-1.2) % Neut # (Auto) (1.56-6.13) K/mm3 Lymph # (Auto) (1.18-3.74) K/mm3 [place] # (Auto) (0.24-0.36) K/mm3 Eos # (Auto) (0.04-0.36) K/mm3 Baso # (Auto) (0.01-0.08) K/mm3 Manual Slide Review Sodium (136-145) mEq/L Potassium (3.5-5.1) mEq/L Chloride (98-107) mEq/L Carbon Dioxide (21-32) mEq/L Anion Gap (5-15) BUN (7-18) mg/dL Creatinine (0.55-1.02) mg/dL Est Cr Clr Drug Dosing Estimated GFR (MDRD) (>60) mL/min BUN/Creatinine Ratio (14-18) Glucose (83-115) mg/dL Calcium (8.5-10.1) mg/dL Total Bilirubin (0.2-1.0) mg/dL AST (15-37) U/L ALT (14-59) U/L Alkaline Phosphatase (46-116) U/L Troponin I (0.00-0.056) ng/mL Total Protein (6.4-8.2) g/dl Albumin (3.4-5.0) g/dl Globulin gm/dL Albumin/Globulin Ratio (1-2) Urine Color Light yellow (Yellow) Urine Appearance Clear (Clear) Urine pH 6.0 (5.0-8.0) Ur Specific [place] 1.025 (1.005-1.030) Urine Protein Negative (Negative) Urine Glucose (UA) Negative (Negative) Urine Ketones Negative (Negative) Urine Occult Blood Negative (Negative) Urine Nitrite Negative (Negative) Urine Bilirubin Negative (Negative) Urine Urobilinogen 0.2 (0.2-1.0) Ur Leukocyte Esterase Negative (Negative) Urine RBC 0-5 (0-5) /hpf Urine WBC 0-5 (0-5) /hpf Ur Squamous Epith Cells 0-5 (0-5) /hpf Urine Bacteria Occasional (FEW) /hpf Urine Mucus Not seen (FEW) /hpf Result Diagrams: 02/17/20 15:08 02/17/20 15:08 Sepsis Event Note - Evaluation Sepsis Screening Result: No Definite Risk - Focused Exam Vital Signs: Vital Signs Temp Pulse Resp BP Pulse Ox 02/17/20 14:54 97.8 F 92 16 129/72 98 Date Exam was Performed: 02/17/20 Time Exam was Performed: 18:22 Problem List Initiated/Reviewed/Updated: Yes Orders Last 24hrs: Active Orders 24 hr Category Date Time Status Admission Status [Patient Status] [ADT] Routine ADT 02/17/20 17:32 Active Patient Status [ADT] Routine ADT 02/17/20 17:42 Active Antiembolic Devices [RC] PER UNIT ROUTINE Care 02/17/20 17:43 Active Aspiration Precautions [RC] ASDIRECTED Care 02/17/20 17:42 Active Cardiac Monitoring [RC] . DIRECTED Care 02/17/20 14:48 Active Cardiac Monitoring [RC] CONTINUOUS Care 02/17/20 17:42 Active Communication Order [RC] ASDIRECTED Care 02/17/20 17:42 Active Communication Order [RC] PRN Care 02/17/20 17:42 Active EKG Documentation Completion [RC] AM Care 02/18/20 07:00 Active EKG Documentation Completion [RC] ASDIRECTED Care 02/17/20 16:19 Active Height and Weight [RC] DAILY Care 02/17/20 17:42 Active Height and Weight [RC] DAILY Care 02/17/20 17:42 Active Notify Provider Vital Signs [RC] ASDIRECTED Care 02/17/20 17:42 Active Notify Provider [RC] PRN Care 02/17/20 17:42 Active Oxygen Therapy [RC] ASDIRECTED Care 02/17/20 17:42 Active RT BiPAP/CPAP [RC] ASDIRECTED Care 02/17/20 17:42 Inactive Turn, Cough, Deep Breathe [RC] PER UNIT ROUTINE Care 02/17/20 17:47 Inactive Vital Signs [RC] PER UNIT ROUTINE Care 02/17/20 17:42 Active PT Evaluation and Treatment [CONS] Routine Cons 02/17/20 17:42 Active 2 Gram Sodium Diet [DIET] Diet 02/17/20 Breakfast Active Fingers Thumb Lt FA [CR] Stat Exams 02/17/20 17:01 Taken CBC WITH AUTO DIFF [HEME] AM Lab 02/18/20 05:11 Ordered CKMB [CHEM] Q6H Lab 02/17/20 17:55 Ordered CKMB [CHEM] Q6H Lab 02/17/20 23:55 Ordered COMPREHENSIVE METABOLIC PN,CMP [CHEM] AM Lab 02/18/20 05:11 Ordered CREATINE KINASE,CK [CHEM] Q6H Lab 02/17/20 17:55 Ordered CREATINE KINASE,CK [CHEM] Q6H Lab 02/17/20 23:55 Ordered LIPID PANEL [CHEM] AM Lab 02/18/20 05:11 Ordered PRO B-TYPE NATRIUR PEPT,BNPPRO [CHEM] AM Lab 02/18/20 05:11 Ordered TROPONIN I [CHEM] Routine Lab 02/17/20 17:55 Ordered TSH [CHEM] AM Lab 02/18/20 05:11 Ordered UA RFX THERESA AND CULT IF INDIC [URIN] Routine Lab 02/17/20 17:42 Ordered Albuterol [Proventil Neb Soln] Med 02/17/20 17:42 Active 2.5 mg NEB Q2H PRN Biotin [Biotin] Med 02/18/20 09:00 Active 5,000 mcg PO DAILY Carboxymethylcellulose Sodium [Artificial Tears] Med 02/17/20 18:08 Active 1 drop EYEBOTH DAILY PRN Cyanocobalamin (Vitamin B12) [Vitamin B12] Med 02/18/20 09:00 Active 500 mcg PO DAILY Deferasirox [Jadenu] Med 02/18/20 09:00 Active 360 mg PO DAILY Docusate Sodium/Sennosides [Senna Plus] Med 02/17/20 21:00 Active 2 tab PO BID Famotidine [Pepcid] Med 02/17/20 18:00 Active 20 mg PO QPM Heparin Sodium Med 02/18/20 09:00 Active 5,000 units SUBCUT Q12H Lactose-Reduced Food [Ensure] Med 02/17/20 21:00 Active 4 oz PO BID Levothyroxine Med 02/18/20 06:00 Active 75 mcg PO ACBREAKFAST Lutein/Min/Vit C/Vit E Acetate Med 02/18/20 09:00 Active 1 cap PO DAILY Magnesium Sulfate/D5W [Magnesium Sulfate in D5W 100 Med 02/17/20 17:45 Active Premix] 1 gm Premix Bag 1 bag IV Q1H Metoprolol Succinate [Toprol XL] Med 02/17/20 21:00 Active 12.5 mg PO BID Morphine Med 02/17/20 17:42 Active 1 mg IVPUSH Q4H PRN Nitroglycerin [Nitrostat] Med 02/17/20 17:42 Active 0.4 mg SL Q5M PRN OLANZapine [ZyPREXA] Med 02/17/20 17:42 Active 5 mg IM Q8H PRN Ondansetron [Zofran] Med 02/17/20 17:42 Active 4 mg IVPUSH Q4H PRN Simvastatin [Zocor] Med 02/17/20 21:00 Active 20 mg PO BEDTIME Sodium Chloride 0.9% [Normal Saline] 1,000 ml Med 02/17/20 17:45 Active IV ASDIRECTED Sucralfate [Carafate] Med 02/17/20 21:00 Active 2 gm PO BEDTIME amLODIPine [Norvasc] Med 02/18/20 09:00 Active 5 mg PO DAILY cefTRIAXone [Rocephin] 1 gm Med 02/17/20 17:45 Active Sodium Chloride 0.9% [Normal Saline] 100 ml IV Q24H hydrALAZINE [Apresoline] Med 02/17/20 17:42 Active 10 mg IVPUSH Q6H PRN hydrOXYzine HCL [Atarax] Med 02/17/20 18:08 Active 25 mg PO Q6H PRN polyethylene glycoL 3350 [MiraLAX] Med 02/18/20 09:00 Active 17 gm PO DAILY Antiembolic Hose [OM.PC] Routine Oth 02/17/20 17:42 Ordered Resuscitation Status Routine Resus Stat 02/17/20 17:42 Ordered EKG 12 Lead [EK] Stat Ther 02/17/20 16:18 Ordered Medication Orders Albuterol (Proventil Neb Soln) 2.5 mg NEB Q2H PRN PRN Reason: Wheezing Amlodipine Besylate (Norvasc) 5 mg PO DAILY [facility] Cyanocobalamin (Vitamin B12) 500 mcg PO DAILY [facility] Famotidine (Pepcid) 20 mg PO QPM [facility] Heparin Sodium (Porcine) (Heparin Sodium) 5,000 units SUBCUT Q12H [facility] Hydralazine HCl (Apresoline) 10 mg IVPUSH Q6H PRN PRN Reason: Hypertension Hydroxyzine HCl (Atarax) 25 mg PO Q6H PRN PRN Reason: Anxiety Sodium Chloride (Normal Saline) 1,000 mls @ 30 mls/hr IV ASDIRECTED [facility] Ceftriaxone Sodium 1 gm/ (Sodium Chloride) 100 mls @ 200 mls/hr IV Q24H [facility] Magnesium Sulfate/Dextrose 1 (gm/ Premix) 100 mls @ 100 mls/hr IV Q1H [facility] Stop: 02/17/20 21:44 Levothyroxine Sodium (Levothyroxine) 75 mcg PO ACBREAKFAST [facility] Metoprolol Succinate (Toprol Xl) 12.5 mg PO BID [facility] Morphine Sulfate (Morphine) 1 mg IVPUSH Q4H PRN PRN Reason: Pain (severe 7-10) Nitroglycerin (Nitrostat) 0.4 mg SL Q5M PRN PRN Reason: Chest Pain Non-Formulary Medication (Biotin [Biotin]) 5,000 mcg PO DAILY [facility] Non-Formulary Medication (Carboxymethylcellulose Sodium [Artificial Tears]) 1 drop EYEBOTH DAILY PRN PRN Reason: Dry Eyes Non-Formulary Medication (Deferasirox [Jadenu]) 360 mg PO DAILY [facility] Non-Formulary Medication (Lactose-Reduced Food [Ensure]) 4 oz PO BID [facility] Non-Formulary Medication (Lutein/Min/Vit C/Vit E Acetate) 1 cap PO DAILY [facility] Olanzapine (Zyprexa) 5 mg IM Q8H PRN PRN Reason: Anxiety Ondansetron HCl (Zofran) 4 mg IVPUSH Q4H PRN PRN Reason: Nausea and Vomiting Polyethylene Glycol (Miralax) 17 gm PO DAILY [facility] Senna/Docusate Sodium (Senna Plus) 2 tab PO BID [facility] Simvastatin (Zocor) 20 mg PO BEDTIME [facility] Sucralfate (Carafate) 2 gm PO BEDTIME [facility] Assessment/Plan Comment:: Acute hypoxemic respiratory failure: Will admit the patient to telemetry under close cardiac, respiratory, and clinical monitoring. Will provide oxygen supplementation via NC to keep pulsOx > 91%. 9, because of hypoxia could be due to the patient's abnormal heartbeat, PE less likely. If hypoxia persists, will recommend ABG for now we will continue to monitor patient closely. Will be on supplemental breathing treatments. Cardiovascular risk/sustained V. tach: While in the ER, patient was found with multiple episodes of nonsustained V. tach, EKG concerning for new onset paroxysmal atrial fibrillation., Patient denies any obvious chest pain. Patient will be on beta-blockers with metoprolol 12.5 mg p.o. twice daily, will continue to monitor patient's heart rate closely. Patient will be given magnesium 1 g IV x1 dose. Given significant bruising, and the patient being allergic to aspirin, will hold anticoagulation/coagulation with aspirin or Plavix. Will request 2 sets of cardiac enzymes and EKG. Also check the patient 's TSH, UA was checked negative for any infection. Hypertension. The patient will be on a cautious dose of b-blockers Metoprolol 12.5 mg PO bid (will hold dose if HR<60/min or SBP<90 mmHg). Continue home dose of Norvasc 5 mg p.o. daily . will start Hydralazine 10 mg IVP q 6 hours as needed for SBP > 180 mmHg). Home vasodilators will be on hold for now but might restart later if BP higher than the target level. Dyslipidemia: Check the patient's lipid profile, start patient on simvastatin 20 mg p.o. nightly, Functional tetraplegia: She is debilitated, will consult with therapy for strengthening. will advised patient to return every 2 hours. Frequent falls: It has been reported the patient has been falling frequently, patient also has bruises. I believe because of frequent falls is due to patient 's multiple narcotic medications for now, see patient is on a new patch along with baclofen which can also cause increased sedation. We will hold these medications for now. For pain control patient will be on hydrocodone 5/325 1 tablet p.o. a moderate pain. Pain control: hydrocodone 5/325 1 tablet. Moderate pain, hold NSAIDs for now due to increased risk of bleeding. Hypothyroidism. Will continue the home dose of Synthroid 75 mcg q am. Will check TSH and Free T4 (if needed). Restlessness or Allergies: Zyprexa 5mg IV Q4H PRN restlessness or agitation. Nausea: In case of nausea use Zofran 4mg IVP Q4H PRN nausea. DVT Prophylaxis: Heparin 5,000 units subQ Q12H (dose adjusted to age and renal function). We will keep monitoring H&H and platelet count. UGI Bleed Prophylaxis: Protonix 40mg PO QPM before dinner, Mylanta 30 mL q4h PRN indigestion. Constipation Prophylaxis: Senokot S 2 tabs PO BID, MiraLAX 17 grams PO at 1400 daily PRN no bowl movement, Fleet enema every other day if needed. CODE STATUS: Full Code Disposition: Anticipated hospital stay is longer than 2 midnights.
[2020-02-17] MEDS: Famotidine 20 MG Tab PO SCH (19:01)
[2020-02-17] MEDS: traMADol 50 MG Tab PO PRN (19:32)
[2020-02-17] MEDS: Simvastatin 20 MG Tab PO SCH ×2 (19:33→20:47)
[2020-02-17] MEDS: Metoprolol Succinate 25 MG Tab.ER PO SCH ×2 (19:33→20:46)
[2020-02-17] MEDS: Sucralfate 1 GM Tab PO SCH ×2 (19:33→21:49)
[2020-02-17] MEDS: LACTOSE REDUCED FOOD PO SCH (20:47)
[2020-02-18] MEDS: traMADol 50 MG Tab PO PRN ×5 (00:04→19:36)
[2020-02-18] MEDS: Morphine 2 MG/ML Syringe IVPUSH PRN (02:26)
[2020-02-18] MEDS: Levothyroxine 75 MCG Tab PO SCH (05:39)
[2020-02-18] MEDS ORDERED: Potassium Chloride 20 MEQ Tab.ER PO ONE ×2 (07:06→19:55)
[2020-02-18] MEDS ORDERED: Furosemide 40 MG/4 ML VIAL IVPUSH ONE (07:06)
[2020-02-18] MEDS ORDERED: VIT C PO SCH (09:00)
[2020-02-18] MEDS ORDERED: LUTEIN PO SCH (09:00)
[2020-02-18] MEDS ORDERED: Aspirin 81 MG Tab.EC PO SCH (09:00)
[2020-02-18] MEDS ORDERED: VIT E ACETATE PO SCH (09:00)
[2020-02-18] MEDS: Heparin Sodium 5,000 Units/ML Vial SUBCUT SCH ×2 (09:42→20:51)
[2020-02-18] MEDS: LACTOSE REDUCED FOOD PO SCH ×2 (09:43→20:53)
[2020-02-18] MEDS: Cyanocobalamin (Vitamin B12) 1,000 MCG Tab PO SCH (09:43)
[2020-02-18] MEDS: amLODIPine 5 MG Tab PO SCH (09:44)
[2020-02-18] MEDS: Metoprolol Succinate 25 MG Tab.ER PO SCH ×3 (09:44→20:52)
[2020-02-18] MEDS: Polyethylene Glycol 3350 Powder 17 GM Packet PO SCH (09:45)
[2020-02-18] MEDS: DEFERASIROX 360 MG PO SCH (09:46)
[2020-02-18] MEDS: Non-Formulary Medication 1 Each (Biotin [Biotin] 5,000 MCG) PO SCH (09:47)
--- NOTE | 2020-02-18 11:15 | PCM.PN ---
- General Info Date of Service: 02/18/20 - Review of Systems Systems Review Comment:: The patient was seen and examined by me, and discussed with . At the time of my exam, patient resting in bed. Today morning, the patient seems more awake, seems more alert compared to yesterday. Nursing staff did not report any sudden decrease in the patient's mental status. No obvious fevers or chills no nausea no vomiting. Patient has not had a bowel movement. Per nursing staff last bowel movement 2 days ago. Patient is discussed with nursing staff, if the patient has not had a bowel movement by 2 PM today, patient should be given MiraLAX. Otherwise, vital signs relatively stable, discussed with nursing staff to give the patient Lasix 40 mg IV push today. Note monitor replace electrolytes. No other acute concerns noted. - Patient Data Vitals - Most Recent: Last Vital Signs Temp 97.6 F 02/18/20 07:19 Pulse 74 02/18/20 09:44 Resp 16 02/18/20 07:19 BP 147/77 H 02/18/20 09:44 Pulse Ox 100 02/18/20 07:35 Weight - Most Recent: 91 lb 1.6 oz I&O - Last 24 Hours: Intake & Output 02/17/20 02/18/20 02/18/20 22:59 06:59 14:59 Intake Total 700 Balance 700 Lab Results Last 24 Hours: Laboratory Results - last 24 hr 02/17/20 02/17/20 02/17/20 Range/Units 15:08 15:08 15:08 WBC 7.37 (3.98-10.04) K/mm3 RBC 2.81 L (3.98-5.22) M/mm3 Hgb 8.4 L D (11.2-15.7) gm/dl Hct 27.5 L (34.1-44.9) % MCV 97.9 H D (79.4-94.8) fl MCH 29.9 (25.6-32.2) pg MCHC 30.5 L (32.2-35.5) g/dl RDW Std Deviation 73.6 H (36.4-46.3) fL Plt Count 413 H (182-369) K/mm3 MPV 9.9 (9.4-12.3) fl Neut % (Auto) 79.8 H (34.0-71.1) % Lymph % (Auto) 10.6 L (19.3-51.7) % [place] % (Auto) 8.3 (4.7-12.5) % Eos % (Auto) 0.4 L (0.7-5.8) Baso % (Auto) 0.1 (0.1-1.2) % Neut # (Auto) 5.88 (1.56-6.13) K/mm3 Lymph # (Auto) 0.78 L (1.18-3.74) K/mm3 [place] # (Auto) 0.61 H (0.24-0.36) K/mm3 Eos # (Auto) 0.03 L (0.04-0.36) K/mm3 Baso # (Auto) 0.01 (0.01-0.08) K/mm3 Manual Slide Review Abnormal smear Sodium 140 (136-145) mEq/L Potassium 4.1 (3.5-5.1) mEq/L Chloride 101 (98-107) mEq/L Carbon Dioxide 29 (21-32) mEq/L Anion Gap 14.1 (5-15) BUN 63 H D (7-18) mg/dL Creatinine 1.7 H (0.55-1.02) mg/dL Est Cr Clr Drug Dosing TNP Estimated GFR (MDRD) 29 (>60) mL/min BUN/Creatinine Ratio 37.1 H (14-18) Glucose 135 H (83-115) mg/dL Calcium 8.2 L (8.5-10.1) mg/dL Magnesium (1.8-2.4) mg/dl Total Bilirubin 0.5 (0.2-1.0) mg/dL AST 26 (15-37) U/L ALT 41 (14-59) U/L Alkaline Phosphatase 163 H (46-116) U/L Creatine Kinase (26-192) U/L CK-MB (CK-2) (0-3.6) ng/ml Troponin I < 0.017 (0.00-0.056) ng/mL NT-Pro-B Natriuret Pep (0-450) pg/mL Total Protein 6.7 (6.4-8.2) g/dl Albumin 3.4 (3.4-5.0) g/dl Globulin 3.3 gm/dL Albumin/Globulin Ratio 1.0 (1-2) Triglycerides (<150) mg/dL Cholesterol (<200) mg/dL LDL Cholesterol Direct (<100) mg/dL HDL Cholesterol (40-59) mg/dL TSH 3rd Generation (0.358-3.74) uIU/mL Urine Color (Yellow) Urine Appearance (Clear) Urine pH (5.0-8.0) Ur Specific [place] (1.005-1.030) Urine Protein (Negative) Urine Glucose (UA) (Negative) Urine Ketones (Negative) Urine Occult Blood (Negative) Urine Nitrite (Negative) Urine Bilirubin (Negative) Urine Urobilinogen (0.2-1.0) Ur Leukocyte Esterase (Negative) Urine RBC (0-5) /hpf Urine WBC (0-5) /hpf Ur Squamous Epith Cells (0-5) /hpf Urine Bacteria (FEW) /hpf Urine Mucus (FEW) /hpf MRSA (PCR) 02/17/20 02/17/20 02/17/20 Range/Units 15:40 18:23 18:23 WBC (3.98-10.04) K/mm3 RBC (3.98-5.22) M/mm3 Hgb (11.2-15.7) gm/dl Hct (34.1-44.9) % MCV (79.4-94.8) fl MCH (25.6-32.2) pg MCHC (32.2-35.5) g/dl RDW Std Deviation (36.4-46.3) fL Plt Count (182-369) K/mm3 MPV (9.4-12.3) fl Neut % (Auto) (34.0-71.1) % Lymph % (Auto) (19.3-51.7) % [place] % (Auto) (4.7-12.5) % Eos % (Auto) (0.7-5.8) Baso % (Auto) (0.1-1.2) % Neut # (Auto) (1.56-6.13) K/mm3 Lymph # (Auto) (1.18-3.74) K/mm3 [place] # (Auto) (0.24-0.36) K/mm3 Eos # (Auto) (0.04-0.36) K/mm3 Baso # (Auto) (0.01-0.08) K/mm3 Manual Slide Review Sodium (136-145) mEq/L Potassium (3.5-5.1) mEq/L Chloride (98-107) mEq/L Carbon Dioxide (21-32) mEq/L Anion Gap (5-15) BUN (7-18) mg/dL Creatinine (0.55-1.02) mg/dL Est Cr Clr Drug Dosing Estimated GFR (MDRD) (>60) mL/min BUN/Creatinine Ratio (14-18) Glucose (83-115) mg/dL Calcium (8.5-10.1) mg/dL Magnesium 2.3 (1.8-2.4) mg/dl Total Bilirubin (0.2-1.0) mg/dL AST (15-37) U/L ALT (14-59) U/L Alkaline Phosphatase (46-116) U/L Creatine Kinase 56 (26-192) U/L CK-MB (CK-2) 3.6 (0-3.6) ng/ml Troponin I < 0.017 (0.00-0.056) ng/mL NT-Pro-B Natriuret Pep (0-450) pg/mL Total Protein (6.4-8.2) g/dl Albumin (3.4-5.0) g/dl Globulin gm/dL Albumin/Globulin Ratio (1-2) Triglycerides (<150) mg/dL Cholesterol (<200) mg/dL LDL Cholesterol Direct (<100) mg/dL HDL Cholesterol (40-59) mg/dL TSH 3rd Generation (0.358-3.74) uIU/mL Urine Color Light yellow (Yellow) Urine Appearance Clear (Clear) Urine pH 6.0 (5.0-8.0) Ur Specific [place] 1.025 (1.005-1.030) Urine Protein Negative (Negative) Urine Glucose (UA) Negative (Negative) Urine Ketones Negative (Negative) Urine Occult Blood Negative (Negative) Urine Nitrite Negative (Negative) Urine Bilirubin Negative (Negative) Urine Urobilinogen 0.2 (0.2-1.0) Ur Leukocyte Esterase Negative (Negative) Urine RBC 0-5 (0-5) /hpf Urine WBC 0-5 (0-5) /hpf Ur Squamous Epith Cells 0-5 (0-5) /hpf Urine Bacteria Occasional (FEW) /hpf Urine Mucus Not seen (FEW) /hpf MRSA (PCR) 02/17/20 02/18/20 02/18/20 Range/Units 23:07 04:51 04:51 WBC 4.99 (3.98-10.04) K/mm3 RBC 2.90 L (3.98-5.22) M/mm3 Hgb 8.5 L (11.2-15.7) gm/dl Hct 27.9 L (34.1-44.9) % MCV 96.2 H (79.4-94.8) fl MCH 29.3 (25.6-32.2) pg MCHC 30.5 L (32.2-35.5) g/dl RDW Std Deviation 71.2 H (36.4-46.3) fL Plt Count 418 H (182-369) K/mm3 MPV 10.3 (9.4-12.3) fl Neut % (Auto) 66.4 (34.0-71.1) % Lymph % (Auto) 16.4 L (19.3-51.7) % [place] % (Auto) 13.6 H (4.7-12.5) % Eos % (Auto) 2.0 (0.7-5.8) Baso % (Auto) 0.4 (0.1-1.2) % Neut # (Auto) 3.31 (1.56-6.13) K/mm3 Lymph # (Auto) 0.82 L (1.18-3.74) K/mm3 [place] # (Auto) 0.68 H (0.24-0.36) K/mm3 Eos # (Auto) 0.10 (0.04-0.36) K/mm3 Baso # (Auto) 0.02 (0.01-0.08) K/mm3 Manual Slide Review Normal smear Sodium (136-145) mEq/L Potassium (3.5-5.1) mEq/L Chloride (98-107) mEq/L Carbon Dioxide (21-32) mEq/L Anion Gap (5-15) BUN (7-18) mg/dL Creatinine (0.55-1.02) mg/dL Est Cr Clr Drug Dosing Estimated GFR (MDRD) (>60) mL/min BUN/Creatinine Ratio (14-18) Glucose (83-115) mg/dL Calcium (8.5-10.1) mg/dL Magnesium (1.8-2.4) mg/dl Total Bilirubin (0.2-1.0) mg/dL AST (15-37) U/L ALT (14-59) U/L Alkaline Phosphatase (46-116) U/L Creatine Kinase 51 (26-192) U/L CK-MB (CK-2) 3.2 (0-3.6) ng/ml Troponin I (0.00-0.056) ng/mL NT-Pro-B Natriuret Pep (0-450) pg/mL Total Protein (6.4-8.2) g/dl Albumin (3.4-5.0) g/dl Globulin gm/dL Albumin/Globulin Ratio (1-2) Triglycerides (<150) mg/dL Cholesterol (<200) mg/dL LDL Cholesterol Direct (<100) mg/dL HDL Cholesterol (40-59) mg/dL TSH 3rd Generation (0.358-3.74) uIU/mL Urine Color (Yellow) Urine Appearance (Clear) Urine pH (5.0-8.0) Ur Specific [place] (1.005-1.030) Urine Protein (Negative) Urine Glucose (UA) (Negative) Urine Ketones (Negative) Urine Occult Blood (Negative) Urine Nitrite (Negative) Urine Bilirubin (Negative) Urine Urobilinogen (0.2-1.0) Ur Leukocyte Esterase (Negative) Urine RBC (0-5) /hpf Urine WBC (0-5) /hpf Ur Squamous Epith Cells (0-5) /hpf Urine Bacteria (FEW) /hpf Urine Mucus (FEW) /hpf MRSA (PCR) Negative 02/18/20 02/18/20 02/18/20 Range/Units 04:51 04:51 04:51 WBC (3.98-10.04) K/mm3 RBC (3.98-5.22) M/mm3 Hgb (11.2-15.7) gm/dl Hct (34.1-44.9) % MCV (79.4-94.8) fl MCH (25.6-32.2) pg MCHC (32.2-35.5) g/dl RDW Std Deviation (36.4-46.3) fL Plt Count (182-369) K/mm3 MPV (9.4-12.3) fl Neut % (Auto) (34.0-71.1) % Lymph % (Auto) (19.3-51.7) % [place] % (Auto) (4.7-12.5) % Eos % (Auto) (0.7-5.8) Baso % (Auto) (0.1-1.2) % Neut # (Auto) (1.56-6.13) K/mm3 Lymph # (Auto) (1.18-3.74) K/mm3 [place] # (Auto) (0.24-0.36) K/mm3 Eos # (Auto) (0.04-0.36) K/mm3 Baso # (Auto) (0.01-0.08) K/mm3 Manual Slide Review Sodium 140 (136-145) mEq/L Potassium 3.9 (3.5-5.1) mEq/L Chloride 102 (98-107) mEq/L Carbon Dioxide 30 (21-32) mEq/L Anion Gap 11.9 (5-15) BUN 51 H (7-18) mg/dL Creatinine 1.5 H (0.55-1.02) mg/dL Est Cr Clr Drug Dosing 19.19 Estimated GFR (MDRD) 33 (>60) mL/min BUN/Creatinine Ratio 34.0 H (14-18) Glucose 127 H (83-115) mg/dL Calcium 8.6 (8.5-10.1) mg/dL Magnesium 3.4 H (1.8-2.4) mg/dl Total Bilirubin 0.5 (0.2-1.0) mg/dL AST 26 (15-37) U/L ALT 38 (14-59) U/L Alkaline Phosphatase 164 H (46-116) U/L Creatine Kinase (26-192) U/L CK-MB (CK-2) (0-3.6) ng/ml Troponin I (0.00-0.056) ng/mL NT-Pro-B Natriuret Pep 1205 H (0-450) pg/mL Total Protein 6.8 (6.4-8.2) g/dl Albumin 3.3 L (3.4-5.0) g/dl Globulin 3.5 gm/dL Albumin/Globulin Ratio 0.9 L (1-2) Triglycerides 132 (<150) mg/dL Cholesterol 201 H (<200) mg/dL LDL Cholesterol Direct 114 H* (<100) mg/dL HDL Cholesterol 61.0 H (40-59) mg/dL TSH 3rd Generation 2.824 (0.358-3.74) uIU/mL Urine Color (Yellow) Urine Appearance (Clear) Urine pH (5.0-8.0) Ur Specific [place] (1.005-1.030) Urine Protein (Negative) Urine Glucose (UA) (Negative) Urine Ketones (Negative) Urine Occult Blood (Negative) Urine Nitrite (Negative) Urine Bilirubin (Negative) Urine Urobilinogen (0.2-1.0) Ur Leukocyte Esterase (Negative) Urine RBC (0-5) /hpf Urine WBC (0-5) /hpf Ur Squamous Epith Cells (0-5) /hpf Urine Bacteria (FEW) /hpf Urine Mucus (FEW) /hpf MRSA (PCR) Wing Results Last 24 Hours: Microbiology 02/17/20 15:40 Urine Culture - Preliminary Urine, Bladder NO GROWTH AFTER 1 DAY Med Orders - Current: Current Medications Albuterol (Proventil Neb Soln) 2.5 mg NEB Q2H PRN PRN Reason: Wheezing Amlodipine Besylate (Norvasc) 5 mg PO DAILY [facility] [place] Last Admin: 02/18/20 09:44 Dose: 5 mg Cyanocobalamin (Vitamin B12) 500 mcg PO DAILY [facility] [place] Last Admin: 02/18/20 09:43 Dose: 500 mcg Famotidine (Pepcid) 20 mg PO QPM [facility] [place] Last Admin: 02/17/20 19:01 Dose: 20 mg Heparin Sodium (Porcine) (Heparin Sodium) 5,000 units SUBCUT Q12H [facility] [place] Last Admin: 02/18/20 09:42 Dose: 5,000 units Hydralazine HCl (Apresoline) 10 mg IVPUSH Q6H PRN PRN Reason: Hypertension Hydroxyzine HCl (Atarax) 25 mg PO Q6H PRN PRN Reason: Anxiety Sodium Chloride (Normal Saline) 1,000 mls @ 30 mls/hr IV ASDIRECTED [facility] [place] Ceftriaxone Sodium 1 gm/ (Sodium Chloride) 100 mls @ 200 mls/hr IV Q24H [facility] [place] Levothyroxine Sodium (Levothyroxine) 75 mcg PO ACBREAKFAST [facility] [place] Last Admin: 02/18/20 05:39 Dose: 75 mcg Metoprolol Succinate (Toprol Xl) 12.5 mg PO BID [facility] [place] Last Admin: 02/18/20 09:44 Dose: 12.5 mg Morphine Sulfate (Morphine) 1 mg IVPUSH Q4H PRN PRN Reason: Pain (severe 7-10) Last Admin: 02/18/20 02:26 Dose: 1 mg Nitroglycerin (Nitrostat) 0.4 mg SL Q5M PRN PRN Reason: Chest Pain Non-Formulary Medication (Biotin [Biotin]) 5,000 mcg PO DAILY [facility] [place] Last Admin: 02/18/20 09:47 Dose: Not Given Non-Formulary Medication (Carboxymethylcellulose Sodium [Artificial Tears]) 1 drop EYEBOTH DAILY PRN PRN Reason: Dry Eyes Non-Formulary Medication (Deferasirox [Jadenu]) 360 mg PO DAILY [facility] [place] Last Admin: 02/18/20 09:46 Dose: Not Given Non-Formulary Medication (Lactose-Reduced Food [Ensure]) 4 oz PO BID [facility] [place] Last Admin: 02/18/20 09:43 Dose: Not Given Non-Formulary Medication (Lutein/Min/Vit C/Vit E Acetate) 1 cap PO DAILY [facility] [place] Last Admin: 02/18/20 09:45 Dose: Not Given Olanzapine (Zyprexa) 5 mg IM Q8H PRN PRN Reason: Anxiety Ondansetron HCl (Zofran) 4 mg IVPUSH Q4H PRN PRN Reason: Nausea and Vomiting Oxycodone HCl (Oxycodone) 5 mg PO Q6H PRN PRN Reason: moderate pain 4-6/10 Polyethylene Glycol (Miralax) 17 gm PO DAILY [facility] [place] Last Admin: 02/18/20 09:45 Dose: Not Given Polyethylene Glycol (Miralax) 17 gm PO ONETIME ONE Stop: 02/18/20 14:01 Senna/Docusate Sodium (Senna Plus) 2 tab PO BID [facility] [place] Last Admin: 02/18/20 09:44 Dose: 2 tab Simvastatin (Zocor) 20 mg PO BEDTIME [facility] [place] Last Admin: 02/17/20 20:47 Dose: Not Given Sucralfate (Carafate) 2 gm PO BEDTIME [facility] [place] Last Admin: 02/17/20 21:49 Dose: Not Given Tramadol HCl (Ultram) 50 mg PO Q4H PRN PRN Reason: Pain (moderate 4-6) Last Admin: 02/18/20 10:29 Dose: 50 mg Discontinued Medications Acetaminophen (Tylenol) 650 mg PO Q6H PRN PRN Reason: Pain (Mild 1-3) or Fever Acetaminophen (Tylenol) 650 mg RECTAL Q6H PRN PRN Reason: Pain (Mild 1-3) or Fever Aspirin (Halfprin) 81 mg PO DAILY [facility] Furosemide (Lasix) 40 mg IVPUSH NOW ONE Stop: 02/18/20 07:07 Last Admin: 02/18/20 08:05 Dose: 40 mg Ceftriaxone Sodium 1 gm/ (Sodium Chloride) 100 mls @ 200 mls/hr IV Q24H [facility] Last Admin: 02/17/20 19:01 Dose: 200 mls/hr Magnesium Sulfate/Dextrose 1 (gm/ Premix) 100 mls @ 100 mls/hr IV Q1H [facility] Stop: 02/17/20 21:44 Last Admin: 02/17/20 21:48 Dose: Not Given Potassium Chloride (Klor-Con M20) 40 meq PO ONETIME ONE Stop: 02/18/20 07:07 Last Admin: 02/18/20 08:05 Dose: 40 meq - Exam Physical Findings Comments:: General: The patient is awake, alert and oriented x2, agitated today compared to yesterday more alert. HEENT: Head atraumatic pupils equally round reactive to light oral mucosa dry no signs of pharyngeal inflammation. Neck: supple no increased J.VD Chest: Patient noted with diminished breath sounds bilaterally but no obvious wheezes, occasional crepitations noted in the bases. Heart: Normal S1-S2 heart sounds, systolic murmur noted, but no pre-. Abdomen: Soft protuberant otherwise nontender slightly distended bowel sounds present. SKIN: Notable multiple skin bruises, in both upper and lower extremities, patient's left index finger also noted with a bruise recent skin tear. Extremities: Patient noted with 1-2+ pitting edema bilaterally no varicose veins , palpations of calves nontender. Sepsis Event Note - Evaluation Sepsis Screening Result: No Definite Risk - Focused Exam Vital Signs: Vital Signs Temp Pulse Resp BP BP Pulse Ox Pulse Ox 02/18/20 09:44 74 147/77 H 02/18/20 07:35 100 02/18/20 07:19 97.6 F 73 16 147/77 H 100 02/18/20 04:00 96.9 F 69 16 156/72 H 100 02/18/20 02:00 68 100 02/18/20 01:30 67 100 02/18/20 01:00 73 100 02/18/20 00:30 78 100 02/18/20 00:01 79 100 02/18/20 00:00 96.9 F 81 18 165/77 H 165/77 H 100 02/17/20 23:59 78 100 02/17/20 23:30 75 100 Date Exam was Performed: 02/18/20 Time Exam was Performed: 11:07 - Problem List Review Problem List Initiated/Reviewed/Updated: Yes - My Orders Last 24 Hours: My Active Orders 02/17/20 17:42 Patient Status [ADT] Routine Aspiration Precautions [RC] ASDIRECTED Cardiac Monitoring [RC] CONTINUOUS Communication Order [RC] ASDIRECTED Communication Order [RC] PRN Height and Weight [RC] 0400 Notify Provider Vital Signs [RC] ASDIRECTED Notify Provider [RC] PRN Oxygen Therapy [RC] ASDIRECTED RT BiPAP/CPAP [RC] ASDIRECTED PT Evaluation and Treatment [CONS] Routine Albuterol [Proventil Neb Soln] 2.5 mg NEB Q2H PRN Morphine 1 mg IVPUSH Q4H PRN Nitroglycerin [Nitrostat] 0.4 mg SL Q5M PRN OLANZapine [ZyPREXA] 5 mg IM Q8H PRN Ondansetron [Zofran] 4 mg IVPUSH Q4H PRN hydrALAZINE [Apresoline] 10 mg IVPUSH Q6H PRN Antiembolic Hose [OM.PC] Routine Resuscitation Status Routine 02/17/20 17:43 Antiembolic Devices [RC] 02/17/20 17:45 Sodium Chloride 0.9% [Normal Saline] 1,000 ml IV ASDIRECTED 02/17/20 17:47 Turn, Cough, Deep Breathe [RC] PER UNIT ROUTINE 02/17/20 18:00 Famotidine [Pepcid] 20 mg PO QPM 02/17/20 18:08 Carboxymethylcellulose Sodium [Artificial Tears] 1 drop EYEBOTH DAILY PRN hydrOXYzine HCL [Atarax] 25 mg PO Q6H PRN 02/17/20 21:00 Docusate Sodium/Sennosides [Senna Plus] 2 tab PO BID Lactose-Reduced Food [Ensure] 4 oz PO BID Metoprolol Succinate [Toprol XL] 12.5 mg PO BID Simvastatin [Zocor] 20 mg PO BEDTIME Sucralfate [Carafate] 2 gm PO BEDTIME 02/18/20 06:00 Levothyroxine 75 mcg PO ACBREAKFAST 02/18/20 07:00 EKG Documentation Completion [RC] AM 02/18/20 09:00 Biotin [Biotin] 5,000 mcg PO DAILY Cyanocobalamin (Vitamin B12) [Vitamin B12] 500 mcg PO DAILY Deferasirox [Jadenu] 360 mg PO DAILY Heparin Sodium 5,000 units SUBCUT Q12H Lutein/Min/Vit C/Vit E Acetate 1 cap PO DAILY amLODIPine [Norvasc] 5 mg PO DAILY polyethylene glycoL 3350 [MiraLAX] 17 gm PO DAILY 02/18/20 18:00 cefTRIAXone [Rocephin] 1 gm Sodium Chloride 0.9% [Normal Saline] 100 ml IV Q24H 02/19/20 05:11 CBC WITH AUTO DIFF [HEME] AM CMP [COMPREHENSIVE METABOLIC PN,CMP] [CHEM] AM MAGNESIUM (PHARM SOLN) [CHEM] DAILY PHOSPHORUS [CHEM] AM 02/20/20 05:11 CMP [COMPREHENSIVE METABOLIC PN,CMP] [CHEM] AM 02/21/20 05:11 CMP [COMPREHENSIVE METABOLIC PN,CMP] [CHEM] AM - Assessment Assessment:: Assessment/Plan Comment:: Acute hypoxemic respiratory failure: Today, the patient has been requiring oxygen to keep saturations above 90. Will continue supplemental oxygen, continue as needed breathing treatments for the patient. Prior to discharge, plan will be to check the patient's nocturnal as well as exercise oximetry. Metabolic hypoxic encephalopathy: In, the patient was confused, appeared to be agitated. I believe because of patient's symptoms were secondary to hypoxia. Since the patient has been on oxygen, patient's mental status has been much better compared to time of admission, plan to check nocturnal exercise oximetry. No signs of infection. Fluid over load: On admission, patient noted with signs of fluid overload. But given the patient's presentation, diuretics could not be given to the patient. On admission BNP was greater than 1000. Plan will be to give the patient Lasix 40 mg IV push x1 dose today. We will continue to monitor and replace electrolytes. Potassium today 3.9 patient was given potassium chloride 40 mEq. Cardiovascular risk/sustained V. tach: Out of chest pain or palpitations. On presentation in the ED, patient was noted with nonsustained V. tach's episodes of paroxysmal atrial fibrillation. 2 sets of cardiac enzymes and EKG that was done to the patient no concerning for acute ischemia. Goal was to start the patient on aspirin but given patient is allergic, no aspirin can be started to the patient as well as Plavix given risk of bleeding in this patient with multiple skin bruises in the meantime, will continue with metoprolol 12.5 mg p.o. twice daily, continue to monitor the patient on telemetry. Hypertension: His blood pressure this morning on the higher side with systolic blood pressure 156/72. Patient will receive 1 dose of Lasix 40 mg IV push, in the meantime continue beta-maikol as described above, Metoprolol 12.5 mg PO bid (will hold dose if HR<60/min or SBP<90 mmHg). Continue home dose of Norvasc 5 mg p.o. daily . will start Hydralazine 10 mg IVP q 6 hours as needed for SBP > 180 mmHg). Home vasodilators will be on hold for now but might restart later if BP higher than the target level. Dyslipidemia: Lipid profile was checked, triglycerides 132 LDL 201 HDL 114 cholesterol 61. Continue simvastatin 20 mg p.o. nightly, Functional tetraplegia: She is debilitated, will consult with therapy for strengthening. will advised patient to return every 2 hours. Frequent falls: It has been reported the patient has been falling frequently, patient also has bruises. I believe because of frequent falls is due to patient 's multiple narcotic medications for now, see patient is on a new patch along with baclofen which can also cause increased sedation. We will hold these medications for now. For pain control patient will be on hydrocodone 5/325 1 tablet p.o. a moderate pain. Pain control: 50 mg every 4 hours moderate pain, hold NSAIDs for now due to increased risk of bleeding. Hypothyroidism. Will continue the home dose of Synthroid 75 mcg q am. States was checked, within normal limits. Restlessness or Allergies: Zyprexa 5mg IV Q4H PRN restlessness or agitation. Nausea: In case of nausea use Zofran 4mg IVP Q4H PRN nausea. DVT Prophylaxis: Heparin 5,000 units subQ Q12H (dose adjusted to age and renal function). We will keep monitoring H&H and platelet count. UGI Bleed Prophylaxis: Protonix 40mg PO QPM before dinner, Mylanta 30 mL q4h PRN indigestion. Constipation Prophylaxis: She has not had a bowel movement for the past 2 days. Goal is to continue Senokot S 2 tabs PO BID, MiraLAX 17 grams PO at 1400 daily PRN no bowl movement, no bowel movement tomorrow, will give patient enemas. Status: Full code. - Plan Plan:: Acute hypoxemic respiratory failure: Will admit the patient to telemetry under close cardiac, respiratory, and clinical monitoring. Will provide oxygen supplementation via NC to keep pulsOx > 91%. 9, because of hypoxia could be due to the patient's abnormal heartbeat, PE less likely. If hypoxia persists, will recommend ABG for now we will continue to monitor patient closely. Will be on supplemental breathing treatments. Cardiovascular risk/sustained V. tach: While in the ER, patient was found with multiple episodes of nonsustained V. tach, EKG concerning for new onset paroxysmal atrial fibrillation., Patient denies any obvious chest pain. Patient will be on beta-blockers with metoprolol 12.5 mg p.o. twice daily, will continue to monitor patient's heart rate closely. Patient will be given magnesium 1 g IV x1 dose. Given significant bruising, and the patient being allergic to aspirin, will hold anticoagulation/coagulation with aspirin or Plavix. Will request 2 sets of cardiac enzymes and EKG. Also check the patient 's TSH, UA was checked negative for any infection. Hypertension. The patient will be on a cautious dose of b-blockers Metoprolol 12.5 mg PO bid (will hold dose if HR<60/min or SBP<90 mmHg). Continue home dose of Norvasc 5 mg p.o. daily . will start Hydralazine 10 mg IVP q 6 hours as needed for SBP > 180 mmHg). Home vasodilators will be on hold for now but might restart later if BP higher than the target level. Dyslipidemia: Check the patient's lipid profile, start patient on simvastatin 20 mg p.o. nightly, Functional tetraplegia: She is debilitated, will consult with therapy for strengthening. will advised patient to return every 2 hours. Frequent falls: It has been reported the patient has been falling frequently, patient also has bruises. I believe because of frequent falls is due to patient 's multiple narcotic medications for now, see patient is on a new patch along with baclofen which can also cause increased sedation. We will hold these medications for now. For pain control patient will be on hydrocodone 5/325 1 tablet p.o. a moderate pain. Pain control: hydrocodone 5/325 1 tablet. Moderate pain, hold NSAIDs for now due to increased risk of bleeding. Hypothyroidism. Will continue the home dose of Synthroid 75 mcg q am. Will check TSH and Free T4 (if needed). Restlessness or Allergies: Zyprexa 5mg IV Q4H PRN restlessness or agitation. Nausea: In case of nausea use Zofran 4mg IVP Q4H PRN nausea. DVT Prophylaxis: Heparin 5,000 units subQ Q12H (dose adjusted to age and renal function). We will keep monitoring H&H and platelet count. UGI Bleed Prophylaxis: Protonix 40mg PO QPM before dinner, Mylanta 30 mL q4h PRN indigestion. Constipation Prophylaxis: Senokot S 2 tabs PO BID, MiraLAX 17 grams PO at 1400 daily PRN no bowl movement, Fleet enema every other day if needed. CODE STATUS: Full Code Disposition: Anticipated hospital stay is longer than 2 midnights.
--- NOTE | 2020-02-18 11:47 | CR ---
Left thumb: 3 views of the left thumb were obtained. Comparison: No previous thumb study. Lucent line is identified on one view within the base of the proximal phalanx believed to be artifact. Osteopenia is present. Degenerative change is noted within the CMC, IP and PIP joints. No discrete fracture or other abnormality is appreciated. Impression: 1. Osteopenia and degenerative change. 2. Nothing acute is definitely appreciated. 3. If patient continues to be symptomatic, recommend repeat study in 10-14 days. Diagnostic code #3 This report was dictated in MDT
[2020-02-18] MEDS ORDERED: Polyethylene Glycol 3350 Powder 17 GM Packet PO ONE (14:00)
[2020-02-18] MEDS: Carboxymethylcellulose Sodium 1% Ophth Gel 15 ML Bottle EYEBOTH PRN (15:06)
[2020-02-18] MEDS: oxyCODONE 5 MG Tab PO PRN (17:03)
[2020-02-18] MEDS: Famotidine 20 MG Tab PO SCH (17:03)
[2020-02-18] MEDS ORDERED: cefTRIAXone 1 GM in Sodium Chloride 0.9% 100 ML IV SCH (18:00)
[2020-02-18] MEDS ORDERED: Metoprolol Tartrate 5 MG/5 ML SDV IVPUSH ONE (19:40)
[2020-02-18] MEDS ORDERED: Metoprolol Tartrate 5 MG/5 ML SDV ONE (19:46)
[2020-02-18] MEDS: Simvastatin 20 MG Tab PO SCH (20:51)
[2020-02-18] MEDS: Sucralfate 1 GM Tab PO SCH (20:51)
[2020-02-19] MEDS: oxyCODONE 5 MG Tab PO PRN (01:30)
[2020-02-19] MEDS: Levothyroxine 75 MCG Tab PO SCH (05:36)
[2020-02-19] MEDS: traMADol 50 MG Tab PO PRN ×4 (05:36→21:26)
[2020-02-19] MEDS ORDERED: Diltiazem 120 MG Cap.CD PO SCH (09:00)
[2020-02-19] MEDS: Heparin Sodium 5,000 Units/ML Vial SUBCUT SCH ×2 (09:16→20:12)
[2020-02-19] MEDS: DEFERASIROX 360 MG PO SCH (09:17)
[2020-02-19] MEDS: Cyanocobalamin (Vitamin B12) 1,000 MCG Tab PO SCH (09:18)
[2020-02-19] MEDS: Non-Formulary Medication 1 Each (Biotin [Biotin] 5,000 MCG) PO SCH (09:18)
[2020-02-19] MEDS: Multivitamins with Minerals/Folic Acid/Lutein/Zeaxanth Tab PO SCH (09:19)
[2020-02-19] MEDS: LACTOSE REDUCED FOOD PO SCH (09:19)
[2020-02-19] MEDS: amLODIPine 5 MG Tab PO SCH (09:19)
[2020-02-19] MEDS: Metoprolol Succinate 25 MG Tab.ER PO SCH ×2 (09:20→20:09)
[2020-02-19] MEDS: Polyethylene Glycol 3350 Powder 17 GM Packet PO SCH (09:22)
[2020-02-19] MEDS ORDERED: Lactulose Soln 10 GM/15 ML 30 ML UD Cup PO ONE (09:58)
[2020-02-19] MEDS: Carboxymethylcellulose Sodium 1% Ophth Gel 15 ML Bottle EYEBOTH PRN (10:05)
[2020-02-19] MEDS: Isosorbide Mononitrate 30 MG Tab.ER PO SCH (10:37)
--- NOTE | 2020-02-19 11:19 | PN ---
DATE OF SERVICE: 02/19/2020 The patient was seen, examined, and discussed by me with Feliz Mcdonald PA-C. Ms. Hernández's conditions still remains worrisome. Yesterday, the patient again had a few episodes of paroxysmal atrial fibrillation with RVR. They were very short episodes and lasts not longer than just 5 to 10 seconds and asymptomatic but worrisome incidence of patient with suspected acute coronary syndrome. No chest pain. Vitals remain stable. Yesterday, the patient received 1 dose of Lasix 20 mg IV push. These responded with significant diuresis and now appears euvolemic. We did replace empirical electrolytes, magnesium and potassium. Potassium level today is 6.1, so no need for replacement, but again, we will keep watching to make sure that potassium does not keep going up for patient. As further management for now, we are considering either adding Cardizem CD 120 mg p.o. daily or sotalol 40 mg p.o. twice a day as second beta maikol. The patient does have tendency for bradycardia, so we cannot really increase current dose of metoprolol XL 12.5 mg p.o. b.i.d., but before doing this, we will make sure that patient does not have any episodes of hypoxia that may trigger episodes of paroxysmal atrial fibrillation. For this, we will apply continuous 2 L of nasal cannula oxygen, and we will closely monitor respiratory status. The patient will stay in ICU. For details of the patient's review of systems, interval test results, physical exam, medications, and further plan of management, please see note prepared by Feliz Mcdonald PA-C. MMKELLY /[id number]
[2020-02-19] MEDS ORDERED: Bisacodyl 10 MG Supp RECTAL ONE (11:20)
--- NOTE | 2020-02-19 12:44 | PCM.PN ---
- General Info Date of Service: 02/19/20 - Review of Systems Systems Review Comment:: Patient was seen and examined by me, discussed with Dr. Duffy. At time of exam, patient resting in bed no reports of chest pain. Yesterday evening around 7 PM, patient to having episodes which was seen on telemetry as nonsustained V. tach's, but EKG that was requested at this time indicated aberrant conduction of atrial fibrillation. Meanwhile cardiac enzymes and EKG was within normal limits patient denies any chest pain. His morning, patient did not report any chest pain. Vital signs relatively stable for the patient except for episodes of diarrhea. Nursing staff had concerns about patient's potassium of 6.1. Plan to recheck patient's potassium today. We will try not to treat now given patient's arrhythmias. But if the patient's potassium is elevated at noon we will begin treatment. no other Concerns noted. - Patient Data Vitals - Most Recent: Last Vital Signs Temp 97.8 F 02/19/20 08:00 Pulse 67 02/19/20 09:20 Resp 16 02/19/20 08:00 BP 150/63 H 02/19/20 10:37 Pulse Ox 100 02/19/20 08:25 Weight - Most Recent: 92 lb 3.2 oz I&O - Last 24 Hours: Intake & Output 02/18/20 02/19/20 02/19/20 22:59 06:59 14:59 Intake Total 450 400 120 Balance 450 400 120 Lab Results Last 24 Hours: Laboratory Results - last 24 hr 02/18/20 02/19/20 02/19/20 Range/Units 19:47 06:12 06:12 WBC 5.72 (3.98-10.04) K/mm3 RBC 2.98 L (3.98-5.22) M/mm3 Hgb 8.9 L (11.2-15.7) gm/dl Hct 28.9 L (34.1-44.9) % MCV 97.0 H (79.4-94.8) fl MCH 29.9 (25.6-32.2) pg MCHC 30.8 L (32.2-35.5) g/dl RDW Std Deviation 72.3 H (36.4-46.3) fL Plt Count 441 H (182-369) K/mm3 MPV 10.2 (9.4-12.3) fl Neut % (Auto) 61.1 (34.0-71.1) % Lymph % (Auto) 18.7 L (19.3-51.7) % Wilson % (Auto) 15.4 H (4.7-12.5) % Eos % (Auto) 3.1 (0.7-5.8) Baso % (Auto) 0.5 (0.1-1.2) % Neut # (Auto) 3.49 (1.56-6.13) K/mm3 Lymph # (Auto) 1.07 L (1.18-3.74) K/mm3 Wilson # (Auto) 0.88 H (0.24-0.36) K/mm3 Eos # (Auto) 0.18 (0.04-0.36) K/mm3 Baso # (Auto) 0.03 (0.01-0.08) K/mm3 Manual Slide Review Abnormal smear Sodium 139 (136-145) mEq/L Potassium 6.1 H D (3.5-5.1) mEq/L Chloride 103 (98-107) mEq/L Carbon Dioxide 29 (21-32) mEq/L Anion Gap 13.1 (5-15) BUN 51 H (7-18) mg/dL Creatinine 1.4 H (0.55-1.02) mg/dL Est Cr Clr Drug Dosing 20.81 mL/min Estimated GFR (MDRD) 36 (>60) mL/min BUN/Creatinine Ratio 36.4 H (14-18) Glucose 110 (83-115) mg/dL Calcium 9.0 (8.5-10.1) mg/dL Phosphorus 4.1 (2.6-4.7) mg/dL Total Bilirubin 0.5 (0.2-1.0) mg/dL AST 25 (15-37) U/L ALT 40 (14-59) U/L Alkaline Phosphatase 169 H (46-116) U/L CK-MB (CK-2) 3.5 (0-3.6) ng/ml Troponin I < 0.017 (0.00-0.056) ng/mL Total Protein 7.1 (6.4-8.2) g/dl Albumin 3.5 (3.4-5.0) g/dl Globulin 3.6 gm/dL Albumin/Globulin Ratio 1.0 (1-2) Wing Results Last 24 Hours: Microbiology 02/17/20 15:40 Urine Culture - Final Urine, Bladder NO GROWTH AFTER 2 DAYS Med Orders - Current: Current Medications Albuterol (Proventil Neb Soln) 2.5 mg NEB Q2H PRN PRN Reason: Wheezing Amlodipine Besylate (Norvasc) 5 mg PO DAILY [facility] Last Admin: 02/19/20 09:19 Dose: 5 mg Artificial Tears (Refresh Liquigel 1%) 0 ml EYEBOTH DAILY PRN PRN Reason: DRY EYES Last Admin: 02/19/20 10:05 Dose: 1 drop Cyanocobalamin (Vitamin B12) 500 mcg PO DAILY [facility] Last Admin: 02/19/20 09:18 Dose: 500 mcg Famotidine (Pepcid) 20 mg PO QPM [facility] Last Admin: 02/18/20 17:03 Dose: 20 mg Heparin Sodium (Porcine) (Heparin Sodium) 5,000 units SUBCUT Q12H [facility] Last Admin: 02/19/20 09:16 Dose: 5,000 units Hydralazine HCl (Apresoline) 10 mg IVPUSH Q6H PRN PRN Reason: Hypertension Hydroxyzine HCl (Atarax) 25 mg PO Q6H PRN PRN Reason: Anxiety Sodium Chloride (Normal Saline) 1,000 mls @ 30 mls/hr IV ASDIRECTED [facility] Isosorbide Mononitrate (Imdur) 30 mg PO DAILY [facility] Last Admin: 02/19/20 10:37 Dose: 30 mg Levothyroxine Sodium (Levothyroxine) 75 mcg PO ACBREAKFAST [facility] Last Admin: 02/19/20 05:36 Dose: 75 mcg Metoprolol Succinate (Toprol Xl) 12.5 mg PO BID [facility] Last Admin: 02/19/20 09:20 Dose: 12.5 mg Morphine Sulfate (Morphine) 1 mg IVPUSH Q4H PRN PRN Reason: Pain (severe 7-10) Last Admin: 02/18/20 02:26 Dose: 1 mg Nitroglycerin (Nitrostat) 0.4 mg SL Q5M PRN PRN Reason: Chest Pain Non-Formulary Medication (Biotin [Biotin]) 5,000 mcg PO DAILY [facility] Last Admin: 02/19/20 09:18 Dose: Not Given Non-Formulary Medication (Deferasirox [Jadenu]) 360 mg PO DAILY [facility] Last Admin: 02/19/20 09:17 Dose: Not Given Olanzapine (Zyprexa) 5 mg IM Q8H PRN PRN Reason: Anxiety Ondansetron HCl (Zofran) 4 mg IVPUSH Q4H PRN PRN Reason: Nausea and Vomiting Polyethylene Glycol (Miralax) 17 gm PO DAILY [facility] Last Admin: 02/19/20 09:22 Dose: 17 gm Senna/Docusate Sodium (Senna Plus) 2 tab PO BID [facility] Last Admin: 02/19/20 09:19 Dose: 2 tab Simvastatin (Zocor) 20 mg PO BEDTIME [facility] Last Admin: 02/18/20 20:51 Dose: 20 mg Sucralfate (Carafate) 2 gm PO BEDTIME [facility] Last Admin: 02/18/20 20:51 Dose: 2 gm Tramadol HCl (Ultram) 50 mg PO Q4H PRN PRN Reason: Pain (moderate 4-6) Last Admin: 02/19/20 10:05 Dose: 50 mg Vit A/Vit C/Vit E/Selen/Cu/Zn/Lutei (Icaps Mv) 1 tab PO DAILY [facility] Last Admin: 02/19/20 09:19 Dose: 1 tab Discontinued Medications Acetaminophen (Tylenol) 650 mg PO Q6H PRN PRN Reason: Pain (Mild 1-3) or Fever Acetaminophen (Tylenol) 650 mg RECTAL Q6H PRN PRN Reason: Pain (Mild 1-3) or Fever Aspirin (Halfprin) 81 mg PO DAILY [facility] Bisacodyl (Dulcolax) 10 mg RECTAL ONETIME ONE Stop: 02/19/20 11:21 Last Admin: 02/19/20 11:26 Dose: 10 mg Diltiazem HCl (Cardizem Cd) 120 mg PO DAILY [facility] Last Admin: 02/19/20 09:18 Dose: Not Given Furosemide (Lasix) 40 mg IVPUSH NOW ONE Stop: 02/18/20 07:07 Last Admin: 02/18/20 08:05 Dose: 40 mg Ceftriaxone Sodium 1 gm/ (Sodium Chloride) 100 mls @ 200 mls/hr IV Q24H [facility] Last Admin: 02/17/20 19:01 Dose: 200 mls/hr Magnesium Sulfate/Dextrose 1 (gm/ Premix) 100 mls @ 100 mls/hr IV Q1H [facility] Stop: 02/17/20 21:44 Last Admin: 02/17/20 21:48 Dose: Not Given Ceftriaxone Sodium 1 gm/ (Sodium Chloride) 100 mls @ 200 mls/hr IV Q24H [facility] Last Admin: 02/18/20 17:03 Dose: 200 mls/hr Lactulose (Cephulac) 20 gm PO ONETIME ONE Stop: 02/19/20 09:59 Last Admin: 02/19/20 10:30 Dose: 20 gm Metoprolol Tartrate (Lopressor) Confirm Administered Dose 5 mg .ROUTE .STK-MED ONE Stop: 02/18/20 19:47 Last Admin: 02/18/20 20:00 Dose: Not Given Metoprolol Tartrate (Lopressor) 2.5 mg IVPUSH ONETIME ONE Stop: 02/18/20 19:41 Last Admin: 02/18/20 20:00 Dose: 2.5 mg Non-Formulary Medication (Carboxymethylcellulose Sodium [Artificial Tears]) 1 drop EYEBOTH DAILY PRN PRN Reason: Dry Eyes Non-Formulary Medication (Lactose-Reduced Food [Ensure]) 4 oz PO BID [facility] Last Admin: 02/19/20 09:19 Dose: Not Given Non-Formulary Medication (Lutein/Min/Vit C/Vit E Acetate) 1 cap PO DAILY [facility] Last Admin: 02/18/20 09:45 Dose: Not Given Oxycodone HCl (Oxycodone) 5 mg PO Q6H PRN PRN Reason: moderate pain 4-6/10 Last Admin: 02/19/20 01:30 Dose: 5 mg Polyethylene Glycol (Miralax) 17 gm PO ONETIME ONE Stop: 02/18/20 14:01 Last Admin: 02/18/20 15:08 Dose: 17 gm Potassium Chloride (Klor-Con M20) 40 meq PO ONETIME ONE Stop: 02/18/20 07:07 Last Admin: 02/18/20 08:05 Dose: 40 meq Potassium Chloride (Klor-Con M20) 40 meq PO ONETIME ONE Stop: 02/18/20 19:56 Last Admin: 02/18/20 19:55 Dose: 40 meq - Exam General: Alert, Oriented, Cooperative HEENT: Pupils Equal, Pupils Reactive, EOMI Neck: Supple, Trachea Midline Lungs: Clear to Auscultation, Normal Respiratory Effort Cardiovascular: Regular Rate, Irregular Rhythm GI/Abdominal Exam: Normal Bowel Sounds, Non-Tender, Other (mild distention noted but without tenderness.) Back Exam: Normal Inspection, Full Range of Motion Extremities: Normal Inspection, Normal Range of Motion, Non-Tender, No Pedal Edema, Normal Capillary Refill Skin: Warm, Dry, Intact Neurological: No New Focal Deficit, Strength Equal Bilateral Psy/Mental Status: Alert, Normal Affect, Normal Mood Sepsis Event Note - Evaluation Sepsis Screening Result: No Definite Risk - Focused Exam Vital Signs: Vital Signs Temp Pulse Resp BP BP Pulse Ox Pulse Ox 02/19/20 10:37 150/63 H 02/19/20 09:20 67 164/72 H 02/19/20 09:19 164/72 H 02/19/20 08:25 100 02/19/20 08:00 97.8 F 59 L 16 150/64 H 100 02/19/20 04:00 97.1 F 63 14 139/64 100 Date Exam was Performed: 02/19/20 Time Exam was Performed: 12:34 - Problem List Review Problem List Initiated/Reviewed/Updated: Yes - My Orders Last 24 Hours: My Active Orders 02/18/20 13:06 Carboxymethylcellulose Sodium [Refresh Liquigel 1%] 0 ml EYEBOTH DAILY PRN 02/18/20 19:30 EKG 12 Lead [EK] Stat 02/18/20 19:31 EKG Documentation Completion [RC] ASDIRECTED 02/19/20 07:26 Echo Comp wo Cont [US] Routine 02/19/20 09:00 Multivitamins/Min/FA/Lut/Zeax [ICaps MV] 1 tab PO DAILY 02/19/20 12:00 POTASSIUM,K [CHEM] Routine 02/20/20 05:11 CBC WITH AUTO DIFF [HEME] AM CMP [COMPREHENSIVE METABOLIC PN,CMP] [CHEM] AM MAGNESIUM (PHARM SOLN) [CHEM] DAILY 02/21/20 05:11 CMP [COMPREHENSIVE METABOLIC PN,CMP] [CHEM] AM - Assessment Assessment:: Assessment/Plan Comment:: Acute hypoxemic respiratory failure: Patient's oxygen saturation has been above 90. But given the patient's episodes of recurrent arrhythmias, that could be due to thoughts of hypoxia, will keep the patient on supplemental oxygen. prior to discharge, will recommend exercise oximetry to make sure patient needs oxygen continuously. Metabolic hypoxic encephalopathy: The patient is back to her usual baseline, no obvious signs of confusion noted at time of my exam. We will continue to monitor patient closely. Fluid over load: On admission, patient noted with signs of fluid overload, given 1 dose of Lasix, today no significant leg swelling is noted. We will continue to monitor patient signs of fluid retention. Cardiovascular risk/nonsustained V. tach rule out acute coronary syndrome: Reports of chest pain or palpitations. But yesterday evening, patient kept having episodes of nonsustained V. tach's on telemetry. EKG that was done to the patient showed signs of aberrant atrial fibrillation patient's electrolytes were replaced at this time. And was given 1 dose of metoprolol 2.5 IV. Goal will be to request echocardiogram evaluation patient will continue telemetry monitoring. Continue metoprolol 12.5 mg p.o. twice daily hold for systolic blood pressure less than 90 heart rate less than 60. Given patient's allergy to pain, high risk of bleeding, patient cannot be given Plavix but will continue to monitor closely. We will start the patient on Imdur 30 mg p.o. daily. Hyperkalemia: Potassium this morning 6.1. 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 Hypertension: Pressure at time of my exam normotensive, 139/64 continue Metoprolol 12.5 mg PO bid (will hold dose if HR<60/min or SBP<90 mmHg). Continue home dose of Norvasc 5 mg p.o. daily . will start Hydralazine 10 mg IVP q 6 hours as needed for SBP > 180 mmHg). Home vasodilators will be on hold for now but might restart later if BP higher than the target level. Dyslipidemia: Lipid profile was checked, triglycerides 132 LDL 201 HDL 114 cholesterol 61. Continue simvastatin 20 mg p.o. nightly, Functional tetraplegia: She is debilitated, will consult with therapy for strengthening. will advised patient to return every 2 hours. Frequent falls: It has been reported the patient has been falling frequently, patient also has bruises. I believe because of frequent falls is due to patient 's multiple narcotic medications for now, see patient is on a new patch along with baclofen which can also cause increased sedation. We will hold these medications for now. For pain control patient will be on hydrocodone 5/325 1 tablet p.o. a moderate pain. Pain control: 50 mg every 4 hours moderate pain, hold NSAIDs for now due to increased risk of bleeding. Hypothyroidism. Will continue the home dose of Synthroid 75 mcg q am. States was checked, within normal limits. Restlessness or Allergies: Zyprexa 5mg IV Q4H PRN restlessness or agitation. Nausea: In case of nausea use Zofran 4mg IVP Q4H PRN nausea. DVT Prophylaxis: Heparin 5,000 units subQ Q12H (dose adjusted to age and renal function). We will keep monitoring H&H and platelet count. UGI Bleed Prophylaxis: Protonix 40mg PO QPM before dinner, Mylanta 30 mL q4h PRN indigestion. Constipation Prophylaxis: She has not had a bowel movement for the past 3 days. Give 1 dose of lactulose, continue Senokot S 2 tabs PO BID, MiraLAX 17 grams PO at 1400 daily PRN no bowl movement, no bowel movement tomorrow, will give patient enemas. Status: DNR.
[2020-02-19] MEDS: Famotidine 20 MG Tab PO SCH (18:22)
[2020-02-19] MEDS: Sucralfate 1 GM Tab PO SCH (20:09)
[2020-02-19] MEDS: Simvastatin 20 MG Tab PO SCH (20:10)
[2020-02-19] MEDS: Morphine 2 MG/ML Syringe IVPUSH PRN (20:11)
[2020-02-19] MEDS: hydrOXYzine HCl 25 MG Tab PO PRN (22:56)
[2020-02-20] MEDS: Levothyroxine 75 MCG Tab PO SCH (05:02)
--- NOTE | 2020-02-20 08:36 | HP ---
DATE OF ADMISSION: 02/17/2020 ADDENDUM: CHIEF COMPLAINT: Confusion and frequent falls. PAST MEDICAL HISTORY: Significant for a history of remote CVA and TIA, rheumatoid arthritis, osteoporosis, COPD, hypertension, glaucoma, reported first-degree AV block, history of remote compression fractures, remote history of smoking, myelodysplastic syndrome with microcytic anemia, vitamin B12 deficiency, and reported history of CHF with unknown left ventricular ejection fraction. The patient was seen, examined, and discussed by me with Feliz Mcdonald PA-C. HISTORY OF PRESENT ILLNESS: Ms. Hernández is an 79-year-old white female resident of [facility] with functional tetraplegia as above, was brought to the emergency room from a [facility] after the patient had repeat falls and appeared much more confused than usually. On admission, the patient was found hypoxic with pulse ox 79% to 82% on room air and was placed on 2 L of nasal cannula oxygen. After this, pulse ox came up to 91% to 94%, but confusion persisted. Further workup found that the patient has elevated creatinine, 1.7, with baseline creatinine for the patient in the range from 1.6 to 1.8, but other than this, the patient was complaining of frequency on urination with no obviously infected urine. A 12- lead EKG did not show any signs of acute myocardial damage, and cardiac enzymes were normal, but EKG monitoring showed that the patient had multiple episodes of AFib with aberrant conduction that the patient does not have a history of. Vitals were stable other than pulse ox as above. Head CT and chest and abdomen CT did not reveal any acute abnormalities. Cardiac enzymes were taken and came back within normal limits. The patient did not report any chest pain, even though her data is unreliable because of dementia and acute on top of chronic confusion for the patient. Given the patient's age, history, clinical presentation, and results of tests with diagnoses acute hypoxemic respiratory failure, possible acute coronary syndrome, new onset of paroxysmal AFib, and possible urinary tract infection, the patient will be admitted to the ICU for further workup and management. ASSESSMENT: On further management, we will provide oxygen supplementation, and we will keep watch on the patient's respiratory status, and we will keep watch on the patient's mental status. It looks like on admission, the patient had hypoxic encephalopathy, and I hope for resolution of this hypoxic encephalopathy. We will do all 3 sets of cardiac enzymes and EKGs. Because of suspicions for acute coronary syndrome, the patient will be on baby aspirin, small doses of beta- blockers, and statins, but we will not apply full-blown anticoagulation because the patient already has multiple bruises from frequent falls, and she has pretty significant anemia with hemoglobin 8.4, though this hemoglobin seemed to be stable for the patient. On admission, we also found that the patient has bilateral leg swelling, +1, but otherwise, she does not seem to be fluid overloaded at this moment, and the swelling seemed to be secondary to dependent edema. We will keep watching. VAHID hoses will be applied. We will keep checking and replacing electrolytes as needed. IV fluids will be extremely cautious. For suspected urinary tract infection, we will repeat UA, but we will start the patient empirically on Rocephin 1 g IV q.24 hours, given the patient's complaint of frequency on urination that started just today. The course of antibiotics though will be short. Anticipated hospital stay is approximately 72 to 96 hours if no acute issues, but prognosis is guarded. The patient's status is DNR. For details of the patient's history, clinical presentation, test results, physical exam, medications, and further plan of management, please see the H and P note prepared by Feliz Mcdonald PA-C, that I discussed with Feliz in detail at the time of the admission visit. ELECTROCARDIOGRAM: EKG was done in the emergency room on 02/17/2020 at 4:24 p.m. and reviewed and interpreted by me as following: Sinus rhythm, 95 per minute, first-degree AV block with ME interval seconds. The patient has couplets of PACs and signs of LVH. One of the PACs had aberrant intraventricular conduction, but otherwise, QRS interval was normal. No overt signs of acute myocardial damage, but there are Q waves in leads II and AV3, could be positional but remote inferior wall MT also possibility. This was a critical care visit. The total time spent on the patient's critical care and coordination of critical care by the time of dictation of this note was 40 minutes. We will keep following up with the patient. MMODAL /[id number]
--- NOTE | 2020-02-20 09:54 | PN ---
DATE OF SERVICE: 02/18/2020 ADDENDUM: The patient was seen, examined, and discussed by me with Feliz Mcdonald PA-C. The patient height was admitted yesterday to ICU with acute hypoxemic respiratory failure, acute coronary syndrome, and multiple episodes of paroxysmal atrial fibrillation. She was started on beta blockers, Pravachol, small doses of nitrates, and oxygen supplementation. Pulse ox remained stable, and for now, the patient is on 1 L of nasal cannula oxygen, pulse ox is 99% to 100%. The patient's mental status improved. The patient had all 3 sets of cardiac enzymes and EKGs done, negative for acute myocardial damage. We are treating the patient for presumable urinary tract infection even though it was not confirmed with UA, but the patient had clinical signs of this. It is worth to mention that plan was to start the patient on anti-aggregation yesterday on admission, but we could not do this because the patient is allergic to aspirin, and she absolutely refused to take Plavix because of her bleeding tendency and multiple bruises that we already found with the patient on admission. For the same reason, we did not go with full anticoagulation, but the patient is on heparin 5000 mg subcu q.12 hours. At this moment, we will continue previously established care. We will keep watching the patient clinically. Tomorrow morning, we will check the patient with exercise oximetry on room, and we will do nocturnal oximetry to verify if the patient does or does not require oxygen supplementation upon discharge back to nursing facility. Today, the patient will stay in ICU. If she keeps trend for improvement, expect transfer to med/surg floor telemetry tomorrow and discharge back to nursing facility on 02/20/2020. For details of the patient's review of systems, interval test results, physical exam, medications, and further plan of management, please see note prepared by Feliz Mcdonald PA-C. MMODAL /[id number]
[2020-02-20] MEDS: traMADol 50 MG Tab PO PRN ×3 (11:08→20:43)
[2020-02-20] MEDS: Multivitamins with Minerals/Folic Acid/Lutein/Zeaxanth Tab PO SCH (13:21)
[2020-02-20] MEDS: Cyanocobalamin (Vitamin B12) 1,000 MCG Tab PO SCH (13:21)
[2020-02-20] MEDS: Heparin Sodium 5,000 Units/ML Vial SUBCUT SCH ×2 (13:21→20:01)
[2020-02-20] MEDS: amLODIPine 10 MG Tab PO SCH ×3 (13:22→13:24)
[2020-02-20] MEDS: Isosorbide Mononitrate 30 MG Tab.ER PO SCH (13:23)
[2020-02-20] MEDS: Polyethylene Glycol 3350 Powder 17 GM Packet PO SCH (13:23)
[2020-02-20] MEDS: DEFERASIROX PO SCH (13:23)
[2020-02-20] MEDS: Metoprolol Succinate 25 MG Tab.ER PO SCH ×2 (13:23→20:02)
[2020-02-20] MEDS: Non-Formulary Medication 1 Each (Biotin [Biotin] 5,000 MCG) PO SCH (13:24)
[2020-02-20] MEDS: amLODIPine 5 MG Tab PO SCH (13:32)
--- NOTE | 2020-02-20 14:27 | PN ---
DATE OF SERVICE: 02/20/2020 ADDENDUM: The patient was seen, examined, and discussed by me with Feliz Mcdonald PA-C. The patient was established on 2 L of nasal cannula oxygen continuously, pulse ox remains very stable at 95% to 100%, and patient did not have anymore episodes of AFib with aberrant conduction. Overall, the patient feels well, but we learned from Physical Therapy and nurses that the patient is basically two person support, and after we got in touch with the patient's assisted living facility, they confirmed that the patient is like this for a long period of time. So it looks like assisted living facility may not be a good home for Ms. Hernández who requires much more nursing care and our case preparer and liner is now working on placement for patient to nursing facility. Otherwise, no chest pain. Heart rate is stable. The patient's blood pressure on the higher side and we are going down on Norvasc. H and H are stable, 7.8. No signs of bleeding. If no acute problems and after safe discharge plan arranged, I expect the patient to be discharged from the hospital tomorrow. For details of the patient's review of systems, interval test results, physical exam, medications, and further plan of management, please see note prepared by Feliz Mcdonald PA-C. ANALI /[id number]
--- NOTE | 2020-02-20 14:38 | PCM.PN ---
- General Info Date of Service: 02/20/20 - Review of Systems Systems Review Comment:: The patient was seen and examined by me and discussed with Dr. Duffy. At the time of my exam, the patient was resting in bed. Nursing staff reported the patient still appears very weak, at time of my exam patient in bed states she feels weak appears debilitated. Otherwise patient is eating and drinking modest amount of her meals. Has had one bowel movement., I had a chance to discuss with the patient's oncologist Dr. Lopes ported that if the patient has to get of Jadenu, and the patient might require occasional transfusions. At the same time, not requiring transfusion the patient when patient's H&H is above 7.5. Otherwise no other acute complaints reported vital signs at time of my exam T-max 159/67 with pulse of 7. Nursing staff did not report any tacky arrhythmias overnight. - Patient Data Vitals - Most Recent: Last Vital Signs Temp 98.4 F 02/20/20 12:00 Pulse 68 02/20/20 13:23 Resp 20 02/20/20 12:00 BP 174/75 H 02/20/20 13:24 Pulse Ox 100 02/20/20 12:00 Weight - Most Recent: 93 lb 6.4 oz I&O - Last 24 Hours: Intake & Output 02/19/20 02/20/20 02/20/20 22:59 06:59 14:59 Intake Total 810 Output Total 175 200 Balance 635 -200 Lab Results Last 24 Hours: Laboratory Results - last 24 hr 02/20/20 02/20/20 Range/Units 04:42 04:42 WBC 4.93 (3.98-10.04) K/mm3 RBC 2.62 L (3.98-5.22) M/mm3 Hgb 7.8 L (11.2-15.7) gm/dl Hct 25.6 L (34.1-44.9) % MCV 97.7 H (79.4-94.8) fl MCH 29.8 (25.6-32.2) pg MCHC 30.5 L (32.2-35.5) g/dl RDW Std Deviation 72.4 H (36.4-46.3) fL Plt Count 426 H (182-369) K/mm3 MPV 10.1 (9.4-12.3) fl Neut % (Auto) 56.8 (34.0-71.1) % Lymph % (Auto) 23.1 (19.3-51.7) % Spencer % (Auto) 14.0 H (4.7-12.5) % Eos % (Auto) 5.5 (0.7-5.8) Baso % (Auto) 0.2 (0.1-1.2) % Neut # (Auto) 2.80 (1.56-6.13) K/mm3 Lymph # (Auto) 1.14 L (1.18-3.74) K/mm3 Spencer # (Auto) 0.69 H (0.24-0.36) K/mm3 Eos # (Auto) 0.27 (0.04-0.36) K/mm3 Baso # (Auto) 0.01 (0.01-0.08) K/mm3 Manual Slide Review Abnormal smear Sodium 139 (136-145) mEq/L Potassium 5.2 H (3.5-5.1) mEq/L Chloride 104 (98-107) mEq/L Carbon Dioxide 28 (21-32) mEq/L Anion Gap 12.2 (5-15) BUN 46 H (7-18) mg/dL Creatinine 1.3 H (0.55-1.02) mg/dL Est Cr Clr Drug Dosing 22.70 mL/min Estimated GFR (MDRD) 39 (>60) mL/min BUN/Creatinine Ratio 35.4 H (14-18) Glucose 92 (83-115) mg/dL Calcium 8.9 (8.5-10.1) mg/dL Total Bilirubin 0.5 (0.2-1.0) mg/dL AST 24 (15-37) U/L ALT 36 (14-59) U/L Alkaline Phosphatase 168 H (46-116) U/L Total Protein 6.7 (6.4-8.2) g/dl Albumin 3.5 (3.4-5.0) g/dl Globulin 3.2 gm/dL Albumin/Globulin Ratio 1.1 (1-2) Wing Results Last 24 Hours: Microbiology 02/17/20 15:40 Urine Culture - Final Urine, Bladder NO GROWTH AFTER 2 DAYS Med Orders - Current: Current Medications Albuterol (Proventil Neb Soln) 2.5 mg NEB Q2H PRN PRN Reason: Wheezing Amlodipine Besylate (Norvasc) 10 mg PO DAILY [facility] Last Admin: 02/20/20 13:24 Dose: 10 mg Artificial Tears (Refresh Liquigel 1%) 0 ml EYEBOTH DAILY PRN PRN Reason: DRY EYES Last Admin: 02/19/20 10:05 Dose: 1 drop Cyanocobalamin (Vitamin B12) 500 mcg PO DAILY [facility] Last Admin: 02/20/20 13:21 Dose: 500 mcg Famotidine (Pepcid) 20 mg PO QPM [facility] Last Admin: 02/19/20 18:22 Dose: 20 mg Heparin Sodium (Porcine) (Heparin Sodium) 5,000 units SUBCUT Q12H [facility] Last Admin: 02/20/20 13:21 Dose: 5,000 units Hydralazine HCl (Apresoline) 10 mg IVPUSH Q6H PRN PRN Reason: Hypertension Hydroxyzine HCl (Atarax) 25 mg PO Q6H PRN PRN Reason: Anxiety Last Admin: 02/19/20 22:56 Dose: 25 mg Sodium Chloride (Normal Saline) 1,000 mls @ 30 mls/hr IV ASDIRECTED [facility] Isosorbide Mononitrate (Imdur) 30 mg PO DAILY [facility] Last Admin: 02/20/20 13:23 Dose: 30 mg Levothyroxine Sodium (Levothyroxine) 75 mcg PO ACBREAKFAST [facility] Last Admin: 02/20/20 05:02 Dose: 75 mcg Losartan Potassium (Cozaar) 50 mg PO QPM [facility] Metoprolol Succinate (Toprol Xl) 12.5 mg PO BID [facility] Last Admin: 02/20/20 13:23 Dose: 12.5 mg Morphine Sulfate (Morphine) 1 mg IVPUSH Q4H PRN PRN Reason: Pain (severe 7-10) Last Admin: 02/19/20 20:11 Dose: 1 mg Nitroglycerin (Nitrostat) 0.4 mg SL Q5M PRN PRN Reason: Chest Pain Non-Formulary Medication (Biotin [Biotin]) 5,000 mcg PO DAILY [facility] Last Admin: 02/20/20 13:24 Dose: Not Given Jadenu (Deferasirox) 360 Mg PtkOwn Med 0 mg PO DAILY [facility] Last Admin: 02/20/20 13:23 Dose: 360 mg Olanzapine (Zyprexa) 5 mg IM Q8H PRN PRN Reason: Anxiety Ondansetron HCl (Zofran) 4 mg IVPUSH Q4H PRN PRN Reason: Nausea and Vomiting Polyethylene Glycol (Miralax) 17 gm PO DAILY [facility] Last Admin: 02/20/20 13:23 Dose: 17 gm Senna/Docusate Sodium (Senna Plus) 2 tab PO BID [facility] Last Admin: 02/20/20 13:24 Dose: 2 tab Simvastatin (Zocor) 20 mg PO BEDTIME [facility] Last Admin: 02/19/20 20:10 Dose: 20 mg Sucralfate (Carafate) 2 gm PO BEDTIME [facility] Last Admin: 02/19/20 20:09 Dose: 2 gm Tramadol HCl (Ultram) 50 mg PO Q4H PRN PRN Reason: Pain (moderate 4-6) Last Admin: 02/20/20 11:08 Dose: 50 mg Vit A/Vit C/Vit E/Selen/Cu/Zn/Lutei (Icaps Mv) 1 tab PO DAILY [facility] Last Admin: 02/20/20 13:21 Dose: 1 tab Discontinued Medications Acetaminophen (Tylenol) 650 mg PO Q6H PRN PRN Reason: Pain (Mild 1-3) or Fever Acetaminophen (Tylenol) 650 mg RECTAL Q6H PRN PRN Reason: Pain (Mild 1-3) or Fever Amlodipine Besylate (Norvasc) 5 mg PO DAILY [facility] Last Admin: 02/20/20 13:32 Dose: Not Given Aspirin (Halfprin) 81 mg PO DAILY [facility] Bisacodyl (Dulcolax) 10 mg RECTAL ONETIME ONE Stop: 02/19/20 11:21 Last Admin: 02/19/20 11:26 Dose: 10 mg Diltiazem HCl (Cardizem Cd) 120 mg PO DAILY [facility] Last Admin: 02/19/20 09:18 Dose: Not Given Furosemide (Lasix) 40 mg IVPUSH NOW ONE Stop: 02/18/20 07:07 Last Admin: 02/18/20 08:05 Dose: 40 mg Ceftriaxone Sodium 1 gm/ (Sodium Chloride) 100 mls @ 200 mls/hr IV Q24H [facility] Last Admin: 02/17/20 19:01 Dose: 200 mls/hr Magnesium Sulfate/Dextrose 1 (gm/ Premix) 100 mls @ 100 mls/hr IV Q1H [facility] Stop: 02/17/20 21:44 Last Admin: 02/17/20 21:48 Dose: Not Given Ceftriaxone Sodium 1 gm/ (Sodium Chloride) 100 mls @ 200 mls/hr IV Q24H [facility] Last Admin: 02/18/20 17:03 Dose: 200 mls/hr Lactulose (Cephulac) 20 gm PO ONETIME ONE Stop: 02/19/20 09:59 Last Admin: 02/19/20 10:30 Dose: 20 gm Metoprolol Tartrate (Lopressor) Confirm Administered Dose 5 mg .ROUTE .STK-MED ONE Stop: 02/18/20 19:47 Last Admin: 02/18/20 20:00 Dose: Not Given Metoprolol Tartrate (Lopressor) 2.5 mg IVPUSH ONETIME ONE Stop: 02/18/20 19:41 Last Admin: 02/18/20 20:00 Dose: 2.5 mg Non-Formulary Medication (Carboxymethylcellulose Sodium [Artificial Tears]) 1 drop EYEBOTH DAILY PRN PRN Reason: Dry Eyes Non-Formulary Medication (Deferasirox [Jadenu]) 360 mg PO DAILY [facility] Last Admin: 02/19/20 09:17 Dose: Not Given Non-Formulary Medication (Lactose-Reduced Food [Ensure]) 4 oz PO BID [facility] Last Admin: 02/19/20 09:19 Dose: Not Given Non-Formulary Medication (Lutein/Min/Vit C/Vit E Acetate) 1 cap PO DAILY [facility] Last Admin: 02/18/20 09:45 Dose: Not Given Oxycodone HCl (Oxycodone) 5 mg PO Q6H PRN PRN Reason: moderate pain 4-6/10 Last Admin: 02/19/20 01:30 Dose: 5 mg Polyethylene Glycol (Miralax) 17 gm PO ONETIME ONE Stop: 02/18/20 14:01 Last Admin: 02/18/20 15:08 Dose: 17 gm Potassium Chloride (Klor-Con M20) 40 meq PO ONETIME ONE Stop: 02/18/20 07:07 Last Admin: 02/18/20 08:05 Dose: 40 meq Potassium Chloride (Klor-Con M20) 40 meq PO ONETIME ONE Stop: 02/18/20 19:56 Last Admin: 02/18/20 19:55 Dose: 40 meq - Exam General: Alert, Oriented, No Acute Distress, Other (But the patient looks weak.) HEENT: Pupils Reactive, EOMI, Mucous Membr. Moist/[place] Neck: Supple, Trachea Midline Lungs: Clear to Auscultation, Decreased Breath Sounds Cardiovascular: Regular Rate, Regular Rhythm GI/Abdominal Exam: Normal Bowel Sounds, Soft, Distended (slightly but not tender ) Back Exam: Normal Inspection, Full Range of Motion Extremities: Normal Inspection, Normal Range of Motion Skin: Other (multiple skin brusis noted. ) Neurological: No New Focal Deficit Psy/Mental Status: Alert, Normal Affect, Normal Mood Sepsis Event Note - Evaluation Sepsis Screening Result: No Definite Risk - Focused Exam Vital Signs: Vital Signs Temp Pulse Resp BP BP Pulse Ox 02/20/20 13:24 174/75 H 02/20/20 13:23 68 150/68 H 02/20/20 13:22 150/68 H 02/20/20 12:00 98.4 F 20 174/75 H 100 02/20/20 07:34 98.2 F 20 166/78 H 100 02/20/20 04:00 97.0 F 67 15 159/67 H 100 Date Exam was Performed: 02/20/20 Time Exam was Performed: 14:26 - Problem List Review Problem List Initiated/Reviewed/Updated: Yes - My Orders Last 24 Hours: My Active Orders 02/20/20 09:00 Deferasirox [Jadenu] 0 mg PO DAILY 02/20/20 10:06 Patient Status [ADT] Routine 02/20/20 18:00 Losartan [Cozaar] 50 mg PO QPM 02/21/20 05:11 CBC WITH AUTO DIFF [HEME] AM CMP [COMPREHENSIVE METABOLIC PN,CMP] [CHEM] AM MAGNESIUM (PHARM SOLN) [CHEM] DAILY 02/21/20 12:41 CMP [COMPREHENSIVE METABOLIC PN,CMP] [CHEM] Routine - Assessment Assessment:: Assessment/Plan Comment: Debility/deconditioning: Patient still appears weak, at this time, given the patient lives at an assisted living, and given the patient's overall presentation I believe the patient will require correction placement. But given the patient is currently on Jadenu for her myelodysplastic syndrome placement is difficult. Today I had a chance to discuss with the patient's oncologist Dr. LOPES who recommended that if stopping this medication, the patient will require occasional transfusions but at the moment does not recommend transfusion with the patient's H&H of 7.8/25.6. At the same time if this medication is discontinued, will recommend CBC every 3 weeks and ferritin every quarter. Plan is discussed with family about recommendations meanwhile will continue to monitor H&H continue physical therapy. Hypertension: The patient's blood pressure has been persistently elevated today , will increase dose of Norvasc from 5 mg to 10 mg p.o. nightly, Cozaar 50 mg every afternoon. Patient will be on hydralazine 10 mg as needed sister blood pressure greater than 180. Cardiovascular risk/nonsustained V. tach rule out acute coronary syndrome/ aberrant conduction of atrial fibrillation: She has been having tachyarrhythmias , over the past 24 hours nursing staff have not reported any more symptoms. Echocardiogram requested today. We will continue the patient on metoprolol 12.5 mg p.o. twice daily, continue Imdur 30 mg p.o. daily, continue to monitor and replace electrolytes which are the moment stable. Acute hypoxemic respiratory failure: Saturations have stayed above 90, continue supplemental oxygen and as needed breathing treatments. Fluid over load: No obvious signs of fluid overload noted today. Continue to monitor patient for signs of fluid overload. Hyperkalemia: resolved. Today, the patient's potassium 5.2. We will continue to monitor. . Dyslipidemia: Lipid profile was checked, triglycerides 132 LDL 201 HDL 114 cholesterol 61. Continue simvastatin 20 mg p.o. nightly, Functional tetraplegia: She is debilitated, will consult with therapy for strengthening. will advised patient to return every 2 hours. Frequent falls: It has been reported the patient has been falling frequently, patient also has bruises. I believe because of frequent falls is due to patient 's multiple narcotic medications for now, see patient is on a new patch along with baclofen which can also cause increased sedation. We will hold these medications for now. For pain control patient will be on hydrocodone 5/325 1 tablet p.o. a moderate pain. Pain control: 50 mg every 4 hours moderate pain, hold NSAIDs for now due to increased risk of bleeding. Hypothyroidism. Will continue the home dose of Synthroid 75 mcg q am. States was checked, within normal limits. Restlessness or Allergies: Zyprexa 5mg IV Q4H PRN restlessness or agitation. Nausea: In case of nausea use Zofran 4mg IVP Q4H PRN nausea. DVT Prophylaxis: Heparin 5,000 units subQ Q12H (dose adjusted to age and renal function). We will keep monitoring H&H and platelet count. UGI Bleed Prophylaxis: Protonix 40mg PO QPM before dinner, Mylanta 30 mL q4h PRN indigestion. Constipation Prophylaxis: The patient has had 1 bowel movement, continue Senokot S 2 tabs PO BID, MiraLAX 17 grams PO at 1400 daily PRN no bowl movement , no bowel movement tomorrow, will give patient enemas. Status: DNR. - Plan Plan:: .
[2020-02-20] MEDS: Famotidine 20 MG Tab PO SCH (18:00)
[2020-02-20] MEDS: Losartan 100 MG Tab PO SCH (18:00)
[2020-02-20] MEDS: Carboxymethylcellulose Sodium 1% Ophth Gel 15 ML Bottle EYEBOTH PRN (18:05)
[2020-02-20] MEDS: Sucralfate 1 GM Tab PO SCH (20:01)
[2020-02-20] MEDS: Simvastatin 20 MG Tab PO SCH (20:03)
[2020-02-20] MEDS: Ondansetron 4 MG/2 ML SDV IVPUSH PRN (23:27)
[2020-02-20] MEDS: hydrOXYzine HCl 25 MG Tab PO PRN (23:31)
[2020-02-21] MEDS: Morphine 2 MG/ML Syringe IVPUSH PRN ×2 (01:09→11:05)
[2020-02-21] MEDS: Ondansetron 4 MG/2 ML SDV IVPUSH PRN ×2 (04:57→20:17)
[2020-02-21] MEDS: traMADol 50 MG Tab PO PRN ×3 (04:59→21:04)
[2020-02-21] MEDS: Levothyroxine 75 MCG Tab PO SCH (04:59)
[2020-02-21] MEDS ORDERED: Furosemide 20 MG/2 ML VIAL IVPUSH ONE (08:09)
[2020-02-21] MEDS: amLODIPine 10 MG Tab PO SCH (08:59)
[2020-02-21] MEDS: Metoprolol Succinate 25 MG Tab.ER PO SCH ×2 (09:00→21:03)
[2020-02-21] MEDS: Heparin Sodium 5,000 Units/ML Vial SUBCUT SCH ×2 (09:00→21:03)
[2020-02-21] MEDS: Cyanocobalamin (Vitamin B12) 1,000 MCG Tab PO SCH (09:00)
[2020-02-21] MEDS: Multivitamins with Minerals/Folic Acid/Lutein/Zeaxanth Tab PO SCH (09:00)
[2020-02-21] MEDS: Isosorbide Mononitrate 30 MG Tab.ER PO SCH (09:00)
[2020-02-21] MEDS: Non-Formulary Medication 1 Each (Biotin [Biotin] 5,000 MCG) PO SCH (09:01)
[2020-02-21] MEDS: Polyethylene Glycol 3350 Powder 17 GM Packet PO SCH (09:01)
[2020-02-21] MEDS: DEFERASIROX PO SCH (09:01)
--- NOTE | 2020-02-21 09:20 | PCM.PN ---
- General Info Date of Service: 02/21/20 - Review of Systems Systems Review Comment:: The patient was seen was seen and examined by me and discussed with Dr. Duffy. At the time of my patient resting in bed does not appear to be in acute distress today looks somewhat cheerful today compared to yesterday. No fevers no chills, no calls overnight on telemetry. No reports of chest pain or palpitation. Patient appears to be satting well on 2 L of oxygen. Patient is eating and drinking appropriately. Has had multiple bowel movements. Nursing staff did not report any acute events with the patient overnight. Of my exam, vital signs blood pressure 157/79 pulse oximetry 98, on 2 L, pulse 60 respirations 16. - Patient Data Vitals - Most Recent: Last Vital Signs Temp 97.9 F 02/21/20 08:37 Pulse 67 02/21/20 09:00 Resp 18 02/21/20 08:37 BP 175/81 H 02/21/20 09:00 Pulse Ox 100 02/21/20 08:37 Weight - Most Recent: 91 lb 11.2 oz I&O - Last 24 Hours: Intake & Output 02/20/20 02/21/20 02/21/20 22:59 06:59 14:59 Intake Total 250 Output Total 450 Balance -200 Lab Results Last 24 Hours: Laboratory Results - last 24 hr 02/21/20 02/21/20 Range/Units 05:27 05:27 WBC 4.97 (3.98-10.04) K/mm3 RBC 2.58 L (3.98-5.22) M/mm3 Hgb 7.5 L (11.2-15.7) gm/dl Hct 25.5 L (34.1-44.9) % MCV 98.8 H (79.4-94.8) fl MCH 29.1 (25.6-32.2) pg MCHC 29.4 L (32.2-35.5) g/dl RDW Std Deviation 72.9 H (36.4-46.3) fL Plt Count 439 H (182-369) K/mm3 MPV 10.2 (9.4-12.3) fl Neut % (Auto) 61.6 (34.0-71.1) % Lymph % (Auto) 18.9 L (19.3-51.7) % Franklin % (Auto) 13.5 H (4.7-12.5) % Eos % (Auto) 5.0 (0.7-5.8) Baso % (Auto) 0.8 (0.1-1.2) % Neut # (Auto) 3.06 (1.56-6.13) K/mm3 Lymph # (Auto) 0.94 L (1.18-3.74) K/mm3 Franklin # (Auto) 0.67 H (0.24-0.36) K/mm3 Eos # (Auto) 0.25 (0.04-0.36) K/mm3 Baso # (Auto) 0.04 (0.01-0.08) K/mm3 Manual Slide Review Abnormal smear Sodium 138 (136-145) mEq/L Potassium 5.3 H (3.5-5.1) mEq/L Chloride 102 (98-107) mEq/L Carbon Dioxide 30 (21-32) mEq/L Anion Gap 11.3 (5-15) BUN 35 H (7-18) mg/dL Creatinine 1.4 H (0.55-1.02) mg/dL Est Cr Clr Drug Dosing 20.69 mL/min Estimated GFR (MDRD) 36 (>60) mL/min BUN/Creatinine Ratio 25.0 H (14-18) Glucose 98 (83-115) mg/dL Calcium 8.7 (8.5-10.1) mg/dL Total Bilirubin 0.6 (0.2-1.0) mg/dL AST 28 (15-37) U/L ALT 38 (14-59) U/L Alkaline Phosphatase 176 H (46-116) U/L Total Protein 7.0 (6.4-8.2) g/dl Albumin 3.6 (3.4-5.0) g/dl Globulin 3.4 gm/dL Albumin/Globulin Ratio 1.1 (1-2) Med Orders - Current: Current Medications Albuterol (Proventil Neb Soln) 2.5 mg NEB Q2H PRN PRN Reason: Wheezing Amlodipine Besylate (Norvasc) 10 mg PO DAILY [facility] Last Admin: 02/21/20 08:59 Dose: 10 mg Artificial Tears (Refresh Liquigel 1%) 0 ml EYEBOTH DAILY PRN PRN Reason: DRY EYES Last Admin: 02/20/20 18:05 Dose: 1 drop Cyanocobalamin (Vitamin B12) 500 mcg PO DAILY [facility] Last Admin: 02/21/20 09:00 Dose: 500 mcg Famotidine (Pepcid) 20 mg PO QPM [facility] Last Admin: 02/20/20 18:00 Dose: 20 mg Heparin Sodium (Porcine) (Heparin Sodium) 5,000 units SUBCUT Q12H [facility] Last Admin: 02/21/20 09:00 Dose: 5,000 units Hydralazine HCl (Apresoline) 10 mg IVPUSH Q6H PRN PRN Reason: Hypertension Hydroxyzine HCl (Atarax) 25 mg PO Q6H PRN PRN Reason: Anxiety Last Admin: 02/20/20 23:31 Dose: 25 mg Sodium Chloride (Normal Saline) 1,000 mls @ 30 mls/hr IV ASDIRECTED [facility] Isosorbide Mononitrate (Imdur) 30 mg PO DAILY [facility] Last Admin: 02/21/20 09:00 Dose: 30 mg Levothyroxine Sodium (Levothyroxine) 75 mcg PO ACBREAKFAST [facility] Last Admin: 02/21/20 04:59 Dose: 75 mcg Losartan Potassium (Cozaar) 50 mg PO QPM [facility] Last Admin: 02/20/20 18:00 Dose: 50 mg Metoprolol Succinate (Toprol Xl) 12.5 mg PO BID [facility] Last Admin: 02/21/20 09:00 Dose: 12.5 mg Morphine Sulfate (Morphine) 1 mg IVPUSH Q4H PRN PRN Reason: Pain (severe 7-10) Last Admin: 02/21/20 01:09 Dose: 1 mg Nitroglycerin (Nitrostat) 0.4 mg SL Q5M PRN PRN Reason: Chest Pain Non-Formulary Medication (Biotin [Biotin]) 5,000 mcg PO DAILY [facility] Last Admin: 02/21/20 09:01 Dose: Not Given Jadenu (Deferasirox) 360 Mg PtkOwn Med 0 mg PO DAILY [facility] Last Admin: 02/21/20 09:01 Dose: 360 mg Olanzapine (Zyprexa) 5 mg IM Q8H PRN PRN Reason: Anxiety Ondansetron HCl (Zofran) 4 mg IVPUSH Q4H PRN PRN Reason: Nausea and Vomiting Last Admin: 02/21/20 04:57 Dose: 4 mg Polyethylene Glycol (Miralax) 17 gm PO DAILY [facility] Last Admin: 02/21/20 09:01 Dose: Not Given Senna/Docusate Sodium (Senna Plus) 2 tab PO BID [facility] Last Admin: 02/21/20 09:00 Dose: 2 tab Simvastatin (Zocor) 20 mg PO BEDTIME [facility] Last Admin: 02/20/20 20:03 Dose: 20 mg Sucralfate (Carafate) 2 gm PO BEDTIME [facility] Last Admin: 02/20/20 20:01 Dose: 2 gm Tramadol HCl (Ultram) 50 mg PO Q4H PRN PRN Reason: Pain (moderate 4-6) Last Admin: 02/21/20 04:59 Dose: 50 mg Vit A/Vit C/Vit E/Selen/Cu/Zn/Lutei (Icaps Mv) 1 tab PO DAILY [facility] Last Admin: 02/21/20 09:00 Dose: 1 tab Discontinued Medications Acetaminophen (Tylenol) 650 mg PO Q6H PRN PRN Reason: Pain (Mild 1-3) or Fever Acetaminophen (Tylenol) 650 mg RECTAL Q6H PRN PRN Reason: Pain (Mild 1-3) or Fever Amlodipine Besylate (Norvasc) 5 mg PO DAILY [facility] Last Admin: 02/20/20 13:32 Dose: Not Given Aspirin (Halfprin) 81 mg PO DAILY [facility] Bisacodyl (Dulcolax) 10 mg RECTAL ONETIME ONE Stop: 02/19/20 11:21 Last Admin: 02/19/20 11:26 Dose: 10 mg Diltiazem HCl (Cardizem Cd) 120 mg PO DAILY [facility] Last Admin: 02/19/20 09:18 Dose: Not Given Furosemide (Lasix) 40 mg IVPUSH NOW ONE Stop: 02/18/20 07:07 Last Admin: 02/18/20 08:05 Dose: 40 mg Furosemide (Lasix) 20 mg IVPUSH ONETIME ONE Stop: 02/21/20 08:10 Ceftriaxone Sodium 1 gm/ (Sodium Chloride) 100 mls @ 200 mls/hr IV Q24H [facility] Last Admin: 02/17/20 19:01 Dose: 200 mls/hr Magnesium Sulfate/Dextrose 1 (gm/ Premix) 100 mls @ 100 mls/hr IV Q1H [facility] Stop: 02/17/20 21:44 Last Admin: 02/17/20 21:48 Dose: Not Given Ceftriaxone Sodium 1 gm/ (Sodium Chloride) 100 mls @ 200 mls/hr IV Q24H [facility] Last Admin: 02/18/20 17:03 Dose: 200 mls/hr Lactulose (Cephulac) 20 gm PO ONETIME ONE Stop: 02/19/20 09:59 Last Admin: 02/19/20 10:30 Dose: 20 gm Metoprolol Tartrate (Lopressor) Confirm Administered Dose 5 mg .ROUTE .STK-MED ONE Stop: 02/18/20 19:47 Last Admin: 02/18/20 20:00 Dose: Not Given Metoprolol Tartrate (Lopressor) 2.5 mg IVPUSH ONETIME ONE Stop: 02/18/20 19:41 Last Admin: 02/18/20 20:00 Dose: 2.5 mg Non-Formulary Medication (Carboxymethylcellulose Sodium [Artificial Tears]) 1 drop EYEBOTH DAILY PRN PRN Reason: Dry Eyes Non-Formulary Medication (Deferasirox [Jadenu]) 360 mg PO DAILY [facility] Last Admin: 02/19/20 09:17 Dose: Not Given Non-Formulary Medication (Lactose-Reduced Food [Ensure]) 4 oz PO BID [facility] Last Admin: 02/19/20 09:19 Dose: Not Given Non-Formulary Medication (Lutein/Min/Vit C/Vit E Acetate) 1 cap PO DAILY [facility] Last Admin: 02/18/20 09:45 Dose: Not Given Oxycodone HCl (Oxycodone) 5 mg PO Q6H PRN PRN Reason: moderate pain 4-6/10 Last Admin: 02/19/20 01:30 Dose: 5 mg Polyethylene Glycol (Miralax) 17 gm PO ONETIME ONE Stop: 02/18/20 14:01 Last Admin: 02/18/20 15:08 Dose: 17 gm Potassium Chloride (Klor-Con M20) 40 meq PO ONETIME ONE Stop: 02/18/20 07:07 Last Admin: 02/18/20 08:05 Dose: 40 meq Potassium Chloride (Klor-Con M20) 40 meq PO ONETIME ONE Stop: 02/18/20 19:56 Last Admin: 02/18/20 19:55 Dose: 40 meq - Exam General: Alert, Oriented, Cooperative, No Acute Distress HEENT: Pupils Equal, Pupils Reactive, EOMI, Mucous Membr. Moist/Concepcion Neck: Supple, Trachea Midline Lungs: Clear to Auscultation, Normal Respiratory Effort Cardiovascular: Regular Rate, Regular Rhythm GI/Abdominal Exam: Normal Bowel Sounds, Soft, Distended (But no tenderness noted ) (Female) Exam: Normal External Exam Extremities: Normal Inspection, Normal Range of Motion, Non-Tender, No Pedal Edema, Normal Capillary Refill Skin: Warm, Dry, Intact Neurological: No New Focal Deficit Psy/Mental Status: Alert, Normal Affect, Normal Mood Sepsis Event Note - Evaluation Sepsis Screening Result: No Definite Risk - Focused Exam Vital Signs: Vital Signs Temp Pulse Resp BP BP Pulse Ox Pulse Ox 02/21/20 09:00 67 175/81 H 02/21/20 08:59 175/81 H 02/21/20 08:37 97.9 F 18 175/81 H 100 02/21/20 05:55 100 02/21/20 02:57 98 F 16 157/79 H 100 Date Exam was Performed: 02/21/20 Time Exam was Performed: 10:47 - Problem List Review Problem List Initiated/Reviewed/Updated: Yes - My Orders Last 24 Hours: My Active Orders 02/20/20 09:00 Deferasirox [Jadenu] 0 mg PO DAILY 02/20/20 18:00 Losartan [Cozaar] 50 mg PO QPM 02/21/20 07:16 Transfuse PRBC [Transfuse Red Blood Cells] [COMM] Routine 02/21/20 07:20 PACKED CELLS [RED BLOOD CELLS LP] [BBK] Routine TYPE AND SCREEN [BBK] Routine Transfuse Red Blood Cells [COMM] Routine 02/21/20 08:35 Patient Status [ADT] Routine 02/21/20 12:41 CMP [COMPREHENSIVE METABOLIC PN,CMP] [CHEM] Routine 02/22/20 05:11 CBC WITH AUTO DIFF [HEME] AM - Assessment Assessment:: Assessment/Plan Comment: Debility/deconditioning: Physical therapy was consulted, patient is making efforts to participate with physical therapy. Given the patient's medical condition, at this time patient has accepted to stop Jandeu Opted to continue with occasional transfusions. At this time, case management will be working to assist patient with [place] [facility] [place] where patient will continue with physical therapy. Hypertension: Of my exam this morning, patient's blood pressure 157/79, Norvasc was increased from 5 to 10 mg patient started on Cozaar 50 mg every afternoon yesterday. Continue patient on metoprolol 25 mg p.o. twice daily hold for systolic blood pressure less than 90 heart rate less than 60. Patient will also be on hydralazine 10 mg as needed systolic blood pressure greater than 180. Cardiovascular risk/nonsustained V. tach rule out acute coronary syndrome/ aberrant conduction of atrial fibrillation: Nursing staff has no reports of tachyarrhythmias overnight, echocardiogram that was done to the patient indicated normal left ventricular ejection fraction 55 to 60% but the patient noted with severe biatrial dilation. Since starting the patient on continuous oxygen, the patient's heart rate has been more within normal limits. On discharge to recommend to keep the patient on oxygen 2 L continuously. Otherwise, we will continue to monitor patient closely. Acute hypoxemic respiratory failure: Patient's tachyarrhythmias resolved while patient was on 2 L of oxygen. And patient will be going to [place] [facility] [place], recommendation will be to keep the patient on nasal oxygen on discharge liters nasal cannula. Hyperkalemia: resolved. Today, the patient's potassium 5.3. We will continue to monitor. . Dyslipidemia: Lipid profile was checked, triglycerides 132 LDL 201 HDL 114 cholesterol 61. Continue simvastatin 20 mg p.o. nightly, Functional tetraplegia: She is debilitated, will consult with therapy for strengthening. will advised patient to return every 2 hours. Frequent falls: It has been reported the patient has been falling frequently, patient also has bruises. I believe because of frequent falls is due to patient 's multiple narcotic medications for now, see patient is on a new patch along with baclofen which can also cause increased sedation. We will hold these medications for now. For pain control patient will be on hydrocodone 5/325 1 tablet p.o. a moderate pain. Pain control: 50 mg every 4 hours moderate pain, hold NSAIDs for now due to increased risk of bleeding. Hypothyroidism. Will continue the home dose of Synthroid 75 mcg q am. States was checked, within normal limits. Restlessness or Allergies: Zyprexa 5mg IV Q4H PRN restlessness or agitation. Nausea: In case of nausea use Zofran 4mg IVP Q4H PRN nausea. DVT Prophylaxis: Heparin 5,000 units subQ Q12H (dose adjusted to age and renal function). We will keep monitoring H&H and platelet count. UGI Bleed Prophylaxis: Protonix 40mg PO QPM before dinner, Mylanta 30 mL q4h PRN indigestion. Constipation Prophylaxis: The patient has had 1 bowel movement, continue Senokot S 2 tabs PO BID, MiraLAX 17 grams PO at 1400 daily PRN no bowl movement , no bowel movement tomorrow, will give patient enemas. Status: DNR. Disposition: Patient will remain on the medical floor, will transfuse 1 unit of PRBC today if can be found given the patient's antibodies. Patient is stable for discharge by from medicine stand point. discharge patient once placement is found given patient will be transitioning from an assisted living to a [place] [facility]. - Plan Plan:: .
--- NOTE | 2020-02-21 15:46 | PN ---
DATE OF SERVICE: 02/21/2020 ADDENDUM: The patient was seen, examined, and discussed by me with Feliz Mcdonald PA-C. For the last 24 hours, Ms. Hernández is doing reasonably well. She is eating and drinking. No fevers or chills. No chest pain. Vitals are stable. After we started the patient on continuous nasal cannula oxygen 2 L/minute, the patient has not had any more episodes of paroxysmal atrial fibrillation and stays in stable sinus rhythm. From the standpoint that even with well corrected electrolytes, appropriate doses of beta-blockers, patient kept having accidental episodes of atrial fibrillation with aberrant conduction, but she stopped having any episodes of AFib with aberrant conduction after we started the patient on continuous nasal cannula oxygen 2 L/minute. We believe that the patient does have accidental episodes of drop in her pulse ox even for short periods of time that trigger the patient's paroxysmal atrial fibrillation and really improved after oxygen started. The patient will stay in-house. We will continue oxygen. special population paraprofessional are working on placement patient to half-way because of her chronic debility and functional tetraplegia. (The patient is 2-person support all the time). The patient's hemoglobin today is 7.5, so we will transfuse 1 unit of PRBCs cautiously. We already spoke to the patient's oncologist and upon discharge patient to nursing facility, experimental medication for myelodysplastic syndrome will be stopped, so patient might require every 2 to 3 months transfusion of 1 to 2 units of PRBCs in the future and she needs to be established on other medications as needed. For details of the patient's review of systems, interval test results, physical exam, medications, and further plan of management, please see note prepared by Feliz Mcdonald PA-C. This was a prolonged visit. Total time spent in patient direct care and coordination of medical care, the patient's counseling at bedside about current management, further plans of management and discharge was longer than 35 minute. ANALI /[id number]
[2020-02-21] MEDS: Famotidine 20 MG Tab PO SCH (17:03)
[2020-02-21] MEDS: Losartan 100 MG Tab PO SCH (17:58)
[2020-02-21] MEDS: Simvastatin 20 MG Tab PO SCH (21:03)
[2020-02-21] MEDS: Sucralfate 1 GM Tab PO SCH (21:38)
[2020-02-21] MEDS ORDERED: Ondansetron 4 MG Tab.DIS PO PRN (21:40)
[2020-02-22] MEDS: traMADol 50 MG Tab PO PRN ×3 (01:43→12:57)
[2020-02-22] MEDS: Levothyroxine 75 MCG Tab PO SCH (05:55)
[2020-02-22] MEDS: Polyethylene Glycol 3350 Powder 17 GM Packet PO SCH (08:39)
[2020-02-22] MEDS: Metoprolol Succinate 25 MG Tab.ER PO SCH ×2 (08:42→20:45)
[2020-02-22] MEDS: Isosorbide Mononitrate 30 MG Tab.ER PO SCH (08:43)
[2020-02-22] MEDS: Multivitamins with Minerals/Folic Acid/Lutein/Zeaxanth Tab PO SCH (08:43)
[2020-02-22] MEDS: amLODIPine 10 MG Tab PO SCH (08:43)
[2020-02-22] MEDS: Cyanocobalamin (Vitamin B12) 1,000 MCG Tab PO SCH (08:44)
[2020-02-22] MEDS: Non-Formulary Medication 1 Each (Biotin [Biotin] 5,000 MCG) PO SCH (08:55)
[2020-02-22] MEDS: Heparin Sodium 5,000 Units/ML Vial SUBCUT SCH (08:56)
[2020-02-22] MEDS ORDERED: Fluticasone Propionate Nasal Spray 16 GM Bottle NASBOTH PRN (09:23)
[2020-02-22] MEDS: Tamsulosin 0.4 MG Cap.ER PO SCH (09:38)
[2020-02-22] MEDS: DEFERASIROX PO SCH (09:41)
[2020-02-22] MEDS ORDERED: Sodium Chloride 0.9% 250 ML IV SCH (13:15)
--- NOTE | 2020-02-22 16:14 | PCM.PN ---
- General Info Date of Service: 02/22/20 - Review of Systems Systems Review Comment:: The patient was seen and examined by me, discussed with Dr. Juarez patient had an uneventful night. No reports of nausea or vomiting, no abdominal pain. Patient's H&H dropped this morning will be transfused 1 unit of PRBC. Otherwise , nursing staff did not report any acute complaints with patient. - Patient Data Vitals - Most Recent: Last Vital Signs Temp 97.3 F 02/22/20 13:45 Pulse 61 02/22/20 13:45 Resp 17 02/22/20 13:45 BP 99/52 L 02/22/20 13:45 Pulse Ox 100 02/22/20 13:45 Weight - Most Recent: 92 lb 8 oz I&O - Last 24 Hours: Intake & Output 02/22/20 02/22/20 02/22/20 06:59 14:59 22:59 Intake Total 360 0 Output Total 645 350 Balance -285 -350 Lab Results Last 24 Hours: Laboratory Results - last 24 hr 02/21/20 02/22/20 Range/Units 12:49 05:54 WBC 5.59 (3.98-10.04) K/mm3 RBC 2.48 L (3.98-5.22) M/mm3 Hgb 7.3 L* (11.2-15.7) gm/dl Hct 24.5 L (34.1-44.9) % MCV 98.8 H (79.4-94.8) fl MCH 29.4 (25.6-32.2) pg MCHC 29.8 L (32.2-35.5) g/dl RDW Std Deviation 70.7 H (36.4-46.3) fL Plt Count 388 H (182-369) K/mm3 MPV 9.6 (9.4-12.3) fl Neut % (Auto) 68.2 (34.0-71.1) % Lymph % (Auto) 16.6 L (19.3-51.7) % [place] % (Auto) 10.9 (4.7-12.5) % Eos % (Auto) 3.4 (0.7-5.8) Baso % (Auto) 0.5 (0.1-1.2) % Neut # (Auto) 3.81 (1.56-6.13) K/mm3 Lymph # (Auto) 0.93 L (1.18-3.74) K/mm3 [place] # (Auto) 0.61 H (0.24-0.36) K/mm3 Eos # (Auto) 0.19 (0.04-0.36) K/mm3 Baso # (Auto) 0.03 (0.01-0.08) K/mm3 Manual Slide Review Abnormal smear Blood Type O NEGATIVE Gel Antibody Screen Positive Antibody Identification Anti-K Crossmatch See Detail Med Orders - Current: Current Medications Albuterol (Proventil Neb Soln) 2.5 mg NEB Q2H PRN PRN Reason: Wheezing Amlodipine Besylate (Norvasc) 10 mg PO DAILY [facility] Last Admin: 02/22/20 08:43 Dose: 10 mg Artificial Tears (Refresh Liquigel 1%) 0 ml EYEBOTH DAILY PRN PRN Reason: DRY EYES Last Admin: 02/20/20 18:05 Dose: 1 drop Cyanocobalamin (Vitamin B12) 500 mcg PO DAILY [facility] Last Admin: 02/22/20 08:44 Dose: 500 mcg Famotidine (Pepcid) 20 mg PO QPM AYLA Last Admin: 02/21/20 17:03 Dose: 20 mg Fluticasone Propionate (Flonase) 0 gm NASBOTH Q4H PRN PRN Reason: nasal congestion Last Admin: 02/22/20 09:38 Dose: 1 spray Hydralazine HCl (Apresoline) 10 mg IVPUSH Q6H PRN PRN Reason: Hypertension Hydroxyzine HCl (Atarax) 25 mg PO Q6H PRN PRN Reason: Anxiety Last Admin: 02/20/20 23:31 Dose: 25 mg Sodium Chloride (Normal Saline) 250 mls @ 100 mls/hr IV ASDIRECTED [facility] Last Admin: 02/22/20 13:33 Dose: 100 mls/hr Isosorbide Mononitrate (Imdur) 30 mg PO DAILY [facility] Last Admin: 02/22/20 08:43 Dose: 30 mg Levothyroxine Sodium (Levothyroxine) 75 mcg PO ACBREAKFAST [facility] Last Admin: 02/22/20 05:55 Dose: 75 mcg Losartan Potassium (Cozaar) 50 mg PO QPM AYLA Last Admin: 02/21/20 17:58 Dose: 50 mg Metoprolol Succinate (Toprol Xl) 12.5 mg PO BID [facility] Last Admin: 02/22/20 08:42 Dose: 12.5 mg Morphine Sulfate (Morphine) 1 mg IVPUSH Q4H PRN PRN Reason: Pain (severe 7-10) Last Admin: 02/21/20 11:05 Dose: 1 mg Nitroglycerin (Nitrostat) 0.4 mg SL Q5M PRN PRN Reason: Chest Pain Non-Formulary Medication (Biotin [Biotin]) 5,000 mcg PO DAILY [facility] Last Admin: 02/22/20 08:55 Dose: Not Given Jadenu (Deferasirox) 360 Mg PtkOwn Med 0 mg PO DAILY [facility] Last Admin: 02/22/20 09:41 Dose: 360 mg Olanzapine (Zyprexa) 5 mg IM Q8H PRN PRN Reason: Anxiety Ondansetron HCl (Zofran Odt) 4 mg PO Q6H PRN PRN Reason: Nausea/Vomiting Polyethylene Glycol (Miralax) 17 gm PO DAILY [facility] Last Admin: 02/22/20 08:39 Dose: 17 gm Senna/Docusate Sodium (Senna Plus) 2 tab PO BID [facility] Last Admin: 02/22/20 08:42 Dose: 2 tab Simvastatin (Zocor) 20 mg PO BEDTIME [facility] Last Admin: 02/21/20 21:03 Dose: 20 mg Sucralfate (Carafate) 2 gm PO BEDTIME [facility] Last Admin: 02/21/20 21:38 Dose: 1 gm Tamsulosin HCl (Flomax) 0.4 mg PO PCBREAKFAST [facility] Last Admin: 02/22/20 09:38 Dose: 0.4 mg Tramadol HCl (Ultram) 50 mg PO Q4H PRN PRN Reason: Pain (moderate 4-6) Last Admin: 02/22/20 12:57 Dose: 50 mg Vit A/Vit C/Vit E/Selen/Cu/Zn/Lutei (Icaps Mv) 1 tab PO DAILY [facility] Last Admin: 02/22/20 08:43 Dose: 1 tab Discontinued Medications Acetaminophen (Tylenol) 650 mg PO Q6H PRN PRN Reason: Pain (Mild 1-3) or Fever Acetaminophen (Tylenol) 650 mg RECTAL Q6H PRN PRN Reason: Pain (Mild 1-3) or Fever Amlodipine Besylate (Norvasc) 5 mg PO DAILY [facility] Last Admin: 02/20/20 13:32 Dose: Not Given Aspirin (Halfprin) 81 mg PO DAILY [facility] Bisacodyl (Dulcolax) 10 mg RECTAL ONETIME ONE Stop: 02/19/20 11:21 Last Admin: 02/19/20 11:26 Dose: 10 mg Diltiazem HCl (Cardizem Cd) 120 mg PO DAILY [facility] Last Admin: 02/19/20 09:18 Dose: Not Given Furosemide (Lasix) 40 mg IVPUSH NOW ONE Stop: 02/18/20 07:07 Last Admin: 02/18/20 08:05 Dose: 40 mg Furosemide (Lasix) 20 mg IVPUSH ONETIME ONE Stop: 02/21/20 08:10 Heparin Sodium (Porcine) (Heparin Sodium) 5,000 units SUBCUT Q12H [facility] Last Admin: 02/22/20 08:56 Dose: 5,000 units Sodium Chloride (Normal Saline) 1,000 mls @ 30 mls/hr IV ASDIRECTED [facility] Ceftriaxone Sodium 1 gm/ (Sodium Chloride) 100 mls @ 200 mls/hr IV Q24H [facility] Last Admin: 02/17/20 19:01 Dose: 200 mls/hr Magnesium Sulfate/Dextrose 1 (gm/ Premix) 100 mls @ 100 mls/hr IV Q1H [facility] Stop: 02/17/20 21:44 Last Admin: 02/17/20 21:48 Dose: Not Given Ceftriaxone Sodium 1 gm/ (Sodium Chloride) 100 mls @ 200 mls/hr IV Q24H [facility] Last Admin: 02/18/20 17:03 Dose: 200 mls/hr Lactulose (Cephulac) 20 gm PO ONETIME ONE Stop: 02/19/20 09:59 Last Admin: 02/19/20 10:30 Dose: 20 gm Metoprolol Tartrate (Lopressor) Confirm Administered Dose 5 mg .ROUTE .STK-MED ONE Stop: 02/18/20 19:47 Last Admin: 02/18/20 20:00 Dose: Not Given Metoprolol Tartrate (Lopressor) 2.5 mg IVPUSH ONETIME ONE Stop: 02/18/20 19:41 Last Admin: 02/18/20 20:00 Dose: 2.5 mg Non-Formulary Medication (Carboxymethylcellulose Sodium [Artificial Tears]) 1 drop EYEBOTH DAILY PRN PRN Reason: Dry Eyes Non-Formulary Medication (Deferasirox [Jadenu]) 360 mg PO DAILY [facility] Last Admin: 02/19/20 09:17 Dose: Not Given Non-Formulary Medication (Lactose-Reduced Food [Ensure]) 4 oz PO BID [facility] Last Admin: 02/19/20 09:19 Dose: Not Given Non-Formulary Medication (Lutein/Min/Vit C/Vit E Acetate) 1 cap PO DAILY [facility] Last Admin: 02/18/20 09:45 Dose: Not Given Ondansetron HCl (Zofran) 4 mg IVPUSH Q4H PRN PRN Reason: Nausea and Vomiting Last Admin: 02/21/20 04:57 Dose: 4 mg Oxycodone HCl (Oxycodone) 5 mg PO Q6H PRN PRN Reason: moderate pain 4-6/10 Last Admin: 02/19/20 01:30 Dose: 5 mg Polyethylene Glycol (Miralax) 17 gm PO ONETIME ONE Stop: 02/18/20 14:01 Last Admin: 02/18/20 15:08 Dose: 17 gm Potassium Chloride (Klor-Con M20) 40 meq PO ONETIME ONE Stop: 02/18/20 07:07 Last Admin: 02/18/20 08:05 Dose: 40 meq Potassium Chloride (Klor-Con M20) 40 meq PO ONETIME ONE Stop: 02/18/20 19:56 Last Admin: 02/18/20 19:55 Dose: 40 meq - Exam General: Alert, Oriented, Cooperative HEENT: Pupils Equal, Pupils Reactive, EOMI Neck: Supple, Trachea Midline Lungs: Clear to Auscultation, Normal Respiratory Effort Cardiovascular: Regular Rate, Regular Rhythm GI/Abdominal Exam: Normal Bowel Sounds, Soft Skin: Warm, Dry, Other (Patient noted with multiple skin bruises) Wound/Incisions: Healing Well Neurological: Other (decreased strength which is chronic) Sepsis Event Note - Evaluation Sepsis Screening Result: No Definite Risk - Focused Exam Vital Signs: Vital Signs Temp Temp Pulse Pulse Resp BP BP 02/22/20 13:45 97.3 F 61 17 99/52 L 02/22/20 13:28 97.1 F 64 18 109/59 L 02/22/20 08:43 136/72 02/22/20 08:42 66 136/72 02/22/20 08:38 97.9 F 66 17 136/72 Pulse Ox 02/22/20 13:45 100 02/22/20 13:28 100 02/22/20 08:43 02/22/20 08:42 02/22/20 08:38 96 Date Exam was Performed: 02/22/20 Time Exam was Performed: 16:06 - Problem List Review Problem List Initiated/Reviewed/Updated: Yes - My Orders Last 24 Hours: My Active Orders 02/21/20 21:40 Ondansetron [Zofran ODT] 4 mg PO Q6H PRN 02/22/20 09:23 Fluticasone Propionate [Flonase] 0 gm NASBOTH Q4H PRN 02/22/20 10:00 Tamsulosin [Flomax] 0.4 mg PO PCBREAKFAST - Assessment Assessment:: Assessment: Debility/deconditioning: Hypertension: . Cardiovascular risk/nonsustained V. tach rule out acute coronary syndrome/ aberrant conduction of atrial fibrillation:. Acute hypoxemic respiratory failure. Dyslipidemia. Frequent falls. Pain control. Hypothyroidism. Nausea: In case of nausea use Zofran 4mg IVP Q4H PRN nausea. DVT Prophylaxis: UGI Bleed Prophylaxis. Constipation Prophylaxis. - Plan Plan:: Debility/deconditioning: Patient will continue with PT. Hypertension: continue Norvasc and Cozaar. hold per holding parameters. Cardiovascular risk/nonsustained V. tach rule out acute coronary syndrome/ aberrant conduction of atrial fibrillation:Resolved. Continue BB. Recommended for oxygen. monitor and replace electrolytes. Acute hypoxemic respiratory failure. Oxygen continuously. History of myelodysplastic syndrome: Patient opted to discontinue deferasinox. Discussed with patient's oncologist who recommended ferritin every 3 months, CBC every 3 weeks make sure H&H is stable and periodic transfusion if less than 7.0 Acute on chronic anemia: 1 unit of PRBC. Dyslipidemia: Continue simvastatin 20 mg p.o. nightly, Pain control: 50 mg every 4 hours moderate pain, hold NSAIDs for now due to increased risk of bleeding. Hypothyroidism. Continue Synthroid 75 mcg q am. States was checked, within normal limits. Nausea: In case of nausea use Zofran 4mg IVP Q4H PRN nausea. DVT Prophylaxis: Encourage ambulation. We will keep monitoring H&H and platelet count. UGI Bleed Prophylaxis: Protonix 40mg PO QPM before dinner, Mylanta 30 mL q4h PRN indigestion. Constipation Prophylaxis: continue stool softeners and hold for diarrhea. . Status: DNR. Disposition: Patient will stay longer than 96 hrs ,because we are still looking for placement for the patient given the patient will be leaving assisted leaving to assisted.discharge patient to assisted when placement is found.
[2020-02-22] MEDS: Losartan 100 MG Tab PO SCH (17:50)
[2020-02-22] MEDS: Famotidine 20 MG Tab PO SCH (17:50)
[2020-02-22] MEDS: Morphine 2 MG/ML Syringe IVPUSH PRN ×2 (17:51→22:15)
[2020-02-22] MEDS: Simvastatin 20 MG Tab PO SCH (20:45)
[2020-02-22] MEDS: Sucralfate 1 GM Tab PO SCH (20:45)
[2020-02-22] MEDS: hydrOXYzine HCl 25 MG Tab PO PRN (23:23)
[2020-02-23] MEDS: traMADol 50 MG Tab PO PRN ×2 (01:05→08:41)
[2020-02-23] MEDS: Levothyroxine 75 MCG Tab PO SCH (06:00)
[2020-02-23] MEDS: Polyethylene Glycol 3350 Powder 17 GM Packet PO SCH (08:38)
[2020-02-23] MEDS: Multivitamins with Minerals/Folic Acid/Lutein/Zeaxanth Tab PO SCH (08:42)
[2020-02-23] MEDS: Cyanocobalamin (Vitamin B12) 1,000 MCG Tab PO SCH (08:42)
[2020-02-23] MEDS: Isosorbide Mononitrate 30 MG Tab.ER PO SCH (08:50)
[2020-02-23] MEDS: Metoprolol Succinate 25 MG Tab.ER PO SCH (08:50)
[2020-02-23] MEDS: amLODIPine 10 MG Tab PO SCH (08:52)
[2020-02-23 08:55] VITALS: PULSE 69
[2020-02-23] MEDS: Non-Formulary Medication 1 Each (Biotin [Biotin] 5,000 MCG) PO SCH (08:55)
[2020-02-23] MEDS: DEFERASIROX PO SCH (08:55)
[2020-02-23] MEDS: Tamsulosin 0.4 MG Cap.ER PO SCH (09:03)
--- NOTE | 2020-02-23 11:09 | PCM.DCSUM1 ---
Discharge Summary - Hospital Course HPI Initial Comments: Medical history: Hypertension Hypothyroidism Chronic pain syndrome Arthritis History Macrocytic anemia Mild dementia History of re-current falls History of first-degree AV block Mrs. Hernández an 79-year-old female, resident of [facility] with past medical history as described above. The patient was brought in today for evaluation of increased confusion, reports of abnormal heartbeats and of recurrent falls. It was reported by ED staff that the patient was appeared to be more confused today afternoon, which was noted by [facility] staff at the same time, patient was found to be somewhat hypoxic, as reported by EMS patient was placed on oxygen in route to the ED. No obvious reports of chest pain or palpitations. Patient the ED, the patient's oxygen saturation on in the low 70s and 82 patient was placed on 2 L of oxygen that did improve patient's oxygen saturation. Patient was also noted with a bruise involving the left index finger. When patient was questioned, reported while sitting on her wheelchair she bruised her hand. Was woke up there was done to the patient in the ED indicated BC 7.3, H&H 8.4/27.5, platelets 413, sodium/potassium 141/4.1 chloride 101 CO2 29 BUN/creatinine 63/1.7 with baseline creatinine of 1.5-1.8, head CT, chest x-ray, as well as CT scan of abdomen pelvis did not indicate any obvious acute findings, UA negative. But EKG was done to the patient, was concerning for new onset paroxysmal atrial fibrillation and while in the ED, patient had multiple episodes of nonsustained ventricular tachycardia. Given this presentation, the patient will be mated to ICU for close monitoring. Diagnosis: Stroke: No - Discharge Data Discharge Date: 02/23/20 (Admit date: 02/17/20) Discharge Disposition: DC/Tfer to SNF 03 Condition: Good - Referral to Home Health Primary Care Physician: PCP None - Discharge Diagnosis/Problem(s) (1) Anemia SNOMED Code(s): 764075226 ICD Code: D64.9 - ANEMIA, UNSPECIFIED Status: Chronic Priority: High Qualifiers: Anemia type: other cause Other causes of anemia: other cause, not classified Qualified Code(s): D64.89 - Other specified anemias (2) Hypoxia SNOMED Code(s): 306338396 ICD Code: R09.02 - HYPOXEMIA Status: Chronic Priority: High (3) Renal insufficiency SNOMED Code(s): 776039145, 205386283 ICD Code: N28.9 - DISORDER OF KIDNEY AND URETER, UNSPECIFIED Status: Chronic Priority: Medium (4) Emphysema of lung SNOMED Code(s): 90289025 ICD Code: J43.9 - EMPHYSEMA, UNSPECIFIED Status: Chronic Priority: Low Qualifiers: Emphysema type: unspecified Qualified Code(s): J43.9 - Emphysema, unspecified (5) Myelodysplastic syndrome SNOMED Code(s): 319161571 ICD Code: D46.9 - MYELODYSPLASTIC SYNDROME, UNSPECIFIED Status: Chronic Priority: Medium (6) Back pain SNOMED Code(s): 712273530 ICD Code: M54.9 - DORSALGIA, UNSPECIFIED Status: Chronic Priority: High Qualifiers: Back pain location: back pain in unspecified location Chronicity: acute Back pain laterality: bilateral Qualified Code(s): M54.9 - Dorsalgia, unspecified (7) Bulging lumbar disc SNOMED Code(s): 429651275 ICD Code: M51.26 - OTHER INTERVERTEBRAL DISC DISPLACEMENT, LUMBAR REGION Status: Chronic Priority: High (8) Chronic low back pain SNOMED Code(s): 033609047 ICD Code: M54.5 - LOW BACK PAIN; G89.29 - OTHER CHRONIC PAIN Status: Chronic Priority: Medium Qualifiers: Back pain laterality: midline Sciatica presence: unspecified whether sciatica present Qualified Code(s): M54.5 - Low back pain; G89.29 - Other chronic pain (9) Generalized weakness SNOMED Code(s): 14812470 ICD Code: R53.1 - WEAKNESS Status: Acute Priority: High (10) COPD (chronic obstructive pulmonary disease) SNOMED Code(s): 86406109 ICD Code: J44.9 - CHRONIC OBSTRUCTIVE PULMONARY DISEASE, UNSPECIFIED Status : Chronic Priority: Low Qualifiers: COPD type: unspecified COPD Qualified Code(s): J44.9 - Chronic obstructive pulmonary disease, unspecified (11) Cerebrovascular disease SNOMED Code(s): 65071795 ICD Code: I67.9 - CEREBROVASCULAR DISEASE, UNSPECIFIED Status: Chronic Priority: Low (12) Depression SNOMED Code(s): 69889016 ICD Code: F32.9 - MAJOR DEPRESSIVE DISORDER, SINGLE EPISODE, UNSPECIFIED Status: Chronic Priority: Low Qualifiers: Depression Type: other depression Qualified Code(s): F32.89 - Other specified depressive episodes (13) Former smoker SNOMED Code(s): 4058916 ICD Code: Z87.891 - PERSONAL HISTORY OF NICOTINE DEPENDENCE Status: Chronic Priority: Low (14) Glaucoma SNOMED Code(s): 67702934 ICD Code: H40.9 - UNSPECIFIED GLAUCOMA Status: Chronic Priority: Low Qualifiers: Glaucoma type: unspecified (15) HTN (hypertension) SNOMED Code(s): 28276747 ICD Code: I10 - ESSENTIAL (PRIMARY) HYPERTENSION Status: Chronic Priority : Medium Qualifiers: Hypertension type: unspecified Qualified Code(s): I10 - Essential (primary ) hypertension (16) History of CVA (cerebrovascular accident) SNOMED Code(s): 980341480 ICD Code: Z86.73 - PRSNL HX OF TIA (TIA), AND CEREB INFRC W/O RESID DEFICITS Status: Chronic Priority: Low (17) History of TIA (transient ischemic attack) SNOMED Code(s): 282745786 ICD Code: Z86.73 - PRSNL HX OF TIA (TIA), AND CEREB INFRC W/O RESID DEFICITS Status: Chronic Priority: Low (18) Osteopenia SNOMED Code(s): 890783080 ICD Code: M85.80 - OTH DISRD OF BONE DENSITY AND STRUCTURE, UNSPECIFIED SITE Status: Chronic Priority: Medium Qualifiers: Osteopenia location: unspecified Qualified Code(s): M85.80 - Other specified disorders of bone density and structure, unspecified site (19) Osteoporosis SNOMED Code(s): 69505513 ICD Code: M81.0 - AGE-RELATED OSTEOPOROSIS W/O CURRENT PATHOLOGICAL FRACTURE Status: Chronic Priority: Medium Qualifiers: Osteoporosis type: unspecified Presence of current pathological fracture: unspecified Qualified Code(s): M81.0 - Age-related osteoporosis without current pathological fracture (20) Rheumatoid arthritis SNOMED Code(s): 28332980 ICD Code: M06.9 - RHEUMATOID ARTHRITIS, UNSPECIFIED Status: Chronic Priority: Low Qualifiers: Rheumatoid arthritis location: unspecified site Rheumatoid factor presence : unspecified presence Qualified Code(s): M06.9 - Rheumatoid arthritis, unspecified (21) Vitamin D deficiency SNOMED Code(s): 06065827 ICD Code: E55.9 - VITAMIN D DEFICIENCY, UNSPECIFIED Status: Chronic Priority: Medium (22) Frequent falls SNOMED Code(s): 439924471 ICD Code: R29.6 - REPEATED FALLS Status: Acute Priority: High (23) Physical deconditioning SNOMED Code(s): 10724732823526 ICD Code: R53.81 - OTHER MALAISE Status: Acute (24) Dyslipidemia SNOMED Code(s): 074949680 ICD Code: E78.5 - HYPERLIPIDEMIA, UNSPECIFIED Status: Acute (25) Hypothyroidism SNOMED Code(s): 87472206 ICD Code: E03.9 - HYPOTHYROIDISM, UNSPECIFIED Status: Chronic Priority: Low Qualifiers: Hypothyroidism type: unspecified Qualified Code(s): E03.9 - Hypothyroidism , unspecified - Patient Summary/Data Consults: Consultations 02/17/20 17:42 PT Evaluation and Treatment [CONS] Routine 02/20/20 11:09 Consult to Speech Language Pathology [JOURNALIST Evaluation and Treatment] [CONS] Routine Labs Pending at D/C: None Recommended Follow-up Testing/Procedures: Follow-up with primary care provider within 5-7 days of discharge. Follow-up with oncology as scheduled. Hospital Course: [facility] onset A. fib with nonsustained ventricular tachycardia. Time she is also noted to have oxygen saturations in the 70s to 80% range. She is well-known to this service after being admitted multiple times for weakness with falls.S he was started on 2 L of oxygen which did increase her saturations. Goal was to keep saturations above 91%. She was given magnesium and started on 12.5 mg p.o. beta-maikol. She is noted to have bruising scattered throughout her entire body. Does carry history of hypertension and her Norvasc was continued. Her mental status did improve with her oxygen. Electrolytes were supplemented. He did work with PT/OT who are recommending SNF placement. Of note patient has been here before and had refused SNF in the past. A cardiogram was obtained showing 1. Left ventricular ejection fraction, by visual estimation is 60 to 65%. 2. Elevated mean left arterial pressure. 3. Pseudonormal (Grade 2) 1 of LV diastolic filling. 4. The right ventricular systolic pressure is moderate to severely elevated at 51.8 mmHg. 5. Trivial pericardial effusion. 6. The aortic root is/ are normal. 7. There is severe biatrial dilation. Attempts were made multiple times to wean patient off oxygen however when we would she would note increased runs of self resolving ventricular tachycardia. Therefore oxygen was continued at discharge 2 L. She does have a history of myelodysplastic syndrome and her hemoglobin was noted to trend downward, getting is low at 7.3. Patient's oncologist Dr. Bassett, was contacted. 1 unit of packed red blood cells was given bring her hemoglobin up to 10.0 gm/dl. Patient continued to have weakness and difficulty walking even with treatment. Unfortunately patient is on Jadenu for her myelodysplastic syndrome and no facility will take her while on this medication as it is quite expensive. This was discussed with the patient and she agrees to discontinue this. Prior to discharge she was started on Imdur 30 mg p.o. daily, Cozaar 50 mg p.o. every afternoon, metoprolol 12.5 mg p.o. twice daily, and Zocor 20 mg p.o. at bedtime. Home medications were otherwise continued. She was discharged to [facility] today. - Patient Instructions Diet: Low Sodium Diet, Other: 2 gram Activity: As Tolerated Driving: Do Not Drive Showering/Bathing: May Shower Notify Provider of: Fever, Increased Pain, Nausea and/or Vomiting Other/Special Instructions: Follow-up with primary care provider within 5-7 days of discharge, sooner if needed. Follow-up with Dr. Bassett as directed. Oncology recommending re-check CBC every 3 weeks and ferritin every 3 months. Recommends transfusion if hemoglobin below 7. Continue PT at SNF. Take all new medications as directed. We checked you for COVID-19 on 02/21/20 and you were negative. We had no concerns you were infected but the [facility] required this. Should symptoms return or worsen contact primary care provider or return to the Emergency Department. - Discharge Plan *PRESCRIPTION DRUG MONITORING PROGRAM REVIEWED*: No *COPY OF PRESCRIPTION DRUG MONITORING REPORT IN PATIENT GRABIEL: No Prescriptions/Med Rec: Isosorbide Mononitrate [Imdur] 30 mg PO DAILY #20 tab.er Losartan [Cozaar] 50 mg PO QPM #20 tablet Metoprolol Succinate [Toprol XL] 12.5 mg PO BID #20 tab.er Simvastatin [Zocor] 20 mg PO BEDTIME #20 tablet Home Medications: Home Meds Ondansetron [Zofran] 1 tab PO Q4H PRN 08/12/17 [History] Emollient Base [Emollient] 1 applic TOP DAILY PRN 12/01/18 [History] Cyanocobalamin (Vitamin B-12) [Vitamin B-12] 500 mcg PO DAILY 04/14/19 [History] Lactose-Reduced Food [Ensure] 4 oz PO BID 04/14/19 [History] Lutein/Min/Vit C/Vit E Acetate [Ocuvite Lutein] 1 cap PO DAILY 04/14/19 [History ] Nitroglycerin [Nitrostat] 0.4 mg SL ASDIRECTED PRN 04/14/19 [History] Tamsulosin [Flomax] 0.4 mg PO DAILY 04/14/19 [History] Biotin 5,000 mcg PO DAILY 01/09/20 [History] Carboxymethylcellulose Sodium [Artificial Tears] 1 drop EYEBOTH DAILY PRN [History] Sennosides/Docusate Sodium [Senna-S] 1 tab PO DAILY PRN 01/09/20 [History] Levothyroxine 75 mcg PO ACBREAKFAST #30 tab 01/14/20 [Rx] amLODIPine [Norvasc] 5 mg PO DAILY #30 tablet 01/14/20 [Rx] Fluticasone Propionate [Flonase] 1 spray NASBOTH BID 01/31/20 [History] polyethylene glycoL 3350 [MiraLAX] 17 gm PO DAILY 01/31/20 [History] fentaNYL [Fentanyl] 1 each TD Q72H 02/17/20 [History] hydrOXYzine HCL [hydrOXYzine] 25 mg PO Q6H PRN 02/17/20 [History] traMADol [Ultram] 25 mg PO Q4H PRN 02/17/20 [History] Isosorbide Mononitrate [Imdur] 30 mg PO DAILY #20 tab.er 02/23/20 [Rx] Losartan [Cozaar] 50 mg PO QPM #20 tablet 02/23/20 [Rx] Metoprolol Succinate [Toprol XL] 12.5 mg PO BID #20 tab.er 02/23/20 [Rx] Simvastatin [Zocor] 20 mg PO BEDTIME #20 tablet 02/23/20 [Rx] Oxygen Therapy Mode: Nasal Cannula Oxygen Flow Rate (L/min): 2 Maintain SpO2% greater than: 88 Patient Handouts: Understanding Your Risk for Falls, Heart Failure Referrals: Katherine Beckford MD [Physician] - Srikanth Bassett MD [Ordering Only Provider] - 03/06/20 4:00 pm (Appointment with Dr Bassett @ [facility] in [place] on ThursdayMarch 06@4:00PM.) - Discharge Summary/Plan Comment DC Time >30 min.: Yes (45 mins ) - General Info Date of Service: 02/23/20 Admission Dx/Problem (Free Text: Admission Diagnosis/Problem Admission Diagnosis/Problem acute hypoxemic respiratory failure and confusion Functional Status: Reports: Pain Controlled, Tolerating Diet, Ambulating, Urinating. Denies: New Symptoms - Review of Systems General: Reports: Weakness (chronic ), Fatigue (chronic ), Malaise (chronic ). Denies: Fever, Chills HEENT: Denies: Headaches, Sore Throat Pulmonary: Reports: No Symptoms. Denies: Shortness of Breath, Cough, Hemoptysis , Wheezing Cardiovascular: Reports: No Symptoms. Denies: Chest Pain, Palpitations, Edema Gastrointestinal: Reports: No Symptoms. Denies: Abdominal Pain, Constipation, Diarrhea, Nausea, Vomiting Genitourinary: Reports: No Symptoms. Denies: Pain Musculoskeletal: Reports: No Symptoms Skin: Reports: No Symptoms. Denies: Cyanosis Neurological: Reports: Difficulty Walking (2/2 weakness ), Weakness. Denies: Confusion, Gait Disturbance Psychiatric: Reports: No Symptoms - Patient Data Vitals - Most Recent: Last Vital Signs Temp 97.2 F 02/23/20 03:29 Pulse 69 02/23/20 08:50 Resp 16 02/23/20 03:29 BP 189/89 H 02/23/20 08:52 Pulse Ox 98 02/23/20 03:29 Weight - Most Recent: 90 lb I&O - Last 24 hours: Intake & Output 02/22/20 02/23/20 02/23/20 22:59 06:59 14:59 Intake Total 860 400 Output Total 225 Balance 635 400 Lab Results - Last 24 hrs: Laboratory Results - last 24 hr 02/21/20 02/23/20 02/23/20 Range/Units 12:49 06:17 06:17 WBC 5.28 (3.98-10.04) K/mm3 RBC 3.49 L (3.98-5.22) M/mm3 Hgb 10.0 L D (11.2-15.7) gm/dl Hct 32.5 L (34.1-44.9) % MCV 93.1 D (79.4-94.8) fl MCH 28.7 (25.6-32.2) pg MCHC 30.8 L (32.2-35.5) g/dl RDW Std Deviation 71.4 H (36.4-46.3) fL Plt Count 355 (182-369) K/mm3 MPV 10.0 (9.4-12.3) fl Neut % (Auto) 65.1 (34.0-71.1) % Lymph % (Auto) 18.2 L (19.3-51.7) % [place] % (Auto) 12.1 (4.7-12.5) % Eos % (Auto) 4.0 (0.7-5.8) Baso % (Auto) 0.4 (0.1-1.2) % Neut # (Auto) 3.44 (1.56-6.13) K/mm3 Lymph # (Auto) 0.96 L (1.18-3.74) K/mm3 [place] # (Auto) 0.64 H (0.24-0.36) K/mm3 Eos # (Auto) 0.21 (0.04-0.36) K/mm3 Baso # (Auto) 0.02 (0.01-0.08) K/mm3 Manual Slide Review Abnormal smear Sodium 136 (136-145) mEq/L Potassium 4.9 (3.5-5.1) mEq/L Chloride 100 (98-107) mEq/L Carbon Dioxide 31 (21-32) mEq/L Anion Gap 9.9 (5-15) BUN 34 H (7-18) mg/dL Creatinine 1.2 H (0.55-1.02) mg/dL Est Cr Clr Drug Dosing 23.70 mL/min Estimated GFR (MDRD) 43 (>60) mL/min BUN/Creatinine Ratio 28.3 H (14-18) Glucose 103 (83-115) mg/dL Calcium 8.4 L (8.5-10.1) mg/dL Total Bilirubin 0.9 (0.2-1.0) mg/dL AST 28 (15-37) U/L ALT 39 (14-59) U/L Alkaline Phosphatase 187 H (46-116) U/L Total Protein 7.2 (6.4-8.2) g/dl Albumin 3.7 (3.4-5.0) g/dl Globulin 3.5 gm/dL Albumin/Globulin Ratio 1.1 (1-2) Blood Type O NEGATIVE Gel Antibody Screen Positive Antibody Identification Anti-K Crossmatch See Detail Med Orders - Current: Current Medications Albuterol (Proventil Neb Soln) 2.5 mg NEB Q2H PRN PRN Reason: Wheezing Amlodipine Besylate (Norvasc) 10 mg PO DAILY [facility] Last Admin: 02/23/20 08:52 Dose: 10 mg Artificial Tears (Refresh Liquigel 1%) 0 ml EYEBOTH DAILY PRN PRN Reason: DRY EYES Last Admin: 02/20/20 18:05 Dose: 1 drop Cyanocobalamin (Vitamin B12) 500 mcg PO DAILY [facility] Last Admin: 02/23/20 08:42 Dose: 500 mcg Fluticasone Propionate (Flonase) 0 gm NASBOTH Q4H PRN PRN Reason: nasal congestion Last Admin: 02/22/20 09:38 Dose: 1 spray Hydralazine HCl (Apresoline) 10 mg IVPUSH Q6H PRN PRN Reason: Hypertension Hydroxyzine HCl (Atarax) 25 mg PO Q6H PRN PRN Reason: Anxiety Last Admin: 02/22/20 23:23 Dose: 25 mg Sodium Chloride (Normal Saline) 250 mls @ 100 mls/hr IV ASDIRECTED [facility] Last Admin: 02/22/20 13:33 Dose: 100 mls/hr Isosorbide Mononitrate (Imdur) 30 mg PO DAILY [facility] Last Admin: 02/23/20 08:50 Dose: 30 mg Levothyroxine Sodium (Levothyroxine) 75 mcg PO ACBREAKFAST [facility] Last Admin: 02/23/20 06:00 Dose: 75 mcg Losartan Potassium (Cozaar) 50 mg PO QPM [facility] Last Admin: 02/22/20 17:50 Dose: 50 mg Metoprolol Succinate (Toprol Xl) 12.5 mg PO BID [facility] Last Admin: 02/23/20 08:50 Dose: 12.5 mg Morphine Sulfate (Morphine) 1 mg IVPUSH Q4H PRN PRN Reason: Pain (severe 7-10) Last Admin: 02/22/20 22:15 Dose: 1 mg Nitroglycerin (Nitrostat) 0.4 mg SL Q5M PRN PRN Reason: Chest Pain Non-Formulary Medication (Biotin [Biotin]) 5,000 mcg PO DAILY [facility] Last Admin: 02/23/20 08:55 Dose: Not Given Jadenu (Deferasirox) 360 Mg PtkOwn Med 0 mg PO DAILY [facility] Last Admin: 02/23/20 08:55 Dose: 360 mg Olanzapine (Zyprexa) 5 mg IM Q8H PRN PRN Reason: Anxiety Ondansetron HCl (Zofran Odt) 4 mg PO Q6H PRN PRN Reason: Nausea/Vomiting Polyethylene Glycol (Miralax) 17 gm PO DAILY [facility] Last Admin: 02/23/20 08:38 Dose: 17 gm Senna/Docusate Sodium (Senna Plus) 2 tab PO BID [facility] Last Admin: 02/23/20 08:42 Dose: 2 tab Simvastatin (Zocor) 20 mg PO BEDTIME [facility] Last Admin: 02/22/20 20:45 Dose: 20 mg Tamsulosin HCl (Flomax) 0.4 mg PO PCBREAKFAST [facility] Last Admin: 02/23/20 09:03 Dose: 0.4 mg Tramadol HCl (Ultram) 50 mg PO Q4H PRN PRN Reason: Pain (moderate 4-6) Last Admin: 02/23/20 08:41 Dose: 50 mg Vit A/Vit C/Vit E/Selen/Cu/Zn/Lutei (Icaps Mv) 1 tab PO DAILY [facility] Last Admin: 02/23/20 08:42 Dose: Not Given Discontinued Medications Acetaminophen (Tylenol) 650 mg PO Q6H PRN PRN Reason: Pain (Mild 1-3) or Fever Acetaminophen (Tylenol) 650 mg RECTAL Q6H PRN PRN Reason: Pain (Mild 1-3) or Fever Amlodipine Besylate (Norvasc) 5 mg PO DAILY [facility] Last Admin: 02/20/20 13:32 Dose: Not Given Aspirin (Halfprin) 81 mg PO DAILY [facility] Bisacodyl (Dulcolax) 10 mg RECTAL ONETIME ONE Stop: 02/19/20 11:21 Last Admin: 02/19/20 11:26 Dose: 10 mg Diltiazem HCl (Cardizem Cd) 120 mg PO DAILY [facility] Last Admin: 02/19/20 09:18 Dose: Not Given Famotidine (Pepcid) 20 mg PO QPM [facility] Last Admin: 02/22/20 17:50 Dose: 20 mg Furosemide (Lasix) 40 mg IVPUSH NOW ONE Stop: 02/18/20 07:07 Last Admin: 02/18/20 08:05 Dose: 40 mg Furosemide (Lasix) 20 mg IVPUSH ONETIME ONE Stop: 02/21/20 08:10 Last Admin: 02/22/20 16:49 Dose: Not Given Heparin Sodium (Porcine) (Heparin Sodium) 5,000 units SUBCUT Q12H [facility] Last Admin: 02/22/20 08:56 Dose: 5,000 units Sodium Chloride (Normal Saline) 1,000 mls @ 30 mls/hr IV ASDIRECTED [facility] Ceftriaxone Sodium 1 gm/ (Sodium Chloride) 100 mls @ 200 mls/hr IV Q24H [facility] Last Admin: 02/17/20 19:01 Dose: 200 mls/hr Magnesium Sulfate/Dextrose 1 (gm/ Premix) 100 mls @ 100 mls/hr IV Q1H [facility] Stop: 02/17/20 21:44 Last Admin: 02/17/20 21:48 Dose: Not Given Ceftriaxone Sodium 1 gm/ (Sodium Chloride) 100 mls @ 200 mls/hr IV Q24H [facility] Last Admin: 02/18/20 17:03 Dose: 200 mls/hr Lactulose (Cephulac) 20 gm PO ONETIME ONE Stop: 02/19/20 09:59 Last Admin: 02/19/20 10:30 Dose: 20 gm Metoprolol Tartrate (Lopressor) Confirm Administered Dose 5 mg .ROUTE .STK-MED ONE Stop: 02/18/20 19:47 Last Admin: 02/18/20 20:00 Dose: Not Given Metoprolol Tartrate (Lopressor) 2.5 mg IVPUSH ONETIME ONE Stop: 02/18/20 19:41 Last Admin: 02/18/20 20:00 Dose: 2.5 mg Non-Formulary Medication (Carboxymethylcellulose Sodium [Artificial Tears]) 1 drop EYEBOTH DAILY PRN PRN Reason: Dry Eyes Non-Formulary Medication (Deferasirox [Jadenu]) 360 mg PO DAILY [facility] Last Admin: 02/19/20 09:17 Dose: Not Given Non-Formulary Medication (Lactose-Reduced Food [Ensure]) 4 oz PO BID [facility] Last Admin: 02/19/20 09:19 Dose: Not Given Non-Formulary Medication (Lutein/Min/Vit C/Vit E Acetate) 1 cap PO DAILY [facility] Last Admin: 02/18/20 09:45 Dose: Not Given Ondansetron HCl (Zofran) 4 mg IVPUSH Q4H PRN PRN Reason: Nausea and Vomiting Last Admin: 02/21/20 04:57 Dose: 4 mg Oxycodone HCl (Oxycodone) 5 mg PO Q6H PRN PRN Reason: moderate pain 4-6/10 Last Admin: 02/19/20 01:30 Dose: 5 mg Polyethylene Glycol (Miralax) 17 gm PO ONETIME ONE Stop: 02/18/20 14:01 Last Admin: 02/18/20 15:08 Dose: 17 gm Potassium Chloride (Klor-Con M20) 40 meq PO ONETIME ONE Stop: 02/18/20 07:07 Last Admin: 02/18/20 08:05 Dose: 40 meq Potassium Chloride (Klor-Con M20) 40 meq PO ONETIME ONE Stop: 02/18/20 19:56 Last Admin: 02/18/20 19:55 Dose: 40 meq Sucralfate (Carafate) 2 gm PO BEDTIME [facility] Last Admin: 02/22/20 20:45 Dose: 2 gm - Exam Quality Assessment: Reports: Supplemental Oxygen (2L), DVT Prophylaxis General: Reports: Alert, Oriented, Cooperative, No Acute Distress HEENT: Reports: Pupils Equal, Pupils Reactive, Mucous Membr. Moist/[place] Neck: Reports: Supple, Trachea Midline Lungs: Reports: Clear to Auscultation, Normal Respiratory Effort Cardiovascular: Reports: Regular Rate, Regular Rhythm GI/Abdominal Exam: Normal Bowel Sounds, Soft, Non-Tender, No Distention (Female) Exam: Deferred Rectal (Female) Exam: Deferred Extremities: Normal Inspection, Normal Range of Motion, Non-Tender, No Pedal Edema, Normal Capillary Refill Skin: Reports: Warm, Dry, Intact Neurological: Reports: No New Focal Deficit Psy/Mental Status: Reports: Alert
[2020-02-23 11:20] VITALS: BP 131/76
== END 2020-02-23 15:28 | DRG 189 ==
LOC: JD.ED 14:41 → JD.ICU 17:32
PROVIDERS: ADMIT Internal Medicine; ATTEND Internal Medicine
PROC: 30233N1 Transfusion of Nonautologous Red Blood Cells into Peripheral Vein, Percutaneous Approach (ICD-10-PCS; principal; 2020-02-17)
DX: J96.01 Acute respiratory failure with hypoxia (principal); R53.2 Functional quadriplegia; I24.9 Acute ischemic heart disease, unspecified; G93.41 Metabolic encephalopathy; I47.2 Ventricular tachycardia; N19 Unspecified kidney failure; S22.000A Wedge compression fracture of unspecified thoracic vertebra, initial encounter for closed fracture; R41.0 Disorientation, unspecified; R53.1 Weakness; I48.0 Paroxysmal atrial fibrillation; E03.9 Hypothyroidism, unspecified; G89.4 Chronic pain syndrome; M19.90 Unspecified osteoarthritis, unspecified site; F03.90 Unspecified dementia, unspecified severity, without behavioral disturbance, psychotic disturbance, mood disturbance, and anxiety; R29.6 Repeated falls; I44.0 Atrioventricular block, first degree; J43.9 Emphysema, unspecified; F32.9 Major depressive disorder, single episode, unspecified; F41.9 Anxiety disorder, unspecified; D46.9 Myelodysplastic syndrome, unspecified; Z91.81 History of falling; W19.XXXA Unspecified fall, initial encounter; M51.26 Other intervertebral disc displacement, lumbar region; I11.0 Hypertensive heart disease with heart failure; I50.9 Heart failure, unspecified; F32.89 Other specified depressive episodes; M85.80 Other specified disorders of bone density and structure, unspecified site; H40.9 Unspecified glaucoma; Z66 Do not resuscitate; M81.0 Age-related osteoporosis without current pathological fracture; M06.9 Rheumatoid arthritis, unspecified; E55.9 Vitamin D deficiency, unspecified; E78.5 Hyperlipidemia, unspecified; H54.7 Unspecified visual loss; I25.10 Atherosclerotic heart disease of native coronary artery without angina pectoris; K59.09 Other constipation; Z87.440 Personal history of urinary (tract) infections; Z87.891 Personal history of nicotine dependence; Z86.73 Personal history of transient ischemic attack (TIA), and cerebral infarction without residual deficits; Z79.890 Hormone replacement therapy; Z79.899 Other long term (current) drug therapy; Z88.6 Allergy status to analgesic agent; Z91.041 Radiographic dye allergy status; Z88.8 Allergy status to other drugs, medicaments and biological substances
CPT/HCPCS: 36415; 36430; 70450; 70450-26; 71250; 71250-26; 72125; 72125-26; 73140-26-FA; 73140-FA; 74176; 74176-26; 80053; 80061; 81001; 82550; 82553; 83735; 83880; 84100; 84132; 84443; 84484; 85025; 86850; 86870; 86900; 86901; 86902; 86922; 87086; 87641; 92610-GN; 93005; 93010; 93306; 94762; 97110-GP; 97116-GP; 97162-GP; 97530-GP; 99285; 99285-25; A9270-GY; J0696; J1644; J1940; J2270; J2405; J3475; J3490; J7050; P9016; U0002